=== PATIENT | female | born 1930 | race Caucasian/White ===

== ENCOUNTER 2016-10-29 10:50 | Inpatient (IN) | payer MEDICARE ==
[2016-10-29] MEDS ORDERED: oxyCODONE/Acetamin 5/325 MG* TAB PO ONE (11:18)
--- NOTE | 2016-10-29 11:27 | ED ---
Lower Extremity - HPI Summary HPI Summary: Patient arrives to ED with CC of right ankle pain and inability to bear weight s /p fall last night. Patient tripped over the coffee table and thinks she may have everted the ankle. denies hitting head, denies LOC. Immediate 10/10onset of pain. Nothing makes pain better or worse. Has been taking 400mg Ibuprofen since last night. PMHx includes RA with previous pain and complications of the R ankle. ROM limited in R ankle d/t pain. Ecchymosis surrounding medial ankle with deformity noted over medial ankle. Foot is in pronation during examination d/t visual deformity. Denies pain in knee or proximal lower leg. - History of Current Complaint Chief Complaint: EDExtremityLower Stated Complaint: RT LEG INJURY Time Seen by Provider: 10/29/16 11:04 Hx Obtained From: Patient Mechanism Of Injury: Fall From A Standing Position - tripping over object Onset of Pain: Hours Onset/Duration: Minutes Severity Initially: Moderate Severity Currently: Severe Pain Intensity: 5 Pain Scale Used: 0-10 Numeric Timing: Constant Location: Is Discrete @ - Right ankle Character Of Pain: Dull, Aching Associated Signs And Symptoms: Positive: Bruising Aggravating Factor(s): Standing, Ambulation Alleviating Factor(s): Rest Able to Bear Weight: No - Risk Factors Gout Risk Factors: Age Over 40 DVT Risk Factors: Negative Septic Arthritis Risk Factor: Prosthesis - bilateral knee replacements - Allergies/Home Medications Allergies/Adverse Reactions: Allergies Allergy/AdvReac Type Severity Reaction Status Date / Time Penicillins Allergy Unknown Unknown Verified 05/28/16 14:11 Reaction Details Home Medications: Home Medications Atenolol TAB* [Tenormin TAB* 25 MG] 25 mg PO DAILY 10/29/16 [History Confirmed 10/29/16] Calcium Carbonate-Cholecalcife [Calcium 600 + D 600-200 mg-Unit] 1 tab PO DAILY 10/29/16 [History Confirmed 10/29/16] Folic Acid TAB* [Folvite TAB*] 1 mg PO DAILY 10/29/16 [History Confirmed ] Methotrexate TAB* 10 mg PO MO 10/29/16 [History Confirmed 10/29/16] Olopatadine 0.2% (NF) [Pataday 0.2% (NF)] 1 drop BOTH EYES DAILY 10/29/16 [ History Confirmed 10/29/16] Simvastatin TAB(NF) [Zocor(NF)] 20 mg PO DAILY 10/29/16 [History Confirmed 10/29] PMH/Surg Hx/FS Hx/Imm Hx Previously Healthy: Yes Endocrine/Hematology History: Reports: Hx Thyroid Disease Denies: Hx Diabetes Cardiovascular History: Reports: Hx Hypertension, Hx Syncope Denies: Hx Congestive Heart Failure, Hx Pacemaker/ICD Respiratory History: Reports: Hx Pneumonia - 16 yrs ago., Hx Seasonal Allergies Denies: Hx Asthma, Hx Chronic Obstructive Pulmonary Disease (COPD) GI History: Reports: Other GI Disorders - DIVERTICULOSIS Denies: Hx Ulcer History: Denies: Hx Renal Disease Musculoskeletal History: Reports: Other Musculoskeletal History - RA Denies: Hx Osteoporosis Sensory History: Reports: Hx Cataracts, Hx Contacts or Glasses, Hx Hearing Aid - bilaterally Opthamlomology History: Reports: Hx Cataracts, Hx Contacts or Glasses Psychiatric History: Denies: Hx Panic Disorder - Cancer History Cancer Type, Location and Year: lung cancer two years ago, small, removed, no chemo - Surgical History Surgery Procedure, Year, and Place: BILATERAL KNEES, CHOLECYSTECTOMY, APPENDECTOMY, RIGHT PARTIAL PNEUMONECTOMY Infectious Disease History: No Infectious Disease History: Denies: Hx Hepatitis, Hx Human Immunodeficiency Virus (HIV), Traveled Outside the [place] in Last 30 Days - Family History Known Family History: Positive: None - Social History Occupation: Retired Lives: With Family Alcohol Use: Daily Alcohol Amount: glass of wine every night Hx Substance Use: No Substance Use Type: Reports: None Smoking Status (MU): Former Smoker Amount Used/How Often: quit smoking over 25 yrs ago. Have You Smoked in the Last Year: No Review of Systems Constitutional: Negative Eyes: Negative Cardiovascular: Negative Respiratory: Negative Positive: Arthralgia - right ankle pain, Decreased ROM - over right ankle Skin: Negative Neurological: Negative Psychological: Normal All Other Systems Reviewed And Are Negative: Yes Physical Exam Triage Information Reviewed: Yes Vital Signs On Initial Exam: Initial Vitals Temp Pulse Resp BP Pulse Ox 97.8 F 72 18 158/56 99 10/29/16 10:53 10/29/16 10:53 10/29/16 10:53 10/29/16 10:53 10/29/16 10:53 Vital Signs Reviewed: Yes Appearance: Positive: Well-Appearing, No Pain Distress Skin: Positive: Warm, Tender - with ecchymosis over medial R ankle with deformity Head/Face: Positive: Normal Head/Face Inspection Eyes: Positive: Normal, EOMI, MARIA E ENT: Positive: Normal ENT inspection Neck: Positive: Supple, Nontender, No Lymphadenopathy Respiratory/Lung Sounds: Positive: Clear to Auscultation, Breath Sounds Present Cardiovascular: Positive: Normal Musculoskeletal: Positive: Abnormal @ - deformity at r ankle, Pain @ - medial and lateral R ankle, no pain over knee or proximal lower extremity, Other - anterior drawer not performed d/t deformity and pain. no pain over palpation of calcaneus. Pain expressed at 10/10 over medial and lateral talus. ROM limited d/ t pain. Neurological: Positive: Sensory/Motor Intact, Other - pulses intact bilaterally of lower extremity Psychiatric: Positive: Normal AVPU Assessment: Alert Diagnostics - Vital Signs Vital Signs Temp Pulse Resp BP Pulse Ox 10/29/16 10:53 97.8 F 72 18 158/56 99 - Laboratory Result Diagrams: 10/29/16 13:15 10/29/16 13:15 Lab Statement: Any lab studies that have been ordered have been reviewed, and results considered in the medical decision making process. Lower Extremity Course/Dx - Course Course Of Treatment: Patient sent to xray. given oxycodone based on previous experience with medication and beers criteria recommendation for pain management in elderly. Patient experienced soft pressures 90/47 - and upper abdominal pain 1 hour after administration. Xray showed Trimalleolar fracture subluxed. Dr. Shrestha consulted with BIANCA, then . D/t reaction with pain management, we were unable to administer pain medication prior to reduction attempt. Post manipulation xray showed subluxation without reduction. Sugar tong splint applied. to consult with Fady. Will place sugar tong splint with adequate padding per Dr. Shrestha's orders. Admit to floor. Assessment/Plan: Dr Delacruz or Fady to see as inpatient tomorrow. - admit to hospitalist - Diagnoses Differential Diagnosis/HQI/PQRI: Positive: Dislocation, Fracture (Closed), Fracture (Open) Provider Diagnoses: Trimalleolar fracture of right ankle Discharge - Discharge Plan Condition: Stable Disposition: ADMITTED TO [facility]
--- NOTE | 2016-10-29 12:02 | RAD ---
INDICATION: Right ankle injury. TECHNIQUE: 3 views of the right ankle were obtained. FINDINGS: There is diffuse soft tissue swelling. The bones appear osteoporotic. The tibia is subluxed medial relative to the talus. There is a transverse fracture of the medial malleolus which is displaced lateral relative to the proximal tibia. There is a transverse fracture of the metaphysis of the distal fibula which extends to the ankle mortise. The distal lateral fragment is displaced lateral proximal and one shaft diameter and demonstrates mild lateral angulation. There also appears to be a nondisplaced fracture of the posterior malleolus. IMPRESSION: TRIMALLEOLAR FRACTURE SUBLUXATION.
[2016-10-29] MEDS ORDERED: Aspirin Low Dose CHEW TAB* 81 MG PO ONE (13:18)
[2016-10-29] MEDS ORDERED: NS 0.9% 1000 ML* 1,000 ML IV ONE (13:20)
[2016-10-29 13:33] LABS: Hematocrit 34 % (35-47); Hemoglobin 11.6 g/dl (12.0-16.0); Mean Corpuscular HGB Conc 34 g/dl (31-36); Mean Corpuscular Hemoglobin 32 pg (27-31); Mean Corpuscular Volume 96 fL (80-97); Mean Platelet Volume 8 um3 (7.4-10.4); Red Blood Count 3.58 10^6/ul (4.0-5.4); Red Cell Distribution Width 15 % (10.5-15); White Blood Count 12.9 10^3/ul (3.5-10.8)
[2016-10-29 13:45] LABS: Albumin 3.5 g/dL (3.2-5.2); BUN/Creatinine Ratio 31.6 (8-20); Calcium 9.5 mg/dL (8.6-10.3); EGFR African American 72.1 (>60); Globulin 2.3 g/dL (2-4); Potassium 4.1 mmol/L (3.5-5.0); Total Bilirubin 0.6 mg/dL (0.2-1.0); Total Protein 5.8 g/dL (6.4-8.9)
--- NOTE | 2016-10-29 14:10 | RAD ---
INDICATION: Chest pain and pressure. COMPARISON: There are no prior studies available for comparison. TECHNIQUE: A portable view of the chest was obtained. FINDINGS: Cardiac and mediastinal contours appear to be within normal limits. The lungs are hyperinflated and clear. No pleural effusion is seen. IMPRESSION: FINDINGS SUGGESTIVE OF COPD, NO EVIDENCE FOR ACUTE FINDING.
--- NOTE | 2016-10-29 14:13 | RAD ---
INDICATION: Trimalleolar fracture subluxation status post external reduction. COMPARISON: Comparison is made with a prior x-ray study of the same date from approximately 2 hours earlier. TECHNIQUE: 3 views of the right ankle were obtained. FINDINGS: The bones are visualized through a plaster cast. The tibia is subluxed medial relative to the talus which appears unchanged. Again note is made of a transverse displaced fractures of the medial and lateral malleoli. There is also a nondisplaced fracture of the posterior malleolus. There is no significant change from the prior study. IMPRESSION: TRIMALLEOLAR FRACTURE SUBLUXATION, UNCHANGED.
[2016-10-29 14:15] LABS: TSH (Thyroid Stimulating Horm) 3.71 mcIU/mL (0.34-5.60)
[2016-10-29] MEDS ORDERED: oxyCODONE/Acetamin 5/325 MG* TAB PO PRN (16:18)
[2016-10-29] MEDS ORDERED: Acetaminophen TAB* 325 MG PO PRN (16:18)
[2016-10-29] MEDS ORDERED: Ondansetron INJ* 2 MG/ML VIAL IV PRN (16:18)
[2016-10-29] MEDS ORDERED: fentaNYL* 50 MCG/ML 2 ML VIAL (100 MCG VIAL) IV SLOW PU ONE (16:23)
[2016-10-29] MEDS ORDERED: HYDROmorphone INJ* 1 MG/ML CARPUJECT SYRINGE IV SLOW PU PRN ×2 (16:30→19:40)
[2016-10-29] MEDS ORDERED: Enoxaparin(*) 40 MG/0.4 ML SYR SUBCUT SCH (17:00)
--- NOTE | 2016-10-29 20:02 | HP ---
ADMISSION HISTORY AND PHYSICAL: DATE OF ADMISSION/DICTATION: 10/29/16 PRIMARY CARE PROVIDER: Jaqui Nayak NP ADMITTING PROVIDER: BIANCA Berkowitz SUPERVISING PHYSICIAN: Dr. Jim Anderson.* (DICTATED BY BIANCA BERKOWITZ) CHIEF COMPLAINT: Ankle pain and deformity. HISTORY OF PRESENT ILLNESS: This is a very pleasant 85-year-old female with history of hypertension, rheumatoid arthritis, hyperlipidemia, and hypothyroidism, who presented after tripping over the leg of one of her tables resulting in significant swelling, ecchymosis, and deformity of her right ankle. This was done yesterday and the patient has been unable to walk on it since that time. X-rays in the emergency department demonstrate a trimalleolar fracture. The patient received oxycodone for pain relief, after which she became severely nauseated with chest pain and hypotensive with systolic pressures dropping into the 70s. These symptoms resolved spontaneously after several minutes. The patient does not have any experience with other narcotic medications and states that she has not had any similar symptoms in the past. The patient denies any cardiac history for her. Again, denies any history of similar symptoms and she was not experiencing any chest pain or other systemic symptoms prior to receiving the oxycodone. PAST MEDICAL HISTORY: 1. Hypertension. 2. Rheumatoid arthritis. 3. Hyperlipidemia. 4. Hypothyroidism. PAST SURGICAL HISTORY: 1. Cholecystectomy. 2. Total hysterectomy and bilateral salpingectomy. 3. Bilateral total knee replacements. HOME MEDICATIONS: 1. Atenolol 25 mg p.o. daily. 2. Calcium carbonate and vitamin D supplementation 600/200 one tablet p.o. daily. 3. Folic acid 1 mg p.o. daily. 4. Levothyroxine 25 mcg p.o. daily. 5. Methotrexate 10 mg p.o. weekly on Mondays. 6. Pataday eye drops 0.2% one drop in both eyes daily. 7. Simvastatin 20 mg p.o. daily. SOCIAL HISTORY: The patient lives at home with her . She drinks one glass of wine daily. She quit smoking about 30 years ago and has less than a 10 -pack- year smoking history. REVIEW OF SYSTEMS: As noted above in HPI and is otherwise negative. PHYSICAL EXAMINATION GENERAL: This is a very pleasant 85-year-old female, who appears to be in obvious pain from her ankle, but is otherwise incredibly pleasant in conversation. VITAL SIGNS: Initial vitals, temperature 97.8 degrees Fahrenheit, pulse 72 beats per minute, respiratory rate 18 per minute, oxygen saturation 99% on room air, and blood pressure mmHg. HEENT: Head is normocephalic, atraumatic. Mucous membranes are pink and moist. RESPIRATORY: Lungs are clear to auscultation without wheezes, crackles, or rhonchi. CARDIOVASCULAR: Heart has a regular rate and rhythm without murmurs, rubs, or gallops. ABDOMEN: Abdomen is soft and nontender to palpation. EXTREMITIES: Right ankle is splinted and wrapped in an Juan José bandage. Exam was not completed. Left lower extremity is free of edema and deformity. PSYCH: The patient is alert and appropriately oriented. SKIN: Limited exam shows no concerning rashes or lesions. DIAGNOSTIC STUDIES/LAB DATA: CBC shows white blood cell count of 12,900, hemoglobin 11.6 g/dL, and platelet count of 280,000. INR 0.91, PTT of 23.6 Comprehensive metabolic panel essentially unremarkable with a sodium of 134 mmol /L, potassium 4.1 mmol/L, BUN of 30, and creatinine of 0.95. Random glucose of 132 mg/dL. Lactic acid 1.2. Magnesium 2.0. Transaminases and total bilirubin within normal limits. TSH 3.71. Imaging: Chest x-ray shows no acute process. EKG shows a normal sinus rhythm with one PVC. Ankle x-ray shows a trimalleolar fracture - attempted reduction is unsuccessful. ASSESSMENT AND PLAN: This is a pleasant 85-year-old female with a history of hypertension, hyperlipidemia, rheumatoid arthritis, and hypothyroidism, who had a mechanical injury at home resulting in trimalleolar fracture, who had an episode of hypotension and chest pain after receiving oxycodone in the emergency department. 1. Ankle fracture - Dr. Shrestha has been asked to please see this patient. Surgical management per Orthopedic Surgery. 2. Hypotension and chest pain - this seems to be iatrogenic as it corresponds directly after receiving oxycodone. We will hold off on giving any additional oxycodone. We will plan on obtaining serial troponin levels. If negative and her EKG is also within normal limits, no need to pursue echocardiogram at this time. She has no cardiac history or other cardiac symptoms prior to receiving the oxycodone. 3. Rheumatoid arthritis - the patient can likely continue on her typical schedule of methotrexate, but this will be determined depending on timing of surgery and extent as such. 4. Hypothyroidism - continue current dose of levothyroxine. 5. Hyperlipidemia - continue simvastatin. 6. Hypertension - continue atenolol. 7. Code status: The patient is full code. 8. DVT prophylaxis - the patient will be started on 40 mg of Lovenox subcu daily. 9. Healthcare proxy is listed as her . DISPOSITION: The patient will be admitted to the hospital for trimalleolar ankle fracture pending surgical evaluation and an episode of hypotension and chest pain that is likely iatrogenic in origin. BIANCA BERKOWITZ CC: Jaqui Nayak NP* [id number]/[facility] #: [id number] MTDRebeca
[2016-10-29] MEDS: HYDROmorphone INJ* 1 MG/ML CARPUJECT SYRINGE IV PRN (22:15)
[2016-10-30] MEDS: HYDROmorphone INJ* 1 MG/ML CARPUJECT SYRINGE IV PRN ×3 (04:34→15:00)
[2016-10-30] MEDS: Levothyroxine TAB* 25 MCG TAB PO SCH (05:11)
[2016-10-30 05:16] LABS: Hematocrit 32 % (35-47); Hemoglobin 10.9 g/dl (12.0-16.0); Mean Corpuscular HGB Conc 34 g/dl (31-36); Mean Corpuscular Hemoglobin 33 pg (27-31); Mean Corpuscular Volume 97 fL (80-97); Mean Platelet Volume 8 um3 (7.4-10.4); Red Blood Count 3.33 10^6/ul (4.0-5.4); Red Cell Distribution Width 15 % (10.5-15)
[2016-10-30 05:33] LABS: BUN/Creatinine Ratio 32.8 (8-20); Calcium 8.9 mg/dL (8.6-10.3); EGFR African American 120.2 (>60); EGFR Non-African American 93.4 (>60); Potassium 4.2 mmol/L (3.5-5.0)
[2016-10-30] MEDS: Olopatadine 0.2% (NF) 1 DROP BTL BOTH EYES SCH (08:52)
[2016-10-30] MEDS: Atorvastatin* 10 MG TAB PO SCH (08:53)
[2016-10-30] MEDS: Folic Acid TAB* 1 MG PO SCH (08:53)
[2016-10-30] MEDS: Atenolol TAB* 25 MG PO SCH (08:53)
[2016-10-30] MEDS ORDERED: HYDROmorphone INJ* 1 MG/ML CARPUJECT SYRINGE IV SLOW PU PRN (15:31)
--- NOTE | 2016-10-30 16:37 | PN ---
Subjective Date of Service: 10/30/16 Interval History: no more CP, hypotension resolved. suspect a reaction to oxycodone. Pt feels well. Pain in R ankle still present, planned for OT tonight Objective Active Medications: Acetaminophen (Tylenol Tab*) 650 mg PO Q4H PRN PRN Reason: FEVER/PAIN Atenolol (Tenormin Tab*) 25 mg PO DAILY [facility] Last Admin: 10/30/16 08:53 Dose: 25 mg Atorvastatin Calcium (Lipitor*) 10 mg PO DAILY [facility] Last Admin: 10/30/16 08:53 Dose: 10 mg Folic Acid (Folvite Tab*) 1 mg PO DAILY [facility] Last Admin: 10/30/16 08:53 Dose: 1 mg Hydromorphone HCl (Dilaudid Iv*) 0.5 mg IV Q2H PRN PRN Reason: PAIN Last Admin: 10/30/16 15:00 Dose: 0.5 mg Hydromorphone HCl (Dilaudid Iv*) 0.5 mg IV SLOW PU ONCE PRN PRN Reason: PAIN - SEVERE Cefazolin Sodium/Dextrose (Kefzol Premix(*)) 2 gm in 50 mls @ 100 mls/hr IVPB ONCE ONE Stop: 10/30/16 18:29 Lactated Ringer's (Lactated Ringers 1000 Ml Bag*) 1,000 mls @ 75 mls/hr IV PER RATE [facility] Last Admin: 10/30/16 09:44 Dose: 75 mls/hr Levothyroxine Sodium (Synthroid Tab*) 25 mcg PO 0600 [facility] Last Admin: 10/30/16 05:11 Dose: 25 mcg Olopatadine HCl (Pataday 0.2% (Nf)) 1 drop BOTH EYES DAILY [facility] Last Admin: 10/30/16 08:52 Dose: Not Given Ondansetron HCl (Zofran Inj*) 4 mg IV Q4H PRN PRN Reason: NAUSEA/VOMITING Vital Signs 10/29/16 10/29/16 10/29/16 16:54 16:57 17:00 Temperature Pulse Rate 79 81 Respiratory 16 18 17 Rate Blood Pressure 134/57 (mmHg) O2 Sat by Pulse 100 100 Oximetry 10/29/16 10/29/16 10/29/16 17:30 17:57 18:34 Temperature 97.6 F Pulse Rate 76 88 Respiratory 13 20 20 Rate Blood Pressure 123/50 152/55 (mmHg) O2 Sat by Pulse 99 100 Oximetry 10/29/16 10/29/16 10/29/16 19:50 20:00 20:50 Temperature Pulse Rate Respiratory 20 20 20 Rate Blood Pressure (mmHg) O2 Sat by Pulse Oximetry 10/29/16 10/29/16 10/29/16 22:15 23:15 23:51 Temperature 97.9 F Pulse Rate 85 Respiratory 20 16 16 Rate Blood Pressure 127/62 (mmHg) O2 Sat by Pulse 93 Oximetry 10/30/16 10/30/16 10/30/16 03:10 04:34 05:34 Temperature 98.3 F Pulse Rate 83 Respiratory 20 20 20 Rate Blood Pressure 142/53 (mmHg) O2 Sat by Pulse 97 Oximetry 10/30/16 10/30/16 10/30/16 07:36 08:00 10:02 Temperature 98.0 F Pulse Rate 78 Respiratory 16 16 16 Rate Blood Pressure 151/50 (mmHg) O2 Sat by Pulse 96 Oximetry 10/30/16 10/30/16 10/30/16 11:02 11:25 15:00 Temperature 97.4 F Pulse Rate 58 Respiratory 15 16 18 Rate Blood Pressure 107/47 (mmHg) O2 Sat by Pulse 97 Oximetry 10/30/16 15:16 Temperature 97.7 F Pulse Rate 71 Respiratory 18 Rate Blood Pressure 150/58 (mmHg) O2 Sat by Pulse 95 Oximetry Oxygen Devices in Use Now: None Appearance: 85 yo F in NAD, AAOx3 Eyes: No Scleral Icterus, PERRLA Ears/Nose/Mouth/Throat: NL Teeth, Lips, Gums, Mucous Membranes Moist Neck: NL Appearance and Movements; NL JVP, Trachea Midline Respiratory: Symmetrical Chest Expansion and Respiratory Effort, Clear to Auscultation Cardiovascular: NL Sounds; No Murmurs; No JVD, RRR Abdominal: NL Sounds; No Tenderness; No Distention, No Hepatosplenomegaly Lymphatic: No Cervical Adenopathy Extremities: No Edema, No Clubbing, Cyanosis, - - R ankle in cast Skin: No Rash or Ulcers, No Nodules or Sclerosis Neurological: Alert and Oriented x 3, NL Muscle Strength and Tone Result Diagrams: 10/30/16 04:49 10/30/16 04:49 Assess/Plan/Problems-Billing Assessment: 85 yo F with h/o HTN, RA, lung cancer/nodule(s/p resection) presents s/p mechanical fall with trimalleolar R ankle fx. Developed CP and hypotension after oxycodone - Patient Problems (1) Trimalleolar fracture of ankle, closed Comment: R ankle, s/p mechanical fall. Pt is optimised for surgery and planned to go to OR with Dr. Fady hodge (2) Chest pain Comment: due to adverse reaction to oxycodone. troponin unremarkable, no EKG changes. (3) Hypothyroidism Comment: cont synthroid TSH 3.7 on 10/29/16 (4) HTN (hypertension) Comment: controlled, cont Atenolol (5) Arthritis, rheumatoid Comment: methotrexate held periop (6) DVT prophylaxis Comment: to be started post op as per ortho
[2016-10-30] MEDS ORDERED: ceFAZolin 2 GM PREMIX (*) 2 GM/50 ML BAG IVPB ONE (18:00)
[2016-10-30] MEDS ORDERED: Propofol* 10 MG/ML 20 ML BTL IV PUSH ONE (18:56)
[2016-10-30] MEDS ORDERED: Lidocaine 2% MPF* 2 ML VIAL ONE (18:56)
[2016-10-30] MEDS ORDERED: Bupivacaine 0.25% EPI 200,000* 30 ML SDV ONE (19:04)
[2016-10-30] MEDS ORDERED: Phenylephrine IV* 40 MCG/ML 10 ML SYRINGE ONE (19:22)
[2016-10-30] MEDS ORDERED: DiMENhydriNATE IV* 50 MG/ML VIAL IV PUSH PRN (19:45)
[2016-10-30] MEDS ORDERED: Ondansetron INJ* 2 MG/ML VIAL ONE (19:50)
[2016-10-30] MEDS ORDERED: fentaNYL* 50 MCG/ML 2 ML VIAL (100 MCG VIAL) ONE (19:50)
[2016-10-30] MEDS ORDERED: Ketorolac INJ* 30 MG/ML 1 ML VIAL ONE (19:50)
[2016-10-30] MEDS: fentaNYL* 50 MCG/ML 2 ML VIAL (100 MCG VIAL) IV PRN ×3 (21:00→21:33)
--- NOTE | 2016-10-30 22:44 | RAD ---
INDICATION: Ankle fracture ORIF COMPARISON: October 29, 2016 FINDINGS: 28.2 seconds of fluoroscopy were provided for the with. 6 department. Fluoroscopic spot imaging of the ankle were obtained for operative control and show open reduction and internal fixation of the bimalleolar fracture with jain of the ankle mortise . CPT II Codes: 6045F (fluoro time doc)
--- NOTE | 2016-10-31 02:04 | OP ---
DATE OF OPERATION: 10/30/16 - ROOM #343 DATE OF : 31 SURGEON: Ayaz Shrestha MD ANESTHESIOLOGIST: James Frazier MD ANESTHESIA: General. PRE-OP DIAGNOSIS: Displaced trimalleolar right ankle fracture. POST-OP DIAGNOSIS: Displaced trimalleolar right ankle fracture. OPERATIVE PROCEDURE: ORIF, right ankle fracture. ESTIMATED BLOOD LOSS: Less than 10 cc. COMPLICATIONS: None. SUMMARY: Ms. Paniagua is an 85-year-old female who had fallen at home on Friday evening, sustaining a right ankle injury. Her has helped her get to bed and the next morning she was unable to get up and walk, so was brought to the emergency room here at [facility]. X-rays found a significantly displaced trimalleolar fracture and they had given her some pain medicines to attempt a closed reduction. Unfortunately, with the pain medicine, she describes an epigastric pain and there was concerned for cardiac involvement. Therefore, no other significant medications were given and they were unsuccessful with trying to perform a closed reduction. She had serial troponins taken, which were being normal as well as being monitored on the telemetry floor. This morning the hospitalist service felt that she was optimized for surgery. I discussed with them that an ORIF of the fracture should work well to realign the bones in place. We talked very specifically and how the hardware is relatively small and thin and is good to hold the bone in place, but is not sufficient for her to actually walk. I discussed with her how she would need to be toe-touch weightbearing at most and that would be for approximately four weeks, after that we would progress her. Risks of surgery such as infection, scar formation , stiffness, trouble wound healing as well as bone healing because of her rheumatoid arthritis and methotrexate as well as DVT and PE were discussed. We also discussed that we would probably need to hold her methotrexate for at least the next two weeks. She had wished to proceed. DESCRIPTION OF PROCEDURE: The patient was brought to the OR and an LMA was placed. Right foot and ankle was prepped and then draped. With taking the splint down, she had 2 small blisters well above the medial fracture and these had broken when the Webril padding was taken off. Skin was a bit purplish directly over where she was mildly tented over the medial malleolus, but later on when the area was injected, none of the local would leak out from that area. Right ankle had been close reduced and was then prepped and then draped. The skin over the incision laterally was infiltrated using 0.25% Marcaine with epinephrine and a lateral incision was made centered directly over the fracture. She was quite lean and with just incising the skin, I was right on top of periosteum. Periosteum was sharply incised and periosteal elevator was used to elevate the periosteum both above and below the level of the fracture. Fracture was clearly evident and periosteal elevator was placed into the fracture and levered, so that the hematoma could be washed out. Closed reduction was again performed with my thumb pushing more on the fracture and her alignment was now perfect. Lion-jaw was placed and C-arm was brought in and her mortise was perfectly restored and posteriorly, she was in excellent positioning as well. Six-hole plate was placed and in standard AO fashion, holes were drilled, measured, and screws were placed. C-arm guidance was used through this to make sure the screws were not too long and once the plate was fully placed, the subcutaneous sutures were approximating 2-0 Vicryl as able and a few spots to get more soft tissue coverage over the plate, but there were a few spots mainly in the center, where I was unable to do so. Vertical mattress sutures were then used to bring the skin together and I was able to obtain a nice closure there. Attention was turned to the medial side. With palpation, I could feel where her fracture was and C-arm was used to confirm that positioning. Incision was made over the medial malleolus and carried down again just through her skin and once again, I was right on top of periosteum. Saphenous vein and nerve were not seen. Using the periosteal elevator, I was able to pick out the periosteum from in between the layers of the fracture and with pushing on the medial malleolus, nice alignment was obtained. A 2.0 K- wire was then used to fixate the medial mal piece to the tibia and drill was then run. Both pieces were allowed to remain in the tibia for a C-arm picture to make sure I did not cut the corner of the medial aspect of the mortise. I did not and a screw with a washer was placed into the first hole and then the 2.0 K-wire was pulled and the 2.5 drill was run over that and a second partially -threaded 3.5 cortical screw was placed. Final C-arm pictures were taken including AP, lateral, and a mortise view. Her alignment appeared good. Medial wound was then irrigated and closed using 2-0 Vicryl. Running 3-0 nylon was used to close the medial site. Another 10 cc was injected into the ankle joint later for pain relief. Xeroform was placed over the wounds as well as over where the blister was and sterile 4x4's were placed. Sterile Webril was used to hold this in place. Drapes were taken down and second Webril was then used for some padding and a 4-inch Ortho-Glass was then placed and allowed to harden. She was then awoken in the OR and then had the LMA removed. She was then stable on transfer to the recovery room. [id number]/[facility] #: [id number] RAUL
[2016-10-31] MEDS ORDERED: ceFAZolin 1 GM in Dextrose (*) 1 GM/50 ML BAG IVPB SCH (03:00)
[2016-10-31] MEDS: ceFAZolin 1 GM in Dextrose (*) 1 GM/50 ML BAG IVPB SCH ×3 (05:25→21:22)
[2016-10-31] MEDS: Levothyroxine TAB* 25 MCG TAB PO SCH (05:27)
[2016-10-31 07:04] LABS: Hematocrit 33 % (35-47); Mean Corpuscular HGB Conc 34 g/dl (31-36); Mean Corpuscular Hemoglobin 32 pg (27-31); Mean Corpuscular Volume 95 fL (80-97); Mean Platelet Volume 9 um3 (7.4-10.4); Red Cell Distribution Width 15 % (10.5-15); White Blood Count 9.5 10^3/ul (3.5-10.8)
[2016-10-31 07:16] LABS: Calcium 8.7 mg/dL (8.6-10.3); EGFR African American 124.9 (>60); EGFR Non-African American 97.1 (>60)
[2016-10-31] MEDS: Folic Acid TAB* 1 MG PO SCH (09:00)
[2016-10-31] MEDS: Aspirin TAB* 325 MG PO SCH (09:00)
[2016-10-31] MEDS: Atenolol TAB* 25 MG PO SCH (09:00)
[2016-10-31] MEDS: Atorvastatin* 10 MG TAB PO SCH (09:00)
[2016-10-31] MEDS: Docusate CAP* 100 MG PO SCH ×2 (09:00→21:22)
[2016-10-31] MEDS: Heparin VIAL(*) 5000 UNITS/ML VIAL (FIVE THOUSAND) SUBCUT SCH ×2 (09:00→21:22)
[2016-10-31] MEDS: HYDROcodone/ACETAMIN 5-325 MG* 1 TAB PO PRN ×2 (09:05→16:50)
--- NOTE | 2016-10-31 10:05 | PN ---
Progress Note - Progress Note SOAP: Subjective: [] Objective: [] Assessment: [] Plan: []
[2016-10-31] MEDS: Olopatadine 0.2% (NF) 1 DROP BTL BOTH EYES SCH (11:05)
[2016-10-31] MEDS ORDERED: Magnesium Hydroxide LIQ* 30 ML UDC PO ONE (12:50)
--- NOTE | 2016-10-31 16:45 | PN ---
Subjective Date of Service: 10/31/16 Interval History: Pt feels well post op. Pain in R ankle is "minimal". Objective Active Medications: Acetaminophen (Tylenol Tab*) 650 mg PO Q4H PRN PRN Reason: FEVER/PAIN Acetaminophen/Hydrocodone Bitart (Amoret 5-325 Tab*) 1 tab PO Q3H PRN PRN Reason: PAIN MODERATE Last Admin: 10/31/16 09:05 Dose: 1 tab Aspirin (Aspirin Tab*) 325 mg PO DAILY [facility] Last Admin: 10/31/16 09:00 Dose: 325 mg Atenolol (Tenormin Tab*) 25 mg PO DAILY [facility] Last Admin: 10/31/16 09:00 Dose: 25 mg Atorvastatin Calcium (Lipitor*) 10 mg PO DAILY [facility] Last Admin: 10/31/16 09:00 Dose: 10 mg Docusate Sodium (Colace Cap*) 100 mg PO BID [facility] Last Admin: 10/31/16 09:00 Dose: 100 mg Folic Acid (Folvite Tab*) 1 mg PO DAILY [facility] Last Admin: 10/31/16 09:00 Dose: 1 mg Heparin Sodium (Porcine) (Heparin Vial(*)) 5,000 units SUBCUT BID [facility] Last Admin: 10/31/16 09:00 Dose: 5,000 units Hydromorphone HCl (Dilaudid Iv*) 0.5 mg IV Q2H PRN PRN Reason: PAIN Last Admin: 10/30/16 15:00 Dose: 0.5 mg Lactated Ringer's (Lactated Ringers 1000 Ml Bag*) 1,000 mls @ 75 mls/hr IV PER RATE [facility] Last Admin: 10/30/16 22:21 Dose: 75 mls/hr Cefazolin Sodium/Dextrose (Kefzol 1 Gm In Dextrose Duplex (*)) 1 gm in 50 mls @ 200 mls/hr IVPB 0500,1300,2100 [facility] Stop: 10/31/16 21:14 Last Admin: 10/31/16 13:09 Dose: 200 mls/hr Levothyroxine Sodium (Synthroid Tab*) 25 mcg PO 0600 [facility] Last Admin: 10/31/16 05:27 Dose: 25 mcg Magnesium Hydroxide (Milk Of Magnesia Liq*) 30 ml PO BEDTIME [facility] Olopatadine HCl (Pataday 0.2% (Nf)) 1 drop BOTH EYES DAILY [facility] Last Admin: 10/31/16 11:05 Dose: Not Given Ondansetron HCl (Zofran Inj*) 4 mg IV Q4H PRN PRN Reason: NAUSEA/VOMITING Vital Signs 10/30/16 10/30/16 10/30/16 20:00 20:40 20:45 Temperature 97.0 F Pulse Rate 72 71 Respiratory 22 12 16 Rate Blood Pressure 103/88 154/60 (mmHg) O2 Sat by Pulse 100 95 Oximetry 10/30/16 10/30/16 10/30/16 20:50 20:58 21:00 Temperature Pulse Rate 71 71 Respiratory 14 14 15 Rate Blood Pressure 146/55 160/68 (mmHg) O2 Sat by Pulse 94 100 Oximetry 10/30/16 10/30/16 10/30/16 21:13 21:17 21:30 Temperature 96.8 F Pulse Rate 68 67 Respiratory 14 16 14 Rate Blood Pressure 159/65 169/73 (mmHg) O2 Sat by Pulse 100 95 Oximetry 10/30/16 10/30/16 10/30/16 21:33 21:44 21:55 Temperature 97.5 F Pulse Rate 68 72 Respiratory 12 12 18 Rate Blood Pressure 148/46 144/56 (mmHg) O2 Sat by Pulse 95 100 Oximetry 10/30/16 10/30/16 10/31/16 22:01 23:51 00:19 Temperature 97.5 F 98.0 F 97.8 F Pulse Rate 72 77 77 Respiratory 18 16 16 Rate Blood Pressure 144/56 146/55 102/77 (mmHg) O2 Sat by Pulse 100 100 100 Oximetry 10/31/16 10/31/16 10/31/16 00:48 02:20 04:15 Temperature 98.2 F 97.9 F Pulse Rate 87 86 Respiratory 16 18 16 Rate Blood Pressure 159/72 (mmHg) O2 Sat by Pulse 93 97 Oximetry 10/31/16 10/31/16 10/31/16 07:21 08:00 09:05 Temperature 98.2 F Pulse Rate 75 Respiratory 16 18 18 Rate Blood Pressure 136/62 (mmHg) O2 Sat by Pulse 94 Oximetry 10/31/16 10/31/16 10/31/16 11:05 11:28 15:09 Temperature 98.0 F 98.4 F Pulse Rate 64 75 Respiratory 18 16 16 Rate Blood Pressure 102/38 121/47 (mmHg) O2 Sat by Pulse 93 94 Oximetry Oxygen Devices in Use Now: None Appearance: 85 yo F in nAD, aAOx3 Eyes: No Scleral Icterus, PERRLA Ears/Nose/Mouth/Throat: NL Teeth, Lips, Gums, Mucous Membranes Moist Neck: NL Appearance and Movements; NL JVP, Trachea Midline Respiratory: Symmetrical Chest Expansion and Respiratory Effort, Clear to Auscultation Cardiovascular: NL Sounds; No Murmurs; No JVD, RRR Abdominal: NL Sounds; No Tenderness; No Distention Lymphatic: No Cervical Adenopathy Extremities: No Clubbing, Cyanosis, - - R ankle in post op splint, not unwrapped Skin: No Rash or Ulcers, No Nodules or Sclerosis Neurological: Alert and Oriented x 3, NL Muscle Strength and Tone Result Diagrams: 10/31/16 06:35 10/31/16 06:35 Assess/Plan/Problems-Billing Assessment: 85 yo F with h/o HTN, RA, lung cancer/nodule(s/p resection) presents s/p mechanical fall with trimalleolar R ankle fx. Developed CP and hypotension after oxycodone - Patient Problems (1) Trimalleolar fracture of ankle, closed Comment: R ankle, s/p mechanical fall. s/p ORIF on 10/30/16 (2) Chest pain Comment: due to adverse reaction to oxycodone. troponin unremarkable, no EKG changes. (3) Hypothyroidism Comment: cont synthroid TSH 3.7 on 10/29/16 (4) HTN (hypertension) Comment: controlled, cont Atenolol (5) Arthritis, rheumatoid Comment: methotrexate held periop (6) DVT prophylaxis Comment: heparin sc
[2016-10-31] MEDS ORDERED: Ibuprofen TAB* 600 MG PO PRN (17:41)
[2016-10-31] MEDS ORDERED: Magnesium Hydroxide LIQ* 30 ML UDC PO SCH (21:00)
[2016-11-01] MEDS: Levothyroxine TAB* 25 MCG TAB PO SCH (05:28)
--- NOTE | 2016-11-01 05:53 | DS ---
DISCHARGE SUMMARY: DATE OF ADMISSION: 10/29/16 DATE OF ANTICIPATED DISCHARGE: 11/01/16 DATE OF CURRENT DICTATION: 10/31/16 PRIMARY CARE PHYSICIAN: Tacho Horton MD DISCHARGE DIAGNOSES: 1. Status post fall with subsequent right trimalleolar ankle fracture. Status post ORIF by Dr. Shrestha on 10/30/16. 2. Chest pain and hypotension related to treatment with oxycodone in the emergency department that was most likely related to pain and narcotic medications and resolved. MEDICATIONS AT DISCHARGE: Include: 1. Acetaminophen 650 mg every 4 hours p.r.n. 2. Aspirin 325 mg daily. 3. Atenolol 25 mg a day. 4. Calcium carbonate 1 tablet daily. 5. Colace 100 mg b.i.d. 6. Folic acid 1 mg daily. 7. Hydrocodone/acetaminophen 5/325 mg 1 tablet every 4 hours p.r.n. 8. Synthroid 25 mcg daily. 9. Methotrexate 10 mg p.o. every Friday. 10. Pataday 0.2% one drop both eyes daily. 11. Simvastatin 20 mg daily. LABORATORY DATA DURING THE HOSPITAL STAY: Included: On 10/31/16: White blood cell count 9.5, hemoglobin 11.0, hematocrit 33, and platelets of 238. Sodium 136, potassium 4.0, chloride 102, carbon dioxide 28, BUN 13, and creatinine 0.59. CONSULTATIONS DURING THE HOSPITAL STAY: Included Dr. Shrestha from orthopedic surgery. HOSPITALIZATION COURSE: Yessi Paniagua is an 85-year-old female with a history of rheumatoid arthritis, hypertension, hyperlipidemia, and hypothyroidism who presented to the hospital on 10/29/16 complaining of right ankle pain after a mechanical fall. The patient was evaluated by Dr. Shrestha and was deemed to be a good candidate for ORIF of the right ankle that was performed on 10/30/15. Postoperatively, the patient did very well. Please also note that at admission, the patient was given oxycodone due to pain as well as narcotic medication, she developed chest pain and hypotension. That resolved after further treatment of her pain with Dilaudid and IV fluids resuscitation. Subsequent evaluation on telemetry monitored bed failed to demonstrate any arrhythmias. The patient also had negative troponins throughout her hospital stay and the pain did not recur. The patient is planned for [place] [facility] [place]. As per Dr. Shrestha, the ambulation was recommended as 10% toe-touch on the right only. The patient is recommended to follow up with Dr. Shrestha in approximately 4 to 7 days. Please note that this is a short summary of the patient's hospital stay, please refer to further medical records for details. TIME SPENT: Approximately 35 minutes was spent on the patient's discharge. CC: Dr. Horton; Dr. Shrestha; DOMENIC Kohli* [id number]/[facility] #: [id number] [facility]
[2016-11-01 07:41] VITALS: BP 151/51
[2016-11-01] MEDS: Heparin VIAL(*) 5000 UNITS/ML VIAL (FIVE THOUSAND) SUBCUT SCH (08:24)
[2016-11-01] MEDS: Aspirin TAB* 325 MG PO SCH (08:25)
[2016-11-01] MEDS: Atorvastatin* 10 MG TAB PO SCH (08:25)
[2016-11-01] MEDS: Atenolol TAB* 25 MG PO SCH (08:25)
[2016-11-01] MEDS: Folic Acid TAB* 1 MG PO SCH (08:25)
[2016-11-01] MEDS: Docusate CAP* 100 MG PO SCH (08:25)
[2016-11-01] MEDS: HYDROcodone/ACETAMIN 5-325 MG* 1 TAB PO PRN (08:25)
--- NOTE | 2016-11-01 08:36 | PN ---
Progress Note - Progress Note SOAP: Subjective: POD #2 right ankle ORIF. States that it has been very painful, but medication helping. Denies CP/SOB. Objective: Vital Signs: Temp Pulse Resp BP Pulse Ox 97.7 F 68 14 151/51 96 / 07:29 / 07:29 11/01/16 08:25 11/01/16 07:29 11/01/16 07:29 Gen: A & Ox3, NAD at rest RLE: Splint C/D/I, +f/e at MTPs, N/V intact Assessment: POD #2 right ankle ORIF Plan: Cont. NWB RLE with walker and assist Pt to be d/c'd to SNF today. F/u with orthopedics 10-14 days
[2016-11-01] MEDS: Olopatadine 0.2% (NF) 1 DROP BTL BOTH EYES SCH (11:02)
== END 2016-11-01 11:25 | DRG 494 ==
LOC: ED 10:50 → MEDTELE 16:18 → SSU 10-30 21:55
PROVIDERS: ADMIT Internal Medicine; ATTEND Internal Medicine
PROC: 0QSJ04Z Reposition Right Fibula with Internal Fixation Device, Open Approach (ICD-10-PCS; 2016-10-30)
PROC: 0QSG04Z Reposition Right Tibia with Internal Fixation Device, Open Approach (ICD-10-PCS; principal; 2016-10-30 17:15)
DX: S82.851A Displaced trimalleolar fracture of right lower leg, initial encounter for closed fracture (principal); M06.9 Rheumatoid arthritis, unspecified; I10 Essential (primary) hypertension; I95.2 Hypotension due to drugs; H26.9 Unspecified cataract; E78.5 Hyperlipidemia, unspecified; E03.9 Hypothyroidism, unspecified; Z96.653 Presence of artificial knee joint, bilateral; T40.2X5A Adverse effect of other opioids, initial encounter; W18.09XA Striking against other object with subsequent fall, initial encounter; R07.89 Other chest pain; Z88.0 Allergy status to penicillin; Z87.01 Personal history of pneumonia (recurrent); Z97.4 Presence of external hearing-aid; Z85.118 Personal history of other malignant neoplasm of bronchus and lung; Z87.891 Personal history of nicotine dependence; Y92.009 Unspecified place in unspecified non-institutional (private) residence as the place of occurrence of the external cause; Z79.82 Long term (current) use of aspirin
CPT/HCPCS: 36415; 71010; 76000; 80048; 80053; 82550; 82553; 83605; 83735; 83874; 83880; 84443; 84484; 85025; 85027; 85610; 85730; 93005; 96360; 99284; A9270-GY; C1713; C1776; J0690; J1170; J1644; J1650; J1885; J2405; J2704; J3010

== ENCOUNTER 2016-11-04 20:06 | Inpatient (IN) | payer MEDICARE ==
[2016-11-04] MEDS ORDERED: Ondansetron INJ* 2 MG/ML VIAL IV ONE (20:21)
[2016-11-04] MEDS ORDERED: NS 0.9% 1000 ML* 1,000 ML IV ONE (20:21)
[2016-11-04 21:13] LABS: Albumin 3.4 g/dL (3.2-5.2); BUN/Creatinine Ratio 32.3 (8-20); C Reactive Protein 91.54 mg/L (< 5.00); Calcium 9.5 mg/dL (8.6-10.3); EGFR African American 117.7 (>60); EGFR Non-African American 91.5 (>60); Globulin 2.9 g/dL (2-4); Magnesium 1.5 mg/dL (1.9-2.7); Total Bilirubin 0.5 mg/dL (0.2-1.0); Total Protein 6.3 g/dL (6.4-8.9)
[2016-11-04] MEDS ORDERED: Acetaminophen TAB* 325 MG PO ONE (21:16)
[2016-11-04 21:19] LABS: Hematocrit 34 % (35-47); Hemoglobin 11.3 g/dl (12.0-16.0); Mean Corpuscular HGB Conc 33 g/dl (31-36); Mean Corpuscular Hemoglobin 32 pg (27-31); Mean Corpuscular Volume 95 fL (80-97); Mean Platelet Volume 8 um3 (7.4-10.4); Red Blood Count 3.56 10^6/ul (4.0-5.4); Red Cell Distribution Width 15 % (10.5-15); White Blood Count 15.4 10^3/ul (3.5-10.8)
--- NOTE | 2016-11-04 21:45 | ED ---
Luz Clemons Rebecca, scribed for Juancho Bourgeois MD on 11/04/16 at 2025 . Complex/Multi-Sys Presentation - HPI Summary HPI Summary: Pt is an 86 y/o F BIBA who presents to ED c/o N/V/D. Did not feel well upon waking up this morning at 0800 and last ate last night [facility] facility. Pt reports that she has vomited 6x and had 4 bouts of diarrhea today. Sx aggravated and alleviated by nothing. Additionally c/o dizziness and abd pain. Pain is located diffusely without radiation. Sx characterized as dull and mild, ranked 2/10, and have been constant since onset. Denies fever. Allergy to Penicillins. - History Of Current Complaint Time Seen by Provider: 11/04/16 20:14 Hx Obtained From: Patient Onset/Duration: Sudden Onset Severity Currently: Mild Severity Initially: Mild Location: Pain At: - diffuse abd pain Character: Dull Aggravating Factor(s): Nothing Alleviating Factor(s): Nothing Associated Signs And Symptoms: Positive: Dizziness, Nausea, Vomiting, Diarrhea. Negative: Fever - Allergies/Home Medications Allergies/Adverse Reactions: Allergies Allergy/AdvReac Type Severity Reaction Status Date / Time Penicillins Allergy Unknown Unknown Verified 11/04/16 21:14 Reaction Details PMH/Surg Hx/FS Hx/Imm Hx Endocrine/Hematology History: Reports: Hx Thyroid Disease - hypothyroidism Denies: Hx Diabetes Cardiovascular History: Reports: Hx Hypertension, Hx Syncope, Other Cardiovascular Problems/Disorders - hyperlipidemia Denies: Hx Congestive Heart Failure, Hx Pacemaker/ICD Respiratory History: Reports: Hx Lung Cancer, Hx Pneumonia - 16 yrs ago., Hx Seasonal Allergies Denies: Hx Asthma, Hx Chronic Obstructive Pulmonary Disease (COPD) GI History: Reports: Hx Diverticulosis, Other GI Disorders - DIVERTICULOSIS Denies: Hx Ulcer History: Denies: Hx Dialysis, Hx Renal Disease Musculoskeletal History: Reports: Other Musculoskeletal History - RA Denies: Hx Back Problems, Hx Osteoporosis Sensory History: Reports: Hx Cataracts - removed, Hx Contacts or Glasses, Hx Hearing Aid Opthamlomology History: Reports: Hx Cataracts - removed, Hx Contacts or Glasses Neurological History: Denies: Hx Dementia, Hx Seizures Psychiatric History: Denies: Hx Panic Disorder - Cancer History Cancer Type, Location and Year: lung cancer two years ago, small, removed, no chemo - Surgical History Surgery Procedure, Year, and Place: BILATERAL KNEE REPLACEMENT, CHOLECYSTECTOMY , APPENDECTOMY, RIGHT PARTIAL PNEUMONECTOMY Infectious Disease History: No Infectious Disease History: Denies: Hx Hepatitis, Hx Human Immunodeficiency Virus (HIV), Traveled Outside the [place] in Last 30 Days - Family History Known Family History: Positive: Hypertension - Social History Lives: Assisted Living Alcohol Use: Daily Alcohol Amount: 1 glass of wine per day Hx Substance Use: No Substance Use Type: Reports: None Smoking Status (MU): Former Smoker Amount Used/How Often: quit smoking over 25 yrs ago. Have You Smoked in the Last Year: No Review of Systems Negative: Fever Positive: Vomiting, Diarrhea, Nausea Neurological: Other - Dizziness All Other Systems Reviewed And Are Negative: Yes Physical Exam Triage Information Reviewed: Yes Vital Signs On Initial Exam: Initial Vitals Temp Pulse Resp BP Pulse Ox 100.6 F 93 14 147/52 95 11/04/16 21:00 11/04/16 21:00 11/04/16 21:00 11/04/16 21:00 11/04/16 21:00 Vital Signs Reviewed: Yes Appearance: Positive: No Pain Distress, Thin Skin: Positive: Warm Eyes: Positive: MARIA E ENT: Positive: Hearing grossly normal Neck: Positive: Supple Respiratory/Lung Sounds: Positive: Clear to Auscultation, Breath Sounds Present Cardiovascular: Positive: Normal Abdomen Description: Positive: Nontender, No Organomegaly, Soft Bowel Sounds: Positive: Present Musculoskeletal: Positive: Strength/ROM Intact Neurological: Positive: Sensory/Motor Intact, Alert, Oriented to Person Place, Time Psychiatric: Positive: Affect/Mood Appropriate Diagnostics - Vital Signs Vital Signs Temp Pulse Resp BP Pulse Ox 11/04/16 21:00 100.6 F 93 14 147/52 95 - Laboratory Lab Results: Lab Results 11/04/16 11/04/16 11/04/16 Range/Units 20:50 20:50 20:50 WBC 15.4 H (3.5-10.8) 10^3/ul RBC 3.56 L (4.0-5.4) 10^6/ul Hgb 11.3 L (12.0-16.0) g/dl Hct 34 L (35-47) % MCV 95 (80-97) fL MCH 32 H (27-31) pg MCHC 33 (31-36) g/dl RDW 15 (10.5-15) % Plt Count 379 (150-450) 10^3/ul MPV 8 (7.4-10.4) um3 Neut % (Auto) 90.5 H (38-83) % Lymph % (Auto) 4.0 L (25-47) % [place] % (Auto) 5.1 (1-9) % Eos % (Auto) 0 (0-6) % Baso % (Auto) 0.4 (0-2) % Absolute Neuts (auto) 13.9 H (1.5-7.7) 10^3/ul Absolute Lymphs (auto) 0.6 L (1.0-4.8) 10^3/ul Absolute Monos (auto) 0.8 (0-0.8) 10^3/ul Absolute Eos (auto) 0 (0-0.6) 10^3/ul Absolute Basos (auto) 0.1 (0-0.2) 10^3/ul Absolute Nucleated RBC 0 10^3/ul Nucleated RBC % 0 Sodium 133 (133-145) mmol/L Potassium 4.0 (3.5-5.0) mmol/L Chloride 98 L (101-111) mmol/L Carbon Dioxide 27 (22-32) mmol/L Anion Gap 8 (2-11) mmol/L BUN 20 (6-24) mg/dL Creatinine 0.62 (0.51-0.95) mg/dL Est GFR ( Amer) 117.7 (>60) Est GFR (Non-Af Amer) 91.5 (>60) BUN/Creatinine Ratio 32.3 H (8-20) Glucose 144 H (70-100) mg/dL Lactic Acid 0.7 (0.5-2.0) mmol/L Calcium 9.5 (8.6-10.3) mg/dL Magnesium 1.5 L (1.9-2.7) mg/dL Total Bilirubin 0.50 (0.2-1.0) mg/dL AST 25 (13-39) U/L ALT 16 (7-52) U/L Alkaline Phosphatase 78 (34-104) U/L C-Reactive Protein 91.54 H (< 5.00) mg/L Total Protein 6.3 L (6.4-8.9) g/dL Albumin 3.4 (3.2-5.2) g/dL Globulin 2.9 (2-4) g/dL Albumin/Globulin Ratio 1.2 (1-3) Lipase 10 L (11.0-82.0) U/L Result Diagrams: 11/04/16 20:50 11/04/16 20:50 Lab Statement: Any lab studies that have been ordered have been reviewed, and results considered in the medical decision making process. Re-Evaluation - Re-Evaluation First Eval Re-Evaluation Time: 22:32 Change: Improved Comment: Pt is feeling better, no more nausea or diarrhea. Family wishes to have pt admitted Complex Multi-Symp Course/Dx Assessment/Plan: Pt is an 86 y/o F BIBA who presents to ED c/o N/V/D, dizziness and abd pain for 14 hours. Denies fever. expressed concern and stated that he would like pt to be admitted. Discussed care of pt with Dr. Cohen who agrees to admit pt. Pt will be admitted. - Diagnoses Provider Diagnoses: Gastroenteritis - Physician Notifications Discussed Care Of Patient With: Dr. Cohen, hospitalist, who agrees to admit pt. Time Discussed With Above Provider: 22:37 Instructed by Provider To: Admit As Observation Discharge - Discharge Plan Condition: Good Disposition: ADMITTED TO [facility] The documentation as recorded by the Luz nelson Rebecca accurately reflects the service I personally performed and the decisions made by me, Juancho Bourgeois MD.
--- NOTE | 2016-11-04 22:43 | HP ---
H&P (Free Text) History and Physical: PCP: Florecita Vergara NP Date/Time of Evaluation: 11/04/2016 2240 CC: N/V/D HPI: Mrs Paniagua is an 86YO female admitted to [facility] 10/29 - 11/01/2016 during which she had an ORIF trimaleolar R ankle FX repair via Dr Shrestha. She presents tonight from [facility] inpatient rehab with onset this AM of N/V/D. She also relates BUE pain of uncertain etiology. She denies chest pain, SOB, sweats, subjective F/C, black or bloody emesis or diarrhea, focal W/N/T, change in speech/swallow, or other issues. She was given a single 4mg dose of ondansetron & 1L NS in the ED with resolution of her N/V. She is very pleasant, speaking in whole sentences with no objective pain. Despite this her daughter insists that she is in "horrible pain" and needs "something to help her sleep". PMedHx, PSurgHx, SocHx, & FamHx: reviewed and unchanged compared to 10/29/2016 Allergies Penicillins Allergy (Unknown, Verified 11/04/16 21:14) Unknown Reaction Details Ambulatory Orders Levothyroxine TAB* [Synthroid 25 MCG TAB*] 25 mcg PO DAILY 11/24/15 Atenolol TAB* [Tenormin TAB* 25 MG] 25 mg PO DAILY 10/29/16 Calcium Carbonate-Cholecalcife [Calcium 600 + D 600-200 mg-Unit] 1 tab PO DAILY 10/29/16 Folic Acid TAB* [Folvite TAB*] 1 mg PO DAILY 10/29/16 Methotrexate TAB* 10 mg PO MO 10/29/16 Olopatadine 0.2% (NF) [Pataday 0.2% (NF)] 1 drop BOTH EYES DAILY 10/29/16 Simvastatin TAB(NF) [Zocor 20 MG (NF)] 20 mg PO DAILY 10/29/16 Acetaminophen TAB* [Tylenol TAB*] 650 mg PO Q4H PRN #0 tab 10/31/16 Aspirin TAB* 325 mg PO DAILY tab 10/31/16 Docusate CAP* [Colace Cap*] 100 mg PO BID cap 10/31/16 HYDROcodone/ACETAMIN 5-325 MG* [[place] 5-325 TAB*] 1 tab PO Q4H PRN #0 tab MDD 6 tabs 10/31/16 ROS: as above, otherwise reviewed and all were negative Constitutional: NAD, normally developed, well-nourished elderly white female vitals: Vital Signs Temp 38.1 C 11/04/16 21:00 Pulse 93 11/04/16 21:00 Resp 14 11/04/16 21:00 BP 147/52 11/04/16 21:00 Pulse Ox 95 11/04/16 21:00 Intake & Output 11/03/16 11/04/16 11/04/16 23:59 11:59 23:59 Intake Total 2003 Balance 2003 Weight 122 lb Intake: IV Fluids 1002 IVPB 1002 HEENM: atraumatic; sclera/conjunctiva: non-icteric/clear; blephara: normal; hearing: clinically intact; oropharynx: clear, mucosa moist Neck: soft tissue: non-tender; thyroid: normal Pulmonary: clear to auscultation bilaterally, good aeration, no accessory muscle use CV: RR/RR, normal S1S2, no carotid bruit, no jugular venous distention, 2+ B DP/ PT, no edema Abdominal: soft, non-distended, non-tender, no rebound/guarding/rigidity, normoactive bowel sounds, no hepatosplenomegaly or masses, no costovertebral angle tenderness Musculoskeletal: general: RLE dressing clean and dry Integumental: normal appearance and texture Psychiatric orientation: AA&O to PPS affect: calm mood: cooperative eye contact: good content: reliable responses: timely insight: fair Testing: Lab Results 11/04/16 11/04/16 11/04/16 Range/Units 20:50 20:50 20:50 WBC 15.4 H (3.5-10.8) 10^3/ul RBC 3.56 L (4.0-5.4) 10^6/ul Hgb 11.3 L (12.0-16.0) g/dl Hct 34 L (35-47) % MCV 95 (80-97) fL MCH 32 H (27-31) pg MCHC 33 (31-36) g/dl RDW 15 (10.5-15) % Plt Count 379 (150-450) 10^3/ul MPV 8 (7.4-10.4) um3 Neut % (Auto) 90.5 H (38-83) % Lymph % (Auto) 4.0 L (25-47) % [place] % (Auto) 5.1 (1-9) % Eos % (Auto) 0 (0-6) % Baso % (Auto) 0.4 (0-2) % Absolute Neuts (auto) 13.9 H (1.5-7.7) 10^3/ul Absolute Lymphs (auto) 0.6 L (1.0-4.8) 10^3/ul Absolute Monos (auto) 0.8 (0-0.8) 10^3/ul Absolute Eos (auto) 0 (0-0.6) 10^3/ul Absolute Basos (auto) 0.1 (0-0.2) 10^3/ul Absolute Nucleated RBC 0 10^3/ul Nucleated RBC % 0 Sodium 133 (133-145) mmol/L Potassium 4.0 (3.5-5.0) mmol/L Chloride 98 L (101-111) mmol/L Carbon Dioxide 27 (22-32) mmol/L Anion Gap 8 (2-11) mmol/L BUN 20 (6-24) mg/dL Creatinine 0.62 (0.51-0.95) mg/dL Est GFR ( Amer) 117.7 (>60) Est GFR (Non-Af Amer) 91.5 (>60) BUN/Creatinine Ratio 32.3 H (8-20) Glucose 144 H (70-100) mg/dL Lactic Acid 0.7 (0.5-2.0) mmol/L Calcium 9.5 (8.6-10.3) mg/dL Magnesium 1.5 L (1.9-2.7) mg/dL Total Bilirubin 0.50 (0.2-1.0) mg/dL AST 25 (13-39) U/L ALT 16 (7-52) U/L Alkaline Phosphatase 78 (34-104) U/L C-Reactive Protein 91.54 H (< 5.00) mg/L Total Protein 6.3 L (6.4-8.9) g/dL Albumin 3.4 (3.2-5.2) g/dL Globulin 2.9 (2-4) g/dL Albumin/Globulin Ratio 1.2 (1-3) Lipase 10 L (11.0-82.0) U/L 2vCXR: ordered, pending Impression: 86F presenting with acute N/V/D DIAGNOSIS & PLAN Primary N/V/D, suspect viral acute gastroenteritis : obtain UA & 2vCXR : IVFs : anti-emetics PRN : recheck labs in AM : supplemental care Secondary HTN : continue atenolol HLD : continue simvastatin rheumatoid arthritis : pain control hypothyroidism : continue levothyroxine Admission Rational: observation for acute gastroenteritis DVTp: SCDs & heparin SQ Code Status: full HCP:
[2016-11-04] MEDS ORDERED: Melatonin (NF) 3 MG TAB PO PRN (22:45)
[2016-11-04] MEDS ORDERED: NS 0.9% 1000 ML* 1,000 ML IV SCH (22:45)
[2016-11-04] MEDS ORDERED: Ondansetron INJ* 2 MG/ML VIAL IV PRN (22:45)
[2016-11-04] MEDS: traMADol TAB* 50 MG PO PRN (23:55)
[2016-11-05] MEDS ORDERED: Magnesium Sulfate IV* 3 GM in NS 0.9% 100 ML* 100 ML IVPB ONE (00:05)
[2016-11-05 00:28] LABS: Urine Bacteria Absent (Absent); Urine Bilirubin Negative (Negative); Urine Glucose Negative (Negative); Urine Nitrite Negative (Negative)
[2016-11-05] MEDS: Heparin VIAL(*) 5000 UNITS/ML VIAL (FIVE THOUSAND) SUBCUT SCH ×3 (06:27→20:14)
[2016-11-05] MEDS: Levothyroxine TAB* 25 MCG TAB PO SCH (06:27)
[2016-11-05] MEDS: traMADol TAB* 50 MG PO PRN (06:31)
--- NOTE | 2016-11-05 07:37 | RAD ---
HISTORY: Fever, nausea vomiting, recent hospitalization COMPARISONS: October 29, 2016 VIEWS: 2: Frontal dual-energy and lateral views of the chest. FINDINGS: CARDIOMEDIASTINAL SILHOUETTE: The cardiomediastinal silhouette is normal. EMMANUEL: The emmanuel are normal. PLEURA: The costophrenic angles are sharp. No pleural abnormalities are noted. LUNG PARENCHYMA: There is hyperinflation ABDOMEN: The upper abdomen is clear. There is no subphrenic gas. BONES AND SOFT TISSUES: Degenerative changes are noted OTHER: None. IMPRESSION: HYPERINFLATION. NO ACTIVE CARDIOPULMONARY DISEASE.
[2016-11-05 08:45] LABS: Hematocrit 30 % (35-47); Mean Corpuscular HGB Conc 34 g/dl (31-36); Mean Corpuscular Hemoglobin 32 pg (27-31); Mean Corpuscular Volume 96 fL (80-97); Mean Platelet Volume 8 um3 (7.4-10.4); Red Blood Count 3.13 10^6/ul (4.0-5.4); Red Cell Distribution Width 15 % (10.5-15); White Blood Count 16.6 10^3/ul (3.5-10.8)
[2016-11-05 08:59] LABS: BUN/Creatinine Ratio 29.2 (8-20); Calcium 8.6 mg/dL (8.6-10.3); EGFR African American 111.4 (>60); EGFR Non-African American 86.6 (>60); Magnesium 2.4 mg/dL (1.9-2.7); Potassium 3.9 mmol/L (3.5-5.0)
[2016-11-05] MEDS ORDERED: Docusate CAP* 100 MG PO SCH (09:00)
[2016-11-05] MEDS: Aspirin TAB* 325 MG PO SCH (09:03)
[2016-11-05] MEDS: Atorvastatin* 10 MG TAB PO SCH (09:03)
[2016-11-05] MEDS: Atenolol TAB* 25 MG PO SCH (09:04)
[2016-11-05] MEDS: Pantoprazole IV* 40 MG IV SCH (09:04)
[2016-11-05] MEDS: Acetaminophen TAB* 325 MG PO PRN ×2 (13:39→20:13)
--- NOTE | 2016-11-05 14:09 | PN ---
Subjective Date of Service: 11/05/16 Interval History: HOSPITALIST PROGRESS NOTE Patient seen and examined at bedside. She feels better today. No further episodes of N/V/D, tolerated meals well so far. Major complaint is shoulder pain. Pain started 4 days ago when she started training for wheelchair use and was described as severe yesterday. Today right shoulder feels much improved, but left still has considerable pain. Family History: Unchanged from Admission Social History: Unchanged from Admission Past Medical History: Unchanged from Admission Objective Active Medications: Acetaminophen (Tylenol Tab*) 650 mg PO Q6H PRN PRN Reason: FEVER/PAIN Last Admin: 11/05/16 13:39 Dose: 650 mg Aspirin (Aspirin Tab*) 325 mg PO DAILY [facility] Last Admin: 11/05/16 09:03 Dose: 325 mg Atenolol (Tenormin Tab*) 25 mg PO DAILY [facility] Last Admin: 11/05/16 09:04 Dose: 25 mg Atorvastatin Calcium (Lipitor*) 10 mg PO DAILY [facility] Last Admin: 11/05/16 09:03 Dose: 10 mg Docusate Sodium (Colace Cap*) 200 mg PO BID [facility] Heparin Sodium (Porcine) (Heparin Vial(*)) 5,000 units SUBCUT Q8HR [facility] Last Admin: 11/05/16 13:39 Dose: 5,000 units Levothyroxine Sodium (Synthroid Tab*) 25 mcg PO DAILY@0600 [facility] Last Admin: 11/05/16 06:27 Dose: 25 mcg Melatonin (Melatonin (Nf)) 3 mg PO BEDTIME PRN; Protocol PRN Reason: Sleep Ondansetron HCl (Zofran Inj*) 4 mg IV Q6H PRN PRN Reason: NAUSEA Pantoprazole Sodium (Protonix Iv*) 40 mg IV DAILY [facility] Last Admin: 11/05/16 09:04 Dose: 40 mg Tramadol HCl (Ultram*) 50 mg PO Q6H PRN PRN Reason: PAIN Last Admin: 11/05/16 06:31 Dose: 50 mg Vital Signs 11/05/16 11:20 Temperature 97.8 F Pulse Rate 65 Respiratory 16 Rate Blood Pressure 111/36 (mmHg) O2 Sat by Pulse 97 Oximetry Oxygen Devices in Use Now: None Appearance: Pleasant elderly lady sitting up in bed in NAD. Eyes: No Scleral Icterus Ears/Nose/Mouth/Throat: Mucous Membranes Moist Neck: Trachea Midline Respiratory: Symmetrical Chest Expansion and Respiratory Effort, Clear to Auscultation Cardiovascular: RRR - Normal S1 and S2 Abdominal: NL Sounds; No Tenderness; No Distention Extremities: - - Right foot immobilized. Right shoulder has limited ROM and crepitations, but no significant tenderness. Left shoulder has pain on palpation of biceps tendon and ROM severely limited due to significant pain. Neurological: Alert and Oriented x 3, NL Muscle Strength and Tone Lines/Tubes/Other Access: Clean, Dry and Intact Peripheral IV Nutrition: Taking PO's Result Diagrams: 11/05/16 08:15 11/05/16 08:15 Assess/Plan/Problems-Billing Assessment: Mrs. Paniagua is an 86yo F with PMH of HTN, HLD, hypothyroidism, RA, recent admission for ORIF of right ankle fracture, currently at [facility] for rehab , who presented to ED with c/o N/V/D, likely secondary to viral gastroenteritis. - Patient Problems (1) Sepsis Comment: - Met sepsis criteria on admission with fever and leukocytosis. - Source is viral gastroenteritis. (2) Viral gastroenteritis Comment: - Appears to be resolved. - Tolerating diet well, with no further symptoms. (3) Shoulder pain Comment: - Although physicial examination was limited due to severe pain, suspect left biceps tendonitis in the setting of recent wheelchair exercises. - Will check plain films and request Ortho consult (Dr. Odonnell called). - Continue pain management with Acetaminophen, if need will add Ibuprofen. Patient feels Tramadol doesn't work well and has severe N/V with oxycodone. (4) HTN (hypertension) Comment: - Continue Atenolol. (5) HLD (hyperlipidemia) Comment: - Continue statin. (6) Hypothyroid Comment: - Continue levothyroxine. (7) DVT prophylaxis Comment: - SQ heparin. (8) Full code status Status and Disposition: Inpatient.
[2016-11-05 14:33] LABS: Erythrocyte Sed Rate 85 mm/Hr (0-40)
--- NOTE | 2016-11-05 14:59 | RAD ---
INDICATION: Bilateral shoulder pain. TECHNIQUE: 3 views of both shoulders were obtained. FINDINGS: The bones are osteopenic. No acute fracture is seen. There is a probable old ununited fracture of the distal left clavicle which is not well seen on this study. There is loss of space between the tops of the humeral heads and acromion processes consistent with bilateral rotator cuff tears. There is moderate osteoarthritic change in the right glenohumeral joint space and severe osteoarthritic change in the left glenohumeral joint space. IMPRESSION: 1. MODERATE TO SEVERE BILATERAL OSTEOARTHRITIC CHANGE LEFT GREATER THAN RIGHT. 2. DECREASED SPACE BETWEEN THE TOP OF THE HUMERAL HEADS AND ACROMION PROCESSES CONSISTENT WITH BILATERAL ROTATOR CUFF TEARS. 3. PROBABLE UNUNITED FRACTURE OF THE DISTAL LEFT CLAVICLE WHICH IS NOT WELL DEMONSTRATED ON THIS STUDY.
[2016-11-05] MEDS ORDERED: methylPREDNISolone ACETATE 40* 40 MG/ML 1 ML VIAL INTRAARTIC ONE (17:58)
[2016-11-05] MEDS: Docusate CAP* 100 MG PO SCH (20:16)
[2016-11-05 20:47] LABS: Body Fluid Appearance Cloudy
[2016-11-05 21:05] LABS: Body Fluid WBC 193383 /mcL
[2016-11-05 21:10] LABS: Body Fluid Total Cells Counted 100
--- NOTE | 2016-11-05 22:13 | CONS ---
ORTHOPEDIC CONSULTATION NOTE: DATE OF CONSULT: 11/05/16 CHIEF COMPLAINT: Left shoulder pain. HISTORY OF PRESENT ILLNESS: Ms. Paniagua is an 86-year-old right-hand dominant female with rheumatoid arthritis and multiple medical comorbidities. She recently had right ankle ORIF with Dr. Shrestha on 10/30/16. She was discharged to [facility], but developed nausea, vomiting, and diarrhea on 11/04/16. The patient was brought back to [facility] and noted to meet sepsis criteria with leukocytosis and fever. She was noted to have likely viral gastroenteritis. I am consulted because yesterday the patient began to mobilize with physical therapy. She was using her shoulders and developed intense bilateral shoulder pain. Today, her right shoulder pain is resolved; however, she has swollen pain for left shoulder. The patient denies any recent trauma. She does have rheumatoid arthritis and chronic shoulder pain. She is unable to move the shoulder without extreme pain. PAST MEDICAL HISTORY: 1. Recent right ankle fracture with ORIF with Dr. Shrestha on 10/30/16. 2. Rheumatoid arthritis. 3. Hypertension. 4. Hyperlipidemia. 5. Hypothyroidism. PAST SURGICAL HISTORY: 1. Right ankle ORIF. 2. Cholecystectomy. 3. Total abdominal hysterectomy. 4. Bilateral knee replacements. CURRENT MEDICATIONS: 1. Aspirin. 2. Simvastatin. 3. Folic acid. 4. Methotrexate. 5. Atenolol. 6. Acetaminophen. 7. Hydrocodone. 8. Folic acid. 9. Colace. 10. Calcium carbonate. 11. Synthroid. 12. . ALLERGIES: PENICILLIN. FAMILY HISTORY: Negative and noncontributory. SOCIAL HISTORY: The patient has recently been a resident of [facility] after her ankle fracture. She has been walking with a walker. She has chronic bilateral shoulder pain. REVIEW OF SYSTEMS: Positive for recent nausea, vomiting, diarrhea, fever, recent leukocytosis. Positive for bilateral shoulder pain, left greater than right. Positive for right ankle pain. Negative for chest pain, shortness of breath. Otherwise, review of systems is negative or not relevant. PHYSICAL EXAM: General: The patient is a well-nourished female, in no apparent distress. Alert and oriented x3. Pleasant mood and appropriate affect. She is in bed, having conversation with her daughter, eating dinner. HEENT: Atraumatic, normocephalic. Pupils are equal and reactive to light. Neck: Soft, nontender. No palpable adenopathy. Trachea midline. Heart: S1, S2. Lungs: No labored breathing. Abdomen: Soft, nontender, and nondistended. Left upper extremity: The patient's shoulder has a large effusion. No significant warmth or erythema. She cannot actively forward flex or abduct past 30 degrees. Passively, I cannot move for greater than 80 degrees without severe pain. Distally, 5/5 booking clerk strength. Full sensation to light touch in all nerve distributions and 2+ palpable radial pulse. She demonstrates thumbs up, okay and cross finger sign. She can move her elbow without pain. Vitals: Temperature 97.8, pulse 65, blood pressure 111/36. DIAGNOSTIC STUDIES/LAB DATA: Labs from today show white blood cell 16.6, hematocrit of 30, platelets 327. ESR 85. Sodium 133, potassium 3.9, chloride 100, BUN and creatinine 19 and 0.65. Her urinalysis from yesterday is negative. Radiographs of the patient's bilateral shoulders are reviewed on the PACS system. 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 No acute fractures noted. ASSESSMENT AND PLAN: Ms. Paniagua is an 86-year-old female recently admitted for nausea, vomiting, leukocytosis and fever, felt to be secondary to viral gastroenteritis. The patient has been mobilizing with physical therapy since she is recently recovering from right ankle ORIF with Dr. Shrestha on 10/30/16. I am consulted because the patient has an increase in her left shoulder pain today, which is quite severe associated with a large effusion. She does have radiographic changes consistent with chronic rotator cuff tear and arthritis. Because of her recent leukocytosis and fever, I will aspirate the shoulder and help exclude any infection. Once infection is excluded, I plan to inject the shoulder with 80 mg Depo-Medrol. The patient and her daughter agree with the treatment plan. They understand why the shoulder aspiration is necessary. She will continue weightbearing as tolerated on the left upper extremity. PROCEDURE NOTE: The left shoulder is prepped and draped. A pre-op time-out is performed with the nurse. Consent is signed by the patient. Under sterile conditions, the left shoulder is aspirated. I obtained 30 cc of cloudy yellow joint fluid. Decision is made to not inject any steroid at this time. The patient's shoulder is cleaned and a Band-Aid is placed over the aspiration site. I plan to take this left shoulder joint fluid to the lab immediately for Gram stain, cell count with differential, aerobic, anaerobic, mycobacterial and fungal cultures and sensitivities. I will see the patient tomorrow in followup. [id number]/[facility] #: [id number] [facility] PARTNERSRebeca
[2016-11-06] MEDS: Acetaminophen TAB* 325 MG PO PRN ×2 (01:41→08:00)
[2016-11-06] MEDS: Levothyroxine TAB* 25 MCG TAB PO SCH (05:19)
[2016-11-06] MEDS: Heparin VIAL(*) 5000 UNITS/ML VIAL (FIVE THOUSAND) SUBCUT SCH ×3 (05:20→21:38)
[2016-11-06 05:30] LABS: Hematocrit 29 % (35-47); Hemoglobin 9.8 g/dl (12.0-16.0); Mean Corpuscular HGB Conc 34 g/dl (31-36); Mean Corpuscular Hemoglobin 32 pg (27-31); Mean Corpuscular Volume 95 fL (80-97); Mean Platelet Volume 8 um3 (7.4-10.4); Red Blood Count 3.07 10^6/ul (4.0-5.4); Red Cell Distribution Width 15 % (10.5-15); White Blood Count 11.1 10^3/ul (3.5-10.8)
[2016-11-06 05:45] LABS: BUN/Creatinine Ratio 33.9 (8-20); Calcium 9.4 mg/dL (8.6-10.3); EGFR African American 124.6 (>60); EGFR Non-African American 96.9 (>60); Potassium 4.1 mmol/L (3.5-5.0)
[2016-11-06] MEDS ORDERED: Vancomycin per Pharmacy* NOTE FOLLOW UP PRN (07:23)
[2016-11-06] MEDS ORDERED: Vancomycin(*) 1,000 MG in NS 0.9% 250 ML* 250 ML IVPB ONE (07:30)
[2016-11-06] MEDS: Aspirin TAB* 325 MG PO SCH (07:33)
--- NOTE | 2016-11-06 07:48 | PN ---
Progress Note - Progress Note SOAP: 11/05/16 L shoulder aspiration with >190,000 wbc. gram stain negative, cultures pending. D/w Dr. Johnson. L shoulder probable infection in setting of RA. Plan to make patient NPO. Pt. will be offered I and D of left shoulder. Dr. Enriquez or Dr. Batres, shoulder specialists will see pt today and proceed to OR for washout. []
[2016-11-06] MEDS: Docusate CAP* 100 MG PO SCH ×2 (07:51→22:02)
[2016-11-06] MEDS: cefTRIAXone VIAL(*) 1,000 MG in NS 0.9% 50 ML* 50 ML IVPB SCH (07:56)
[2016-11-06] MEDS: NS 0.9% 1000 ML* 1,000 ML IV SCH (07:56)
[2016-11-06] MEDS: Pantoprazole IV* 40 MG IV SCH (07:57)
[2016-11-06] MEDS: Atenolol TAB* 25 MG PO SCH (08:00)
[2016-11-06] MEDS: Atorvastatin* 10 MG TAB PO SCH (08:00)
--- NOTE | 2016-11-06 08:18 | PN ---
Subjective Date of Service: 11/06/16 Interval History: HOSPITALIST PROGRESS NOTE Patient seen and examined at bedside. N/V/D are resolved. Major complaint at this time is left shoulder pain. Was able to sleep last night, but had to get up multiple times to urinate. Family History: Unchanged from Admission Social History: Unchanged from Admission Past Medical History: Unchanged from Admission Objective Active Medications: Acetaminophen (Tylenol Tab*) 650 mg PO Q6H PRN PRN Reason: FEVER/PAIN Last Admin: 11/06/16 08:00 Dose: 650 mg Aspirin (Aspirin Tab*) 325 mg PO DAILY [facility] Last Admin: 11/06/16 07:33 Dose: Not Given Atenolol (Tenormin Tab*) 25 mg PO DAILY [facility] Last Admin: 11/06/16 08:00 Dose: 25 mg Atorvastatin Calcium (Lipitor*) 10 mg PO DAILY [facility] Last Admin: 11/06/16 08:00 Dose: 10 mg Docusate Sodium (Colace Cap*) 200 mg PO BID [facility] Last Admin: 11/06/16 07:51 Dose: Not Given Heparin Sodium (Porcine) (Heparin Vial(*)) 5,000 units SUBCUT Q8HR [facility] Last Admin: 11/06/16 05:20 Dose: 5,000 units Ceftriaxone Sodium 1,000 mg/ (Sodium Chloride) 50 mls @ 200 mls/hr IVPB Q24H [facility] Last Admin: 11/06/16 07:56 Dose: 200 mls/hr Vancomycin HCl 1,000 mg/ (Sodium Chloride) 250 mls @ 166.667 mls/hr IVPB ONCE ONE PRN Reason: Protocol Stop: 11/06/16 08:59 Sodium Chloride (Ns 0.9% 1000 Ml*) 1,000 mls @ 75 mls/hr IV PER RATE [facility] Last Admin: 11/06/16 07:56 Dose: 75 mls/hr Levothyroxine Sodium (Synthroid Tab*) 25 mcg PO DAILY@0600 [facility] Last Admin: 11/06/16 05:19 Dose: 25 mcg Melatonin (Melatonin (Nf)) 3 mg PO BEDTIME PRN; Protocol PRN Reason: Sleep Ondansetron HCl (Zofran Inj*) 4 mg IV Q6H PRN PRN Reason: NAUSEA Pantoprazole Sodium (Protonix Iv*) 40 mg IV DAILY [facility] Last Admin: 11/06/16 07:57 Dose: 40 mg Pharmacy Consult (Vancomycin Per Pharmacy*) 1 note FOLLOW UP . PRN PRN Reason: PER PROTOCOL Tramadol HCl (Ultram*) 50 mg PO Q6H PRN PRN Reason: PAIN Last Admin: 11/05/16 06:31 Dose: 50 mg Vital Signs 11/05/16 11/05/16 11/06/16 22:06 23:56 01:06 Temperature 97.4 F Pulse Rate 80 81 Respiratory 16 16 18 Rate Blood Pressure 137/81 150/54 (mmHg) O2 Sat by Pulse 95 96 Oximetry Oxygen Devices in Use Now: None Appearance: Elderly lady lying in bed in NAD. Eyes: No Scleral Icterus Ears/Nose/Mouth/Throat: Mucous Membranes Moist Neck: Trachea Midline Respiratory: Symmetrical Chest Expansion and Respiratory Effort, Clear to Auscultation Cardiovascular: RRR - Normal S1 and S2 Abdominal: NL Sounds; No Tenderness; No Distention Extremities: - - Severe left shoulder ROM limitation with pain on minimal movement. Joint effusion, but no warmth or erythema. Multiple RA related deformities, especially on her hands. Neurological: Alert and Oriented x 3, NL Muscle Strength and Tone Lines/Tubes/Other Access: Clean, Dry and Intact Peripheral IV Nutrition: Taking PO's Result Diagrams: 11/06/16 05:07 11/06/16 05:07 Assess/Plan/Problems-Billing Assessment: Mrs. Paniagua is an 86yo F with PMH of HTN, HLD, hypothyroidism, RA, s/p bilateral TKR, recent admission for ORIF of right ankle fracture, currently at [facility] for rehab, who presented to ED with c/o N/V/D, likely secondary to viral gastroenteritis. - Patient Problems (1) Sepsis Comment: - Met sepsis criteria on admission with fever and leukocytosis. - Source is viral gastroenteritis and septic shoulder (although her leukocytosis is already trending down even before antibiotics). (2) Shoulder pain Comment: - Although physicial examination was limited due to severe pain, my initial suspicion was of left biceps tendonitis in the setting of recent wheelchair exercises, but patient has long standing RA on MTX and is at risk for infection. - Ortho consult appreciated - synovial fluid shows >190k cells 90% WBC suggestive of septic joint. - Start Vancomyin and Ceftriaxone empirically. - ID consult requested. - Plan for wash out later today. - Continue pain management with Acetaminophen, if need will add Ibuprofen. Patient feels Tramadol doesn't work well and has severe N/V with oxycodone. - EKG from 10/29 reviewed. RCRI is 0. Patient is optimized for proposed procedure. (3) Viral gastroenteritis Comment: - Appears to be resolved. - Tolerating diet well, with no further symptoms. (4) HTN (hypertension) Comment: - Continue Atenolol. (5) HLD (hyperlipidemia) Comment: - Continue statin. (6) Hypothyroid Comment: - Continue levothyroxine. (7) DVT prophylaxis Comment: - SQ heparin. (8) Full code status Status and Disposition: Inpatient. and daughter called ([phone]).
[2016-11-06 08:49] LABS: Urine Bacteria Absent (Absent); Urine Bilirubin Negative (Negative); Urine Glucose Negative (Negative); Urine Nitrite Negative (Negative)
[2016-11-06] MEDS ORDERED: Bupivacaine 0.25% EPI 200,000* 30 ML SDV ONE (13:06)
[2016-11-06] MEDS ORDERED: Sodium Citrate/Citric Acid* 15 ML UDC ONE (13:27)
--- NOTE | 2016-11-06 13:28 | ECHO ---
Patient: ARETHA WHITTEN [facility] Rec#: [id number] : 1930 Date: 11/06/2016 Age: 86y Height: 160 cm / 63.0 in Weight: 54.4 kg / 119.9 lbs Sex: F BSA: 1.56 Room#: 410 Admit Date#: 11/05/2016 Type: Inpatient Referring: Christin Morales MD Reading: Miriam Marvin MD Floor Covering Printer Assistant: Milla Madrigal Floor Covering Printer Assistant: Asha Patel RN RDCS CC: Jaqui Nayak MAKE UP ARTIST Transthoracic Echocardiogram Indication: Sepsis, Fever BP: 148/54 HR: 62 Rhythm: NSR with PVCs Findings History: HTN, HLD, RA, Hypothyroidism, recent ORIF right ankle fx, currently with possible septic left shoulder. Technical Comments: The study is technically limited due to poor acoustic windows. The study is technically limited due to poor parasternal windows. The study was technically limited due to the patient's inability to lay in the left lateral decubitus position. Completed at 1200. Left Ventricle: The left ventricular chamber size is normal. Mild concentric left ventricular hypertrophy is observed. Global left ventricular wall motion and contractility are within normal limits. There is normal left ventricular systolic function. The estimated ejection fraction is 60-65%. There is no consistent Doppler evidence of clinically significant diastolic dysfunction. Left Atrium: The left atrium is moderately dilated. Right Ventricle: The right ventricular cavity size is normal. The right ventricular global systolic function is mildly reduced. Right Atrium: The right atrium is mildly dilated. Aortic Valve: The aortic valve is trileaflet. The aortic valve leaflets are mildly thickened. There is no evidence of aortic regurgitation. There is no evidence of aortic stenosis. Mitral Valve: The mitral valve leaflets are mildly thickened. There is moderate mitral regurgitation. There is no evidence of mitral stenosis. Tricuspid Valve: The tricuspid valve leaflets are mildly thickened.mild buckling of the leaflets, mobile strand noted. There is mild to moderate tricuspid regurgitation. There is evidence of mild pulmonary hypertension. There is no tricuspid stenosis. Pulmonic Valve: The pulmonic valve appears normal. There is mild pulmonic regurgitation. There is no pulmonic stenosis. Pericardium: There is no significant pericardial effusion. Aorta: The ascending aorta is not well visualized. The aortic arch is not well visualized. There is no dilation of the aortic root. Pulmonary Artery: The main pulmonary artery appears normal. Venous: The inferior vena cava appears normal in size. There is a greater than 50% respiratory change in the inferior vena cava dimension. Conclusions The study was technically limited due to the patient's inability to lay in the left lateral decubitus position. Mild concentric left ventricular hypertrophy is observed. Global left ventricular wall motion and contractility are within normal limits. The estimated ejection fraction is 60-65%. There is no consistent Doppler evidence of clinically significant diastolic dysfunction. The right ventricular global systolic function is mildly reduced. The aortic valve leaflets are mildly thickened with good function. There is moderate mitral regurgitation. There is mild to moderate tricuspid regurgitation. The tricuspid valve leaflets are mildly thickened.mild buckling of the leaflets, mobile strand noted. No clear cut vegetations noted. Compared with prior echo of 12/19/13, LVEF is normal, RV hypokinesis is new, the degree of MR has increased from mild, TV strand seen previously, TR is stable. Measurements Name Value Normal Range RVDdMajor (2D) 3.2 cm (2.2 - 4.4) RAd ISD 4CH 5.4 cm (3.4 - 4.9) RA (A4C)W 3.7 cm (2.9 - 4.6) IVSd (2D) 1.2 cm (0.6 - 1) LVPWd (2D) 1.1 cm (0.6 - 1) LVIDd (2D) 5 cm (3.6 - 5.4) LVIDs (2D) 3.4 cm - LV FS (2D) 32 % (25 - 45) Aortic Annulus 2 cm (1.4 - 2.6) Ao root diameter (2D) 3.2 cm (2.1 - 3.5) Aortic arch 2.1 cm (1.8 - 3.4) LA dimension (AP) 2D 3.2 cm (2.3 - 3.8) LAd ISD 4CH 6.2 cm (2.9 - 5.3) LA ISD 4CH W 4.7 cm (2.5 - 4.5) Name Value Normal Range LA ESV SP 4CH (A/L) 79 ml - LA ESV SP 2CH (A/L) 63 ml - LA ESV BP (A/L) 74 ml - LA ESV BP (A/L) index 48 ml/m2 - LA ESV SP 4CH (MOD) 74 ml - LA ESV SP 2CH (MOD) 59 ml - Name Value Normal Range MV E-wave Vmax 0.74 m/sec - MV deceleration time 237 msec - MV A-wave Vmax 0.84 m/sec - MV E:A ratio 0.88 ratio - LV septal e' Vmax 0.07 m/sec - LV lateral e' Vmax 0.07 m/sec - LV E:e' septal ratio 10.6 ratio - LV E:e' lateral ratio 10.6 ratio - Name Value Normal Range AV Vmax 1.2 m/sec - AV VTI 28.6 cm - LVOT Vmax 0.7 m/sec - LVOT VTI 17.8 cm - Name Value Normal Range TR Vmax 3.1 m/sec - TR peak gradient 38 mmHg - RAP 3 mmHg - RVSP 41 mmHg - IVC diameter 1.7 cm - Name Value Normal Range PV Vmax 0.7 m/sec -
[2016-11-06] MEDS ORDERED: Ketorolac INJ* 30 MG/ML 1 ML VIAL IV PRN (13:43)
[2016-11-06] MEDS ORDERED: fentaNYL* 50 MCG/ML 2 ML VIAL (100 MCG VIAL) IV PRN (13:43)
[2016-11-06] MEDS ORDERED: Lidocaine 2% PF * 5 ML VIAL ONE (14:16)
[2016-11-06] MEDS ORDERED: fentaNYL* 50 MCG/ML 2 ML VIAL (100 MCG VIAL) ONE (14:16)
[2016-11-06] MEDS ORDERED: Succinylcholine* 20 MG/ML 10 ML VIAL ONE (14:16)
[2016-11-06] MEDS ORDERED: Propofol* 10 MG/ML 20 ML BTL IV PUSH ONE (14:16)
[2016-11-06] MEDS ORDERED: Bupivacaine 0.25% SDV* 30 ML ONE (15:14)
[2016-11-06 16:06] LABS: Hematocrit 29 % (35-47); Hemoglobin 9.8 g/dl (12.0-16.0)
[2016-11-06] MEDS: fentaNYL* 50 MCG/ML 2 ML VIAL (100 MCG VIAL) IV SLOW PU PRN ×2 (16:53→21:39)
--- NOTE | 2016-11-06 16:59 | CONS ---
CONSULTATION REPORT: DATE OF CONSULT: 11/06/16 REQUESTING PHYSICIAN: Dr. Webber. CONSULTING SERVICE: Infectious Disease. REASON FOR CONSULT: Left shoulder infection. IMPRESSION: 1. Left shoulder severe pain, cnqdeqvy-uw-ekkmc effusion, CRP of 90, aspiration of the joint showed 193,000 white cells, 90% polys, no crystals. Gram stain showed no organisms, the culture is pending. Overall, it is a septic left shoulder with possible underlying synovitis or rheumatoid arthritis as well. Usual organisms are staph and strep. Cultures are pending. Antibiotics were given before cultures were taken, so evaluation for endocarditis may be limited. She does have no peripheral stigmata of infective endocarditis and no murmur. 2. Rheumatoid arthritis, on methotrexate. 3. Recent right ankle open reduction internal fixation about 2 weeks ago. 4. PENICILLIN allergy caused rash. RECOMMENDATION: 1. Agree with vancomycin goal trough 15 to 20 and ceftriaxone. We will add blood cultures and check a transthoracic echocardiogram. Assuming that the echocardiogram does not show new or severe regurgitant valve lesion, she will have a long course of IV antibiotics to recover the septic joint so we do not need to pursue a transesophageal echocardiogram. 2. She will have a wash out of the left shoulder and more culture material at that point. HISTORY OF PRESENT ILLNESS: This is an 86-year-old woman with rheumatoid arthritis and recent right ankle fixation surgery, who was at [facility], doing rehab, when she was developed fever, bilateral shoulder pain that progressed, left shoulder got worse, the right shoulder has slowly gotten better while the left has continued to worsen. She was brought to the ER by her family. She was febrile. She was found to have shoulder pain, aspiration was obtained, fluid results as above. White blood cell count was 50 on arrival , is down to 11; CRP was 90. She denies pain anywhere else her including the right ankle is not bothering her. PAST MEDICAL HISTORY: 1. Hypertension. 2. Rheumatoid arthritis. 3. Hyperlipidemia. 4. Hypothyroidism. 5. Status post bilateral knee arthroplasties. 6. Status post cholecystectomy. 7. Status post total abdominal hysterectomy and bilateral salpingo- oophorectomy. MEDICATIONS: 1. Tylenol. 2. Aspirin. 3. Atenolol. 4. Lipitor. 5. Heparin subcutaneous injection. 6. Levothyroxine. 7. Melatonin. 8. Pantoprazole. 9. Ceftriaxone 1 g a day. 10. Vancomycin 1 g. 11. Methylprednisolone. 12. Tramadol. ALLERGIES: PENICILLIN caused rash. FAMILY HISTORY: No recurrent infections. SOCIAL HISTORY: She lives in [place], recently had been at [facility]. No sick contacts. REVIEW OF SYSTEMS: All negative except as noted above. PHYSICAL EXAM: Vital Signs: Temperature 36.3, heart rate 60, respiratory rate 16, blood pressure 148/54, and O2 sat 96% on room air. In general, she is awake and in no distress. Neurologically, she is oriented x3, follows all commands. HEENT: There is no conjunctival hemorrhage. Oropharynx without lesions. Neck is supple without nuchal rigidity. Lymph Nodes: There is no cervical, supraclavicular, inguinal, axillary, or epitrochlear lymphadenopathy. Heart: Regular rate and rhythm without murmurs, rubs, or gallops. Lungs: Clear to auscultation bilaterally. Abdomen: Soft, nontender, nondistended without hepatosplenomegaly. Skin: There is no rash or splinter hemorrhages. Musculoskeletal: The right shoulder is with small effusion, it is not warm, there is no tenderness. Left shoulder has aagteutd-eo-kyuoi effusion with warmth and some tenderness and decreased range of motion, flexion, and extension. Bilateral knees have no effusions. The right ankle still has the postoperative wrap on it. LABORATORY DATA: White blood cell count 11, hemoglobin 9, platelets 330. Creatinine is 0.6. CRP 91. CK 40. Please see impressions and recommendations outlined above, which I have discussed with Dr. Webber. Thanks for asking me to see Zulema Siva in consultation. [id number]/[facility] #: [id number] [facility] HOSPITALRebeca
[2016-11-06] MEDS: Vancomycin(*) 1,000 MG in NS 0.9% 250 ML* 250 ML IVPB SCH (20:21)
[2016-11-07] MEDS: fentaNYL* 50 MCG/ML 2 ML VIAL (100 MCG VIAL) IV SLOW PU PRN (01:30)
--- NOTE | 2016-11-07 05:44 | OP ---
DATE OF OPERATION: 11/06/16 - ROOM #410 DATE OF : 32 SURGEON: Jose Enriquez MD AREA FIELD WORKER: BIANCA Pollock. An web press operator assistant was needed for the entirety of the case to help with positioning, retraction, and closure. ANESTHESIOLOGIST: Dr. Bauer. ANESTHESIA: General. PRE-OP DIAGNOSIS: Left septic shoulder. POST-OP DIAGNOSIS: Left septic shoulder. OPERATIVE PROCEDURE: Left shoulder arthroscopic I and D with culture. COMPLICATIONS: None. ESTIMATED BLOOD LOSS: Minimal. INDICATIONS: Yessi is a very pleasant 86-year-old female who has a history of rheumatoid arthritis who had an open reduction internal fixation of her ankle approximately 1 week ago. She did well, but she started noticing progressive shoulder pain when she was at the rehab facility. Initially, it was thought that it was due to the wheelchair, but it got worse. She has a lot of pain with range of motion. She has severe arthritis of both shoulders. It has not responded to lot of effusion. It was aspirated and was found to have 190,000 white counts. Therefore, the decision was made to wash out her shoulder. Risks and benefits were discussed at length and included but are not limited to bleeding, infection, damage to nerves, vessels, and surrounding structures, wound not healing, need for further surgery, persisted pain, stiffness, worsening arthritis, and risks of anesthesia. She has elected to proceed. Prior to surgery, she had bloody bowel movement, but her vitals were stable. The medicine team was notified and the plan was to have this addressed after surgical treatment as this was an emergent type of surgery. DESCRIPTION OF PROCEDURE: The patient was greeted in the preoperative area by the attending surgeon. The correct extremity was marked and consent was confirmed. The patient was then brought back to the operating suite where she was placed in supine position on the operating table. She then underwent general anesthesia and endo-tracheal intubation, which she tolerated well after which she was placed in the right lateral decubitus position. The left shoulder was draped unsterilely with 10 pounds of traction. An axillary roll was placed as well as all bony prominences were padded. She was supported with a pegboard. The shoulder was prepped and draped in the usual standard fashion beginning with chlorhexidine soap and alcohol scrub and a final prep of ChloraPrep. After appropriate surgical pause indicating side, site, procedure, and administration of antibiotics, a standard postero-lateral portal was made sharply with a 11 blade. The scope was then introduced to the joint. There was abundant erythema. The rotator cuff was absent. Immediately after placing the scope in, there was a blush of cloudy sanguineous fluid. This was collected for Gram stain and culture after which, the shoulder joint was examined. There was a bit of glenohumeral changes to the joint and again the rotator cuff was absent. The anterior portal was then made in an outside-in fashion. Once it was established, cannula was placed and the shaver was placed. Then 10 L of sterile saline were then run through the joint with gentle turbulent flow to thoroughly irrigate the joint. No further areas of pus were identified. Once 10 L were lavaged through the joint, the scope was removed. All loose debris and fluid were removed from the joint. The portals were closed with 3-0 nylon. Sterile dressings were applied, Cryo/Cuff as well as a regular sling. She was awoken from anesthesia and transferred to the PACU in stable condition. POSTOPERATIVE PLAN: She will be weightbearing and range of motion as tolerated. We will monitor her closely to find out what organisms were growing and place her on the appropriate IV antibiotics. ID was consulted and medicine will follow up. Once she is admitted to the medicine team, they will continue to manage her care. DVT prophylaxis will be as per the medical recommendations while she is in-house. I will see the patient back in 10 to 14 days. We will monitor her closely. If she needs a second washout, reaccumulation of fluid, and increased pain; we will do so in 48 hours. [id number]/[facility] #: [id number] [facility]
[2016-11-07 06:26] LABS: Hematocrit 30 % (35-47); Hemoglobin 9.7 g/dl (12.0-16.0); Mean Corpuscular HGB Conc 33 g/dl (31-36); Mean Corpuscular Hemoglobin 32 pg (27-31); Mean Corpuscular Volume 97 fL (80-97); Mean Platelet Volume 8 um3 (7.4-10.4); Red Blood Count 3.08 10^6/ul (4.0-5.4); Red Cell Distribution Width 15 % (10.5-15); White Blood Count 9.2 10^3/ul (3.5-10.8)
[2016-11-07 06:36] LABS: BUN/Creatinine Ratio 28.3 (8-20); Calcium 8.7 mg/dL (8.6-10.3); EGFR Non-African American 129.1 (>60); Potassium 4.1 mmol/L (3.5-5.0)
[2016-11-07] MEDS: Levothyroxine TAB* 25 MCG TAB PO SCH (07:01)
[2016-11-07] MEDS: Heparin VIAL(*) 5000 UNITS/ML VIAL (FIVE THOUSAND) SUBCUT SCH ×3 (07:01→22:21)
[2016-11-07] MEDS: cefTRIAXone VIAL(*) 1,000 MG in NS 0.9% 50 ML* 50 ML IVPB SCH (07:39)
[2016-11-07] MEDS: traMADol TAB* 50 MG PO PRN ×3 (07:39→22:20)
[2016-11-07] MEDS: NS 0.9% 1000 ML* 1,000 ML IV SCH (07:41)
[2016-11-07] MEDS: Vancomycin(*) 1,000 MG in NS 0.9% 250 ML* 250 ML IVPB SCH ×2 (08:18→19:49)
[2016-11-07] MEDS: Atenolol TAB* 25 MG PO SCH (08:19)
[2016-11-07] MEDS: Aspirin TAB* 325 MG PO SCH (08:19)
[2016-11-07] MEDS: Atorvastatin* 10 MG TAB PO SCH (08:19)
[2016-11-07] MEDS: Docusate CAP* 100 MG PO SCH ×2 (08:19→20:33)
--- NOTE | 2016-11-07 10:30 | PN ---
Progress Note - Progress Note SOAP: Subjective: DOS: 11/07/15 CC: shoulder pain HPI: 86 yo woman with recent tib.fib ORIF admitted with L>R shoulder pain, fever , vomiting. Right shoulder pain resolved. LEft shoulder pain and swelling persisted, had aspiration >180K WBC. Had I&D 11/06, tolerated it well. No fever , rash, or diarrhea. Objective: [] Vital Signs Temp 36.4 C 11/07/16 07:27 Pulse 72 11/07/16 07:27 Resp 16 11/07/16 07:39 BP 172/65 11/07/16 07:27 Pulse Ox 97 11/07/16 07:27 Intake & Output 11/06/16 11/07/16 11/07/16 18:59 06:59 18:59 Intake Total 850 314 240 Output Total 200 1125 Balance 650 -811 240 Intake: IV Fluids 650 LR 650 IVPB 264 vancomycin 264 Oral 200 50 240 Output: Urine 200 1125 Other: Estimated Void Medium # Bowel Movements 0 Estimated Stool Amount Small Estimated Blood Loss <10 Comment # Voids 3 Gen:NAD NEuro:AAOx3, answers all questions HEENT:PERRL, MMM Neck:supple Heart:RRR no murmur Lungs:CTA BL Abd:+BS NTND soft Skin: No rash MSK: L shoulder wrapped, Right ankle post op bandage intact no blood or fluid in the dressing Laboratory Results - last 24 hr 11/05/16 11/06/16 11/07/16 18:00 15:45 06:00 WBC 9.2 RBC 3.08 L Hgb 9.8 L 9.7 L Hct 29 L 30 L MCV 97 MCH 32 H MCHC 33 RDW 15 Plt Count 373 MPV 8 Neut % (Auto) 69.8 Lymph % (Auto) 18.9 L [place] % (Auto) 9.4 H Eos % (Auto) 1.3 Baso % (Auto) 0.6 Absolute Neuts (auto) 6.4 Absolute Lymphs (auto) 1.7 Absolute Monos (auto) 0.9 H Absolute Eos (auto) 0.1 Absolute Basos (auto) 0.1 Absolute Nucleated RBC 0 Nucleated RBC % 0 Sodium Potassium Chloride Carbon Dioxide Anion Gap BUN Creatinine Est GFR ( Amer) Est GFR (Non-Af Amer) BUN/Creatinine Ratio Glucose Calcium Fluid Cell Count Rvw By 11/07/16 06:00 WBC RBC Hgb Hct MCV MCH MCHC RDW Plt Count MPV Neut % (Auto) Lymph % (Auto) [place] % (Auto) Eos % (Auto) Baso % (Auto) Absolute Neuts (auto) Absolute Lymphs (auto) Absolute Monos (auto) Absolute Eos (auto) Absolute Basos (auto) Absolute Nucleated RBC Nucleated RBC % Sodium 134 Potassium 4.1 Chloride 103 Carbon Dioxide 22 Anion Gap 9 BUN 13 Creatinine 0.46 L Est GFR ( Amer) 166.0 Est GFR (Non-Af Amer) 129.1 BUN/Creatinine Ratio 28.3 H Glucose 84 Calcium 8.7 Fluid Cell Count Rvw By Microbiology 11/06/16 14:51 Gram Stain - Final Wound - Shoulder Left 11/05/16 18:00 Gram Stain - Final Joint Fluid(Synovial) - Shoulder Left Body Fluid Culture - Preliminary No Growth Day 1 Skin and Soft Tissue MRSA/MSSA (PCR - Final Mrsa Negative S.aureus Negative 11/05/16 18:00 Anaerobic Culture - Preliminary Body Fluid - Shoulder Left No Growth Day 1 Acid Fast Bacilli Smear - Final Assessment: 1. Septic left shoulder, culture NGTD, usually GP skin jose luis including COag negative Staph 2. RA on prednisone 3. PCN allergy 4. recent R ankle ORIF Plan: 1. continue vancomycin, can stop ceftriaxone while awaiting cultures. 2. TTE I spent 25 minutes >50% face to face time spent couseling regarding diagnosis and treatment of culture negative joint infection including fpc plans for abx.
--- NOTE | 2016-11-07 11:52 | PN ---
Progress Note - Progress Note SOAP: Subjective: []Patient seen at bedside, daughter present. Denies right ankle pain, minimal left shoulder pain. Overall feeling much better. Objective: [] Vital Signs Temp 97.5 F 11/07/16 07:27 Pulse 72 11/07/16 07:27 Resp 16 11/07/16 07:39 BP 172/65 11/07/16 07:27 Pulse Ox 97 11/07/16 07:27 Intake & Output 11/06/16 11/07/16 11/07/16 18:59 06:59 18:59 Intake Total 850 314 240 Output Total 200 1125 Balance 650 -811 240 Intake: IV Fluids 650 LR 650 IVPB 264 vancomycin 264 Oral 200 50 240 Output: Urine 200 1125 Other: Estimated Void Medium # Bowel Movements 0 Estimated Stool Amount Small Estimated Blood Loss <10 Comment # Voids 3 Laboratory Results - last 24 hr 11/06/16 11/07/16 11/07/16 15:45 06:00 06:00 WBC 9.2 RBC 3.08 L Hgb 9.8 L 9.7 L Hct 29 L 30 L MCV 97 MCH 32 H MCHC 33 RDW 15 Plt Count 373 MPV 8 Neut % (Auto) 69.8 Lymph % (Auto) 18.9 L [place] % (Auto) 9.4 H Eos % (Auto) 1.3 Baso % (Auto) 0.6 Absolute Neuts (auto) 6.4 Absolute Lymphs (auto) 1.7 Absolute Monos (auto) 0.9 H Absolute Eos (auto) 0.1 Absolute Basos (auto) 0.1 Absolute Nucleated RBC 0 Nucleated RBC % 0 Sodium 134 Potassium 4.1 Chloride 103 Carbon Dioxide 22 Anion Gap 9 BUN 13 Creatinine 0.46 L Est GFR ( Amer) 166.0 Est GFR (Non-Af Amer) 129.1 BUN/Creatinine Ratio 28.3 H Glucose 84 Calcium 8.7 Microbiology 11/06/16 14:51 Anaerobic Culture - Preliminary Wound - Shoulder Left No Growth Day 1 Gram Stain - Final Wound Culture - Preliminary No Growth Day 1 11/05/16 18:00 Gram Stain - Final Joint Fluid(Synovial) - Shoulder Left Body Fluid Culture - Preliminary No Growth Day 2 Skin and Soft Tissue MRSA/MSSA (PCR - Final Mrsa Negative S.aureus Negative 11/05/16 18:00 Anaerobic Culture - Preliminary Body Fluid - Shoulder Left No Growth Day 2 Acid Fast Bacilli Smear - Final 11/06/16 10:58 Aerobic Blood Culture - Preliminary Blood Venous No Growth Day 1 Anaerobic Blood Culture - Preliminary No Growth Day 1 11/06/16 10:51 Aerobic Blood Culture - Preliminary Blood Venous No Growth Day 1 Anaerobic Blood Culture - Preliminary No Growth Day 1 right ankle splint was removed, no active drainage minimal swelling medial and lateral incisions are intact without evidence of infection Nylon sutures intact calf is soft and non tender moves toes well, full sensation NVI Left shoulder dressing is CDI Left UE NVI moving elbow and hand well Assessment: []S/P I and D left shoulder infection, no growth 1 day S/P ORIF right ankle fracture 1 week post op, wounds healing well Plan: Xeroform guaze, telfa applied to incisions. multiple layers of webroll applied under fiberglass short leg cast. Remain NWB right lower extremity Continue IV Vanco per Dr. Aguilar, ceftriaxone discontinued Picc line to be placed []
--- NOTE | 2016-11-07 17:46 | PN ---
Subjective Date of Service: 11/07/16 Interval History: Pt feels well. shoulder pain is "gone" Family History: Unchanged from Admission Social History: Unchanged from Admission Past Medical History: Unchanged from Admission Objective Active Medications: Acetaminophen (Tylenol Tab*) 650 mg PO Q6H PRN PRN Reason: FEVER/PAIN Last Admin: 11/06/16 08:00 Dose: 650 mg Aspirin (Aspirin Tab*) 325 mg PO DAILY [facility] Last Admin: 11/07/16 08:19 Dose: 325 mg Atenolol (Tenormin Tab*) 25 mg PO DAILY [facility] Last Admin: 11/07/16 08:19 Dose: 25 mg Atorvastatin Calcium (Lipitor*) 10 mg PO DAILY [facility] Last Admin: 11/07/16 08:19 Dose: 10 mg Docusate Sodium (Colace Cap*) 200 mg PO BID [facility] Last Admin: 11/07/16 08:19 Dose: Not Given Fentanyl Citrate (Fentanyl*) 25 mcg IV SLOW PU Q2H PRN PRN Reason: SEVERE PAIN Last Admin: 11/07/16 01:30 Dose: 25 mcg Heparin Sodium (Porcine) (Heparin Vial(*)) 5,000 units SUBCUT Q8HR [facility] Last Admin: 11/07/16 16:32 Dose: 5,000 units Ceftriaxone Sodium 1,000 mg/ (Sodium Chloride) 50 mls @ 200 mls/hr IVPB Q24H [facility] Last Admin: 11/07/16 07:39 Dose: 200 mls/hr Sodium Chloride (Ns 0.9% 1000 Ml*) 1,000 mls @ 75 mls/hr IV PER RATE [facility] Last Admin: 11/07/16 07:41 Dose: 75 mls/hr Vancomycin HCl 1,000 mg/ (Sodium Chloride) 250 mls @ 166.667 mls/hr IVPB Q12H [facility] Last Admin: 11/07/16 08:18 Dose: 166.667 mls/hr Levothyroxine Sodium (Synthroid Tab*) 25 mcg PO DAILY@0600 [facility] Last Admin: 11/07/16 07:01 Dose: 25 mcg Melatonin (Melatonin (Nf)) 3 mg PO BEDTIME PRN; Protocol PRN Reason: Sleep Ondansetron HCl (Zofran Inj*) 4 mg IV Q6H PRN PRN Reason: NAUSEA Pharmacy Consult (Vancomycin Per Pharmacy*) 1 note FOLLOW UP . PRN PRN Reason: PER PROTOCOL Pharmacy Profile Note (Vancomycin Trough Check) 1 note FOLLOW UP ONCE ONE Stop: 11/08/16 08:01 Tramadol HCl (Ultram*) 50 mg PO Q6H PRN PRN Reason: PAIN Last Admin: 11/07/16 16:35 Dose: 50 mg Vital Signs 11/06/16 11/06/16 11/06/16 17:58 18:46 20:29 Temperature 97.5 F Pulse Rate 73 72 Respiratory 16 19 18 Rate Blood Pressure 152/58 171/54 (mmHg) O2 Sat by Pulse 98 100 Oximetry 11/06/16 11/06/16 11/06/16 21:39 22:39 23:48 Temperature 98.0 F Pulse Rate 73 Respiratory 16 16 20 Rate Blood Pressure 158/55 (mmHg) O2 Sat by Pulse 96 Oximetry 11/07/16 11/07/16 11/07/16 01:30 02:30 02:41 Temperature Pulse Rate Respiratory 18 16 Rate Blood Pressure (mmHg) O2 Sat by Pulse 98 Oximetry 11/07/16 11/07/16 11/07/16 04:21 07:27 07:39 Temperature 97.4 F 97.5 F Pulse Rate 72 72 Respiratory 16 16 16 Rate Blood Pressure 158/61 172/65 (mmHg) O2 Sat by Pulse 97 97 Oximetry 11/07/16 11/07/16 11/07/16 09:39 15:46 16:35 Temperature 97.6 F Pulse Rate 70 Respiratory 18 17 18 Rate Blood Pressure 131/51 (mmHg) O2 Sat by Pulse 98 Oximetry Oxygen Devices in Use Now: None Appearance: 86 yo F in nAd, aAOx3 Eyes: No Scleral Icterus, PERRLA Ears/Nose/Mouth/Throat: NL Teeth, Lips, Gums, Mucous Membranes Moist Neck: NL Appearance and Movements; NL JVP Respiratory: Symmetrical Chest Expansion and Respiratory Effort, Clear to Auscultation Cardiovascular: NL Sounds; No Murmurs; No JVD, RRR Abdominal: NL Sounds; No Tenderness; No Distention, No Hepatosplenomegaly Lymphatic: No Cervical Adenopathy Extremities: No Clubbing, Cyanosis, - - left soulder in surgical dressings-not removed. R distal LE in post op splint-not removed Skin: No Nodules or Sclerosis Neurological: Alert and Oriented x 3, NL Muscle Strength and Tone Result Diagrams: 11/07/16 06:00 11/07/16 06:00 Additional Lab and Data: Lab Results 11/04/16 11/04/16 11/04/16 Range/Units 20:50 20:50 20:50 WBC 15.4 H (3.5-10.8) 10^3/ul RBC 3.56 L (4.0-5.4) 10^6/ul Hgb 11.3 L (12.0-16.0) g/dl Hct 34 L (35-47) % MCV 95 (80-97) fL MCH 32 H (27-31) pg MCHC 33 (31-36) g/dl RDW 15 (10.5-15) % Plt Count 379 (150-450) 10^3/ul MPV 8 (7.4-10.4) um3 Neut % (Auto) 90.5 H (38-83) % Lymph % (Auto) 4.0 L (25-47) % [place] % (Auto) 5.1 (1-9) % Eos % (Auto) 0 (0-6) % Baso % (Auto) 0.4 (0-2) % Absolute Neuts (auto) 13.9 H (1.5-7.7) 10^3/ul Absolute Lymphs (auto) 0.6 L (1.0-4.8) 10^3/ul Absolute Monos (auto) 0.8 (0-0.8) 10^3/ul Absolute Eos (auto) 0 (0-0.6) 10^3/ul Absolute Basos (auto) 0.1 (0-0.2) 10^3/ul Absolute Nucleated RBC 0 10^3/ul Nucleated RBC % 0 Sodium 133 (133-145) mmol/L Potassium 4.0 (3.5-5.0) mmol/L Chloride 98 L (101-111) mmol/L Carbon Dioxide 27 (22-32) mmol/L Anion Gap 8 (2-11) mmol/L BUN 20 (6-24) mg/dL Creatinine 0.62 (0.51-0.95) mg/dL Est GFR ( Amer) 117.7 (>60) Est GFR (Non-Af Amer) 91.5 (>60) BUN/Creatinine Ratio 32.3 H (8-20) Glucose 144 H (70-100) mg/dL Lactic Acid 0.7 (0.5-2.0) mmol/L Calcium 9.5 (8.6-10.3) mg/dL Magnesium 1.5 L (1.9-2.7) mg/dL Total Bilirubin 0.50 (0.2-1.0) mg/dL AST 25 (13-39) U/L ALT 16 (7-52) U/L Alkaline Phosphatase 78 (34-104) U/L C-Reactive Protein 91.54 H (< 5.00) mg/L Total Protein 6.3 L (6.4-8.9) g/dL Albumin 3.4 (3.2-5.2) g/dL Globulin 2.9 (2-4) g/dL Albumin/Globulin Ratio 1.2 (1-3) Lipase 10 L (11.0-82.0) U/L Microbiology and Other Data: Microbiology 11/05/16 18:00 Acid Fast Bacilli Smear - Final Body Fluid - Shoulder Left 11/05/16 18:00 Gram Stain - Final Joint Fluid(Synovial) - Shoulder Left Skin and Soft Tissue MRSA/MSSA (PCR - Final Mrsa Negative S.aureus Negative Assess/Plan/Problems-Billing Assessment: Mrs. Paniagua is an 86yo F with PMH of HTN, HLD, hypothyroidism, RA, s/p bilateral TKR, recent admission for ORIF of right ankle fracture, currently at [facility] for rehab, who presented to ED with c/o N/V/D, likely secondary to viral gastroenteritis. - Patient Problems (1) Sepsis Comment: Met sepsis criteria on admission with fever and leukocytosis. Source is viral gastroenteritis and septic shoulder (although her leukocytosis is already trending down even before antibiotics). (2) Shoulder pain Comment: Ortho consult appreciated - synovial fluid shows >190k cells 90% WBC suggestive of septic joint. S/p left shoulder washout on 11/06/16, now dramatically improved. cont Vancomycin. cont Ceftriaxone empirically. ID consult requested appreciated, most likley PICC tomorrow. (3) Viral gastroenteritis Comment: resolved. (4) HTN (hypertension) Comment: - Continue Atenolol. (5) Hypothyroid Comment: Continue levothyroxine. (6) HLD (hyperlipidemia) Comment: Continue statin. (7) DVT prophylaxis Comment: - SQ heparin. Status and Disposition: Inpatient. and daughter are persons to contact ([phone]/).
--- NOTE | 2016-11-07 20:01 | PN ---
Progress Note - Progress Note Note: POD#1 from I and D of left shoulder. feeling well. No complaints. leg splint changed today Temp Pulse Resp BP Pulse Ox 97.6 F 70 18 131/51 98 11/07/16 15:46 11/07/16 15:46 11/07/16 18:35 11/07/16 15:46 11/07/16 16:00 NAD. left shoulder examined. dressing in place. able to comfortable move shoulder. flex/ext elbow, wrist, and hand. SILT. brisk cap refill Laboratory Results - last 24 hr 11/07/16 11/07/16 06:00 06:00 WBC 9.2 RBC 3.08 L Hgb 9.7 L Hct 30 L MCV 97 MCH 32 H MCHC 33 RDW 15 Plt Count 373 MPV 8 Neut % (Auto) 69.8 Lymph % (Auto) 18.9 L [place] % (Auto) 9.4 H Eos % (Auto) 1.3 Baso % (Auto) 0.6 Absolute Neuts (auto) 6.4 Absolute Lymphs (auto) 1.7 Absolute Monos (auto) 0.9 H Absolute Eos (auto) 0.1 Absolute Basos (auto) 0.1 Absolute Nucleated RBC 0 Nucleated RBC % 0 Sodium 134 Potassium 4.1 Chloride 103 Carbon Dioxide 22 Anion Gap 9 BUN 13 Creatinine 0.46 L Est GFR ( Amer) 166.0 Est GFR (Non-Af Amer) 129.1 BUN/Creatinine Ratio 28.3 H Glucose 84 Calcium 8.7 Microbiology 11/06/16 14:51 Anaerobic Culture - Preliminary Wound - Shoulder Left No Growth Day 1 Gram Stain - Final Wound Culture - Preliminary No Growth Day 1 11/05/16 18:00 Gram Stain - Final Joint Fluid(Synovial) - Shoulder Left Body Fluid Culture - Preliminary No Growth Day 2 Skin and Soft Tissue MRSA/MSSA (PCR - Final Mrsa Negative S.aureus Negative 11/05/16 18:00 Anaerobic Culture - Preliminary Body Fluid - Shoulder Left No Growth Day 2 Acid Fast Bacilli Smear - Final 11/06/16 10:58 Aerobic Blood Culture - Preliminary Blood Venous No Growth Day 1 Anaerobic Blood Culture - Preliminary No Growth Day 1 11/06/16 10:51 Aerobic Blood Culture - Preliminary Blood Venous No Growth Day 1 Anaerobic Blood Culture - Preliminary No Growth Day 1 A/P s/p L shoulder I and D cultures pending dressing change tomorrow or friday activity as tolerated for shoulder. NWB for right leg. will need follow up with me for both ankle and shoulder in 10-14 days
[2016-11-08] MEDS: Heparin VIAL(*) 5000 UNITS/ML VIAL (FIVE THOUSAND) SUBCUT SCH ×3 (05:27→21:37)
[2016-11-08] MEDS: Levothyroxine TAB* 25 MCG TAB PO SCH (05:27)
[2016-11-08] MEDS: cefTRIAXone VIAL(*) 1,000 MG in NS 0.9% 50 ML* 50 ML IVPB SCH (07:37)
[2016-11-08] MEDS ORDERED: Vancomycin Trough Check NOTE FOLLOW UP ONE (08:00)
[2016-11-08] MEDS: Atenolol TAB* 25 MG PO SCH (08:58)
[2016-11-08] MEDS: Atorvastatin* 10 MG TAB PO SCH (08:58)
[2016-11-08] MEDS: Vancomycin(*) 1,000 MG in NS 0.9% 250 ML* 250 ML IVPB SCH ×2 (08:58→19:38)
[2016-11-08] MEDS: Aspirin TAB* 325 MG PO SCH (08:58)
[2016-11-08] MEDS: Docusate CAP* 100 MG PO SCH ×2 (08:58→19:42)
--- NOTE | 2016-11-08 09:47 | PN ---
Progress Note - Progress Note SOAP: Subjective: DOS: 11/08/15 CC: shoulder pain HPI: 86 yo woman with recent tib.fib ORIF admitted with L>R shoulder pain, fever , vomiting. Right shoulder pain resolved. Left shoulder pain and swelling persisted, had aspiration >180K WBC. Had I&D 11/06, tolerated it well. No fever , rash, or diarrhea. No shoulder pain. Objective: [] Vital Signs Temp 36.8 C 11/08/16 07:39 Pulse 78 11/08/16 07:39 Resp 18 11/08/16 07:39 BP 188/80 11/08/16 07:48 Pulse Ox 96 11/08/16 07:39 Intake & Output 11/07/16 11/08/16 11/08/16 18:59 06:59 18:59 Intake Total 920 600 Output Total 250 1500 Balance 670 -900 Intake: Oral 920 600 Output: Urine 250 1500 Other: Estimated Void Medium Medium # Bowel Movements 0 # Voids 1 1 Gen:NAD NEuro:AAOx3, answers all questions HEENT:PERRL, MMM Neck:supple Heart:RRR no murmur Lungs:CTA BL Abd:+BS NTND soft Skin: No rash MSK: L shoulder wrapped, Right ankle post op bandage intact no blood or fluid in the dressing Microbiology 11/05/16 18:00 Joint Fluid(Synovial) - Shoulder Left Gram Stain - Final 11/05/16 18:00 Joint Fluid(Synovial) - Shoulder Left Body Fluid Culture - Preliminary No Growth Day 3 11/05/16 18:00 Joint Fluid(Synovial) - Shoulder Left Skin and Soft Tissue MRSA/MSSA (PCR - Final Mrsa Negative S.aureus Negative 11/05/16 18:00 Body Fluid - Shoulder Left Anaerobic Culture - Preliminary No Growth Day 3 11/05/16 18:00 Body Fluid - Shoulder Left Acid Fast Bacilli Smear - Final 11/06/16 14:51 Wound - Shoulder Left Anaerobic Culture - Preliminary No Growth Day 1 11/06/16 14:51 Wound - Shoulder Left Gram Stain - Final 11/06/16 14:51 Wound - Shoulder Left Wound Culture - Preliminary No Growth Day 1 11/06/16 10:58 Blood Venous Aerobic Blood Culture - Preliminary No Growth Day 1 11/06/16 10:58 Blood Venous Anaerobic Blood Culture - Preliminary No Growth Day 1 11/06/16 10:51 Blood Venous Aerobic Blood Culture - Preliminary No Growth Day 1 11/06/16 10:51 Blood Venous Anaerobic Blood Culture - Preliminary No Growth Day 1 Assessment: 1. Septic left shoulder, culture NGTD, usually GP skin jose luis including COag negative Staph 2. RA on prednisone 3. PCN allergy 4. recent R ankle ORIF Plan: 1. continue vancomycin, goal trough 15-20, DC ceftriaxone, place PICC
--- NOTE | 2016-11-08 09:52 | PN ---
Progress Note - Progress Note SOAP: Subjective: POD #2 Left shoulder arthroscopic I&D. Doing very well. States that pain is significantly improved. Denies f/c, n/v. Objective: Vitals: Temp Pulse Resp BP Pulse Ox 98.2 F 78 18 188/80 96 02/03/17 07:39 02// 07:39 02/12/20 07:39 /12/20 07:48 /12/20 07:39 Gen: A&O x3, NAD at rest Left shoulder: Dressing C/D/I, abduction to 50 deg, ER to 30 deg and IR to ASIS without significant pain. N/V intact distally RLE: cast C/D/I, +f/e at MTPs, N/V intact Labs: Laboratory Results - last 24 hr 02// 07:40 Vancomycin Trough 15.2 Assessment: POD #2 Left shoulder I&D, doing well Plan: Continue abx per ID Continue NWB RLE, WBAT LUE Dispo per medicine
[2016-11-08] MEDS: traMADol TAB* 50 MG PO PRN ×2 (12:11→23:15)
--- NOTE | 2016-11-08 14:35 | PN ---
Subjective Date of Service: 11/08/16 Interval History: Pt feels "much better". Family History: Unchanged from Admission Social History: Unchanged from Admission Past Medical History: Unchanged from Admission Objective Active Medications: Acetaminophen (Tylenol Tab*) 650 mg PO Q6H PRN PRN Reason: FEVER/PAIN Last Admin: 11/06/16 08:00 Dose: 650 mg Aspirin (Aspirin Tab*) 325 mg PO DAILY [facility] Last Admin: 11/08/16 08:58 Dose: 325 mg Atenolol (Tenormin Tab*) 25 mg PO DAILY [facility] Last Admin: 11/08/16 08:58 Dose: 25 mg Atorvastatin Calcium (Lipitor*) 10 mg PO DAILY [facility] Last Admin: 11/08/16 08:58 Dose: 10 mg Docusate Sodium (Colace Cap*) 200 mg PO BID [facility] Last Admin: 11/08/16 08:58 Dose: Not Given Fentanyl Citrate (Fentanyl*) 25 mcg IV SLOW PU Q2H PRN PRN Reason: SEVERE PAIN Last Admin: 11/07/16 01:30 Dose: 25 mcg Heparin Sodium (Porcine) (Heparin Vial(*)) 5,000 units SUBCUT Q8HR [facility] Last Admin: 11/08/16 14:02 Dose: 5,000 units Vancomycin HCl 1,000 mg/ (Sodium Chloride) 250 mls @ 166.667 mls/hr IVPB Q12H [facility] Last Admin: 11/08/16 08:58 Dose: 166.667 mls/hr Levothyroxine Sodium (Synthroid Tab*) 25 mcg PO DAILY@0600 [facility] Last Admin: 11/08/16 05:27 Dose: 25 mcg Melatonin (Melatonin (Nf)) 3 mg PO BEDTIME PRN; Protocol PRN Reason: Sleep Ondansetron HCl (Zofran Inj*) 4 mg IV Q6H PRN PRN Reason: NAUSEA Pharmacy Consult (Vancomycin Per Pharmacy*) 1 note FOLLOW UP . PRN PRN Reason: PER PROTOCOL Pharmacy Profile Note (Vancomycin Trough Check) 1 note FOLLOW UP 0800 ONE Stop: 11/11/16 08:01 Tramadol HCl (Ultram*) 50 mg PO Q6H PRN PRN Reason: PAIN Last Admin: 11/08/16 12:11 Dose: 50 mg Vital Signs 11/07/16 11/07/16 11/07/16 15:46 16:00 16:35 Temperature 97.6 F Pulse Rate 70 Respiratory 17 18 Rate Blood Pressure 131/51 (mmHg) O2 Sat by Pulse 98 98 Oximetry 11/07/16 11/07/16 11/07/16 18:35 20:00 22:20 Temperature Pulse Rate Respiratory 18 16 16 Rate Blood Pressure (mmHg) O2 Sat by Pulse Oximetry 11/08/16 11/08/16 11/08/16 00:17 00:20 00:32 Temperature 97.7 F Pulse Rate 79 Respiratory 16 15 Rate Blood Pressure 181/61 172/68 (mmHg) O2 Sat by Pulse 97 Oximetry 11/08/16 11/08/16 11/08/16 07:39 07:48 08:00 Temperature 98.2 F Pulse Rate 78 Respiratory 18 18 Rate Blood Pressure 192/62 188/80 (mmHg) O2 Sat by Pulse 96 96 Oximetry 11/08/16 11/08/16 10:24 12:11 Temperature Pulse Rate Respiratory 16 Rate Blood Pressure (mmHg) O2 Sat by Pulse 96 Oximetry Oxygen Devices in Use Now: None Appearance: 86 yo F in NAD, AAOx3 Eyes: No Scleral Icterus, PERRLA Ears/Nose/Mouth/Throat: NL Teeth, Lips, Gums, Mucous Membranes Moist Neck: NL Appearance and Movements; NL JVP, Trachea Midline Respiratory: Symmetrical Chest Expansion and Respiratory Effort, Clear to Auscultation Cardiovascular: NL Sounds; No Murmurs; No JVD, RRR Abdominal: NL Sounds; No Tenderness; No Distention, No Hepatosplenomegaly Lymphatic: No Cervical Adenopathy Extremities: No Clubbing, Cyanosis, - - left shoulder with good ROM, minmal tenderness on palpation. B/l knees and R shoulder-no effusion , no tenderness noted. Distal R LE in a cast Skin: No Nodules or Sclerosis, - - left shoulder post op incision covered with Tegaderm, not uncovered Neurological: Alert and Oriented x 3, NL Muscle Strength and Tone Result Diagrams: 11/07/16 06:00 11/07/16 06:00 Additional Lab and Data: Lab Results 11/04/16 11/04/16 11/04/16 Range/Units 20:50 20:50 20:50 WBC 15.4 H (3.5-10.8) 10^3/ul RBC 3.56 L (4.0-5.4) 10^6/ul Hgb 11.3 L (12.0-16.0) g/dl Hct 34 L (35-47) % MCV 95 (80-97) fL MCH 32 H (27-31) pg MCHC 33 (31-36) g/dl RDW 15 (10.5-15) % Plt Count 379 (150-450) 10^3/ul MPV 8 (7.4-10.4) um3 Neut % (Auto) 90.5 H (38-83) % Lymph % (Auto) 4.0 L (25-47) % Bulloch % (Auto) 5.1 (1-9) % Eos % (Auto) 0 (0-6) % Baso % (Auto) 0.4 (0-2) % Absolute Neuts (auto) 13.9 H (1.5-7.7) 10^3/ul Absolute Lymphs (auto) 0.6 L (1.0-4.8) 10^3/ul Absolute Monos (auto) 0.8 (0-0.8) 10^3/ul Absolute Eos (auto) 0 (0-0.6) 10^3/ul Absolute Basos (auto) 0.1 (0-0.2) 10^3/ul Absolute Nucleated RBC 0 10^3/ul Nucleated RBC % 0 Sodium 133 (133-145) mmol/L Potassium 4.0 (3.5-5.0) mmol/L Chloride 98 L (101-111) mmol/L Carbon Dioxide 27 (22-32) mmol/L Anion Gap 8 (2-11) mmol/L BUN 20 (6-24) mg/dL Creatinine 0.62 (0.51-0.95) mg/dL Est GFR ( Amer) 117.7 (>60) Est GFR (Non-Af Amer) 91.5 (>60) BUN/Creatinine Ratio 32.3 H (8-20) Glucose 144 H (70-100) mg/dL Lactic Acid 0.7 (0.5-2.0) mmol/L Calcium 9.5 (8.6-10.3) mg/dL Magnesium 1.5 L (1.9-2.7) mg/dL Total Bilirubin 0.50 (0.2-1.0) mg/dL AST 25 (13-39) U/L ALT 16 (7-52) U/L Alkaline Phosphatase 78 (34-104) U/L C-Reactive Protein 91.54 H (< 5.00) mg/L Total Protein 6.3 L (6.4-8.9) g/dL Albumin 3.4 (3.2-5.2) g/dL Globulin 2.9 (2-4) g/dL Albumin/Globulin Ratio 1.2 (1-3) Lipase 10 L (11.0-82.0) U/L Microbiology and Other Data: Microbiology 11/05/16 18:00 Acid Fast Bacilli Smear - Final Body Fluid - Shoulder Left 11/05/16 18:00 Gram Stain - Final Joint Fluid(Synovial) - Shoulder Left Skin and Soft Tissue MRSA/MSSA (PCR - Final Mrsa Negative S.aureus Negative Assess/Plan/Problems-Billing Assessment: Mrs. Paniagua is an 86yo F with PMH of HTN, HLD, hypothyroidism, RA, s/p bilateral TKR, recent admission for ORIF of right ankle fracture, currently at [facility] for rehab, who presented to ED with c/o N/V/D, likely secondary to viral gastroenteritis. - Patient Problems (1) Sepsis Comment: Met sepsis criteria on admission with fever and leukocytosis. Source is viral gastroenteritis and septic shoulder (although her leukocytosis was already trending down even before antibiotics). (2) Shoulder pain Comment: Ortho consult appreciated - synovial fluid shows >190k cells 90% WBC suggestive of septic joint. S/p left shoulder washout on 11/06/16, now dramatically improved. cont Vancomycin. ID consult requested appreciated. S/p PICC today and most likely 6 weeks of IV antibiotics Cx neg so far. (3) Viral gastroenteritis Comment: resolved. (4) HTN (hypertension) Comment: - Continue Atenolol. Hypertensive this AM prior to meds, now normalized (5) Hypothyroid Comment: Continue levothyroxine. (6) HLD (hyperlipidemia) Comment: Continue statin. (7) DVT prophylaxis Comment: - SQ heparin. Status and Disposition: Inpatient. and daughter are persons to contact ([phone]). plan for STR on Friday.
[2016-11-09] MEDS: Levothyroxine TAB* 25 MCG TAB PO SCH (05:30)
[2016-11-09] MEDS: Heparin VIAL(*) 5000 UNITS/ML VIAL (FIVE THOUSAND) SUBCUT SCH ×3 (05:35→21:37)
[2016-11-09] MEDS: Docusate CAP* 100 MG PO SCH ×2 (07:16→19:59)
[2016-11-09] MEDS ORDERED: amLODIPine TAB* 5 MG ONE (07:55)
[2016-11-09] MEDS: Vancomycin(*) 1,000 MG in NS 0.9% 250 ML* 250 ML IVPB SCH ×2 (08:03→19:56)
[2016-11-09] MEDS: Atenolol TAB* 25 MG PO SCH (08:03)
[2016-11-09] MEDS: Aspirin TAB* 325 MG PO SCH (08:03)
[2016-11-09] MEDS: Atorvastatin* 10 MG TAB PO SCH (08:03)
[2016-11-09] MEDS: amLODIPine TAB* 5 MG PO SCH (09:32)
--- NOTE | 2016-11-09 09:41 | PN ---
Progress Note - Progress Note SOAP: Subjective: [Pt was seen sitting up in bed today. She states that she is having no pain in her shoulder or foot. She states that she did have a bit of diarrhea yesterday but nothing as of today. She states that she has no complaints today. Denies any fevers, chills, night sweats. ] Objective: Gen: Pt is alert and oriented and in no acute distress Left shoulder: Dressing was changed today. Xeroform, guaze and tegaderm was applied. Incisions looked clean and dry. Minimal blood was seen on the previous dressing. abduction to 50 deg, ER to 30 deg without significant pain. N/V intact distally RLE: cast C/D/I, N/V intact Vital Signs Temp 98.1 F 11/09/16 07:44 Pulse 72 11/09/16 07:44 Resp 18 11/09/16 08:00 BP 181/58 11/09/16 07:44 Pulse Ox 97 11/09/16 08:22 Intake & Output 11/08/16 11/09/16 11/09/16 18:59 06:59 18:59 Intake Total 1040 1040 Output Total 1120 Balance 1040 -80 Intake: Oral 1040 1040 Output: Urine 1120 Other: Estimated Void Medium Small # Bowel Movements 1 3 Estimated Stool Amount Medium Small # Voids 4 4 Assessment: POD #3 Left shoulder I&D, doing well Plan: Continue current pain management Continue abx per ID Continue NWB RLE, WBAT LUE Dispo per medicine
--- NOTE | 2016-11-09 13:16 | PN ---
Subjective Date of Service: 11/09/16 Interval History: Pt feels well. Had 2x loose stool last night, denies abd pain Family History: Unchanged from Admission Social History: Unchanged from Admission Past Medical History: Unchanged from Admission Objective Active Medications: Acetaminophen (Tylenol Tab*) 650 mg PO Q6H PRN PRN Reason: FEVER/PAIN Last Admin: 11/06/16 08:00 Dose: 650 mg Amlodipine Besylate (Norvasc Tab*) 5 mg PO DAILY [facility] Last Admin: 11/09/16 09:32 Dose: 5 mg Aspirin (Aspirin Tab*) 325 mg PO DAILY [facility] Last Admin: 11/09/16 08:03 Dose: 325 mg Atenolol (Tenormin Tab*) 25 mg PO DAILY [facility] Last Admin: 11/09/16 08:03 Dose: 25 mg Atorvastatin Calcium (Lipitor*) 10 mg PO DAILY [facility] Last Admin: 11/09/16 08:03 Dose: 10 mg Docusate Sodium (Colace Cap*) 200 mg PO BID [facility] Last Admin: 11/09/16 07:16 Dose: Not Given Fentanyl Citrate (Fentanyl*) 25 mcg IV SLOW PU Q2H PRN PRN Reason: SEVERE PAIN Last Admin: 11/07/16 01:30 Dose: 25 mcg Heparin Sodium (Porcine) (Heparin Vial(*)) 5,000 units SUBCUT Q8HR [facility] Last Admin: 11/09/16 05:35 Dose: 5,000 units Heparin Sodium (Porcine) (Heparin Flush Picc/Ml/Cvc(*)) 1 - 3 ml FLUSH 0600, 1800 [facility] PRN Reason: Protocol Last Admin: 11/09/16 10:17 Dose: 1 ml Vancomycin HCl 1,000 mg/ (Sodium Chloride) 250 mls @ 166.667 mls/hr IVPB Q12H [facility] Last Admin: 11/09/16 08:03 Dose: 166.667 mls/hr Levothyroxine Sodium (Synthroid Tab*) 25 mcg PO DAILY@0600 [facility] Last Admin: 11/09/16 05:30 Dose: 25 mcg Melatonin (Melatonin (Nf)) 3 mg PO BEDTIME PRN; Protocol PRN Reason: Sleep Ondansetron HCl (Zofran Inj*) 4 mg IV Q6H PRN PRN Reason: NAUSEA Pharmacy Consult (Vancomycin Per Pharmacy*) 1 note FOLLOW UP . PRN PRN Reason: PER PROTOCOL Pharmacy Profile Note (Vancomycin Trough Check) 1 note FOLLOW UP 0800 ONE Stop: 11/11/16 08:01 Tramadol HCl (Ultram*) 50 mg PO Q6H PRN PRN Reason: PAIN Last Admin: 11/08/16 23:15 Dose: 50 mg Vital Signs 11/08/16 11/08/16 11/08/16 14:11 14:32 20:00 Temperature Pulse Rate Respiratory 16 16 Rate Blood Pressure 175/70 (mmHg) O2 Sat by Pulse Oximetry 11/08/16 11/09/16 11/09/16 23:15 01:15 06:13 Temperature 98.5 F Pulse Rate 70 Respiratory 16 15 15 Rate Blood Pressure 173/59 (mmHg) O2 Sat by Pulse 96 Oximetry 11/09/16 11/09/16 11/09/16 07:44 08:00 08:22 Temperature 98.1 F Pulse Rate 72 Respiratory 18 18 Rate Blood Pressure 181/58 (mmHg) O2 Sat by Pulse 97 97 97 Oximetry Oxygen Devices in Use Now: None Appearance: 86 yo F in nAd, AAOx3 Eyes: No Scleral Icterus, PERRLA Ears/Nose/Mouth/Throat: NL Teeth, Lips, Gums, Mucous Membranes Moist Neck: NL Appearance and Movements; NL JVP, Trachea Midline Respiratory: Symmetrical Chest Expansion and Respiratory Effort, Clear to Auscultation Cardiovascular: NL Sounds; No Murmurs; No JVD, RRR Abdominal: NL Sounds; No Tenderness; No Distention Lymphatic: No Cervical Adenopathy Extremities: No Clubbing, Cyanosis, - - left ankle in a cast. R shoulder covered with Tegaderm Skin: No Nodules or Sclerosis Neurological: Alert and Oriented x 3, NL Muscle Strength and Tone Result Diagrams: 11/07/16 06:00 11/07/16 06:00 Additional Lab and Data: Lab Results 11/04/16 11/04/16 11/04/16 Range/Units 20:50 20:50 20:50 WBC 15.4 H (3.5-10.8) 10^3/ul RBC 3.56 L (4.0-5.4) 10^6/ul Hgb 11.3 L (12.0-16.0) g/dl Hct 34 L (35-47) % MCV 95 (80-97) fL MCH 32 H (27-31) pg MCHC 33 (31-36) g/dl RDW 15 (10.5-15) % Plt Count 379 (150-450) 10^3/ul MPV 8 (7.4-10.4) um3 Neut % (Auto) 90.5 H (38-83) % Lymph % (Auto) 4.0 L (25-47) % [place] % (Auto) 5.1 (1-9) % Eos % (Auto) 0 (0-6) % Baso % (Auto) 0.4 (0-2) % Absolute Neuts (auto) 13.9 H (1.5-7.7) 10^3/ul Absolute Lymphs (auto) 0.6 L (1.0-4.8) 10^3/ul Absolute Monos (auto) 0.8 (0-0.8) 10^3/ul Absolute Eos (auto) 0 (0-0.6) 10^3/ul Absolute Basos (auto) 0.1 (0-0.2) 10^3/ul Absolute Nucleated RBC 0 10^3/ul Nucleated RBC % 0 Sodium 133 (133-145) mmol/L Potassium 4.0 (3.5-5.0) mmol/L Chloride 98 L (101-111) mmol/L Carbon Dioxide 27 (22-32) mmol/L Anion Gap 8 (2-11) mmol/L BUN 20 (6-24) mg/dL Creatinine 0.62 (0.51-0.95) mg/dL Est GFR ( Amer) 117.7 (>60) Est GFR (Non-Af Amer) 91.5 (>60) BUN/Creatinine Ratio 32.3 H (8-20) Glucose 144 H (70-100) mg/dL Lactic Acid 0.7 (0.5-2.0) mmol/L Calcium 9.5 (8.6-10.3) mg/dL Magnesium 1.5 L (1.9-2.7) mg/dL Total Bilirubin 0.50 (0.2-1.0) mg/dL AST 25 (13-39) U/L ALT 16 (7-52) U/L Alkaline Phosphatase 78 (34-104) U/L C-Reactive Protein 91.54 H (< 5.00) mg/L Total Protein 6.3 L (6.4-8.9) g/dL Albumin 3.4 (3.2-5.2) g/dL Globulin 2.9 (2-4) g/dL Albumin/Globulin Ratio 1.2 (1-3) Lipase 10 L (11.0-82.0) U/L Microbiology and Other Data: Microbiology 11/05/16 18:00 Acid Fast Bacilli Smear - Final Body Fluid - Shoulder Left 11/05/16 18:00 Gram Stain - Final Joint Fluid(Synovial) - Shoulder Left Skin and Soft Tissue MRSA/MSSA (PCR - Final Mrsa Negative S.aureus Negative Assess/Plan/Problems-Billing Assessment: Mrs. Paniagua is an 86yo F with PMH of HTN, HLD, hypothyroidism, RA, s/p bilateral TKR, recent admission for ORIF of right ankle fracture, currently at [facility] for rehab, who presented to ED with c/o N/V/D, likely secondary to viral gastroenteritis. - Patient Problems (1) Sepsis Comment: Met sepsis criteria on admission with fever and leukocytosis. Source is viral gastroenteritis and septic shoulder (although her leukocytosis was already trending down even before antibiotics). (2) Shoulder pain Comment: Ortho consult appreciated - synovial fluid shows >190k cells 90% WBC suggestive of septic joint. S/p left shoulder washout on 11/06/16, now dramatically improved. cont Vancomycin. ID consult requested appreciated. Most likely 6 weeks of IV antibiotics Cx neg so far. (3) Viral gastroenteritis Comment: resolved. (4) HTN (hypertension) Comment: - Continue Atenolol. Hypertensive this AM , Norvasc added (5) Hypothyroid Comment: Continue levothyroxine. (6) HLD (hyperlipidemia) Comment: Continue statin. (7) DVT prophylaxis Comment: - SQ heparin. Status and Disposition: Inpatient. and daughter are persons to contact ([phone]). plan for STR on Friday.
[2016-11-09] MEDS ORDERED: Lactobacillus Acidophilu (GG)* 1 CAP CAP PO ONE (13:37)
[2016-11-09] MEDS: Lactobacillus Acidophilu (GG)* 1 CAP CAP PO SCH (20:01)
[2016-11-09] MEDS: traMADol TAB* 50 MG PO PRN (21:37)
[2016-11-10 05:24] LABS: Hematocrit 29 % (35-47); Hemoglobin 9.7 g/dl (12.0-16.0); Mean Corpuscular HGB Conc 34 g/dl (31-36); Mean Corpuscular Hemoglobin 32 pg (27-31); Mean Corpuscular Volume 94 fL (80-97); Mean Platelet Volume 8 um3 (7.4-10.4); Red Blood Count 3.05 10^6/ul (4.0-5.4); Red Cell Distribution Width 15 % (10.5-15); White Blood Count 12.1 10^3/ul (3.5-10.8)
[2016-11-10 05:26] LABS: Add Diff/Slide Review? Slide Review Added; Comments Flag Yes
[2016-11-10] MEDS: Levothyroxine TAB* 25 MCG TAB PO SCH (05:32)
[2016-11-10] MEDS: Heparin VIAL(*) 5000 UNITS/ML VIAL (FIVE THOUSAND) SUBCUT SCH ×3 (05:33→21:29)
[2016-11-10 05:35] LABS: EGFR African American 122.2 (>60)
[2016-11-10] MEDS: Docusate CAP* 100 MG PO SCH ×2 (09:53→23:23)
[2016-11-10] MEDS: Lactobacillus Acidophilu (GG)* 1 CAP CAP PO SCH ×2 (09:54→21:27)
[2016-11-10] MEDS: Aspirin TAB* 325 MG PO SCH (09:54)
[2016-11-10] MEDS: traMADol TAB* 50 MG PO PRN ×2 (09:54→21:28)
[2016-11-10] MEDS: Atorvastatin* 10 MG TAB PO SCH (09:55)
[2016-11-10] MEDS: amLODIPine TAB* 5 MG PO SCH (09:55)
[2016-11-10] MEDS: Vancomycin(*) 1,000 MG in NS 0.9% 250 ML* 250 ML IVPB SCH ×2 (09:55→21:32)
[2016-11-10] MEDS: Atenolol TAB* 25 MG PO SCH (09:55)
--- NOTE | 2016-11-10 11:10 | PN ---
Progress Note - Progress Note SOAP: Subjective: [Pt was seen while sitting up in bed today. Pt states that she feels good, her pain is under control and she is feeling much improved. She complains that she is having issues going to the bathroom. She states that she is going almost right after eating.] Objective: Gen: Pt is alert and oriented and in no acute distress Left shoulder: Dressing clean and dry. N/V intact distally. RLE: cast C/D/I, N/V intact. Able to wiggle toes. Vital Signs Temp 98.1 F 11/09/16 23:16 Pulse 74 11/09/16 23:16 Resp 18 11/10/16 09:54 BP 155/63 11/09/16 23:18 Pulse Ox 97 11/10/16 08:00 Intake & Output 11/09/16 11/10/16 11/10/16 18:59 06:59 18:59 Intake Total 1200 400 236 Output Total 400 500 Balance 800 -100 236 Intake: IV Fluids 20 NS (0.9%) 20 vancomycin 0 IVPB 260 vancomycin 260 Oral 920 400 236 Output: Urine 400 500 Other: Estimated Void Medium Medium # Bowel Movements 1 0 Estimated Stool Amount Small Small # Voids 1 1 Assessment: POD #4 Left shoulder I&D, doing well Plan: Continue current pain management Continue abx per ID Continue NWB RLE, WBAT LUE Dispo per medicine
--- NOTE | 2016-11-10 11:42 | PN ---
Subjective Date of Service: 11/10/16 Interval History: P{t c/o diarrhea yesterday. This AM had one "more solid " BM. Family History: Unchanged from Admission Social History: Unchanged from Admission Past Medical History: Unchanged from Admission Objective Active Medications: Acetaminophen (Tylenol Tab*) 650 mg PO Q6H PRN PRN Reason: FEVER/PAIN Last Admin: 11/06/16 08:00 Dose: 650 mg Amlodipine Besylate (Norvasc Tab*) 5 mg PO DAILY [facility] Last Admin: 11/10/16 09:55 Dose: 5 mg Aspirin (Aspirin Tab*) 325 mg PO DAILY [facility] Last Admin: 11/10/16 09:54 Dose: 325 mg Atenolol (Tenormin Tab*) 25 mg PO DAILY [facility] Last Admin: 11/10/16 09:55 Dose: 25 mg Atorvastatin Calcium (Lipitor*) 10 mg PO DAILY [facility] Last Admin: 11/10/16 09:55 Dose: 10 mg Docusate Sodium (Colace Cap*) 200 mg PO BID [facility] Last Admin: 11/10/16 09:53 Dose: Not Given Fentanyl Citrate (Fentanyl*) 25 mcg IV SLOW PU Q2H PRN PRN Reason: SEVERE PAIN Last Admin: 11/07/16 01:30 Dose: 25 mcg Heparin Sodium (Porcine) (Heparin Vial(*)) 5,000 units SUBCUT Q8HR [facility] Last Admin: 11/10/16 05:33 Dose: 5,000 units Heparin Sodium (Porcine) (Heparin Flush Picc/Ml/Cvc(*)) 1 - 3 ml FLUSH 0600, 1800 [facility] PRN Reason: Protocol Last Admin: 11/10/16 05:30 Dose: 1 ml Vancomycin HCl 1,000 mg/ (Sodium Chloride) 250 mls @ 166.667 mls/hr IVPB Q12H [facility] Last Admin: 11/10/16 09:55 Dose: 166.667 mls/hr Lactobacillus Rhamnosus (Culturelle*) 1 cap PO BID [facility] Last Admin: 11/10/16 09:54 Dose: 1 cap Levothyroxine Sodium (Synthroid Tab*) 25 mcg PO DAILY@0600 [facility] Last Admin: 11/10/16 05:32 Dose: 25 mcg Melatonin (Melatonin (Nf)) 3 mg PO BEDTIME PRN; Protocol PRN Reason: Sleep Ondansetron HCl (Zofran Inj*) 4 mg IV Q6H PRN PRN Reason: NAUSEA Pharmacy Consult (Vancomycin Per Pharmacy*) 1 note FOLLOW UP . PRN PRN Reason: PER PROTOCOL Pharmacy Profile Note (Vancomycin Trough Check) 1 note FOLLOW UP 0800 ONE Stop: 11/11/16 08:01 Tramadol HCl (Ultram*) 50 mg PO Q6H PRN PRN Reason: PAIN Last Admin: 11/10/16 09:54 Dose: 50 mg Vital Signs 11/09/16 11/09/16 11/09/16 15:02 20:00 21:37 Temperature 97.6 F Pulse Rate 65 Respiratory 16 15 15 Rate Blood Pressure 158/52 (mmHg) O2 Sat by Pulse 97 Oximetry 11/09/16 11/09/16 11/09/16 23:16 23:18 23:37 Temperature 98.1 F Pulse Rate 74 Respiratory 19 18 Rate Blood Pressure 177/59 155/63 (mmHg) O2 Sat by Pulse 97 Oximetry 11/10/16 11/10/16 08:00 09:54 Temperature Pulse Rate Respiratory 18 18 Rate Blood Pressure (mmHg) O2 Sat by Pulse 97 Oximetry Oxygen Devices in Use Now: None Appearance: 86 yo F in nAD, aAOx3 Eyes: No Scleral Icterus, PERRLA Ears/Nose/Mouth/Throat: NL Teeth, Lips, Gums, Mucous Membranes Moist Neck: NL Appearance and Movements; NL JVP, Trachea Midline Respiratory: Symmetrical Chest Expansion and Respiratory Effort, Clear to Auscultation Cardiovascular: NL Sounds; No Murmurs; No JVD, RRR Abdominal: NL Sounds; No Tenderness; No Distention, No Hepatosplenomegaly Lymphatic: No Cervical Adenopathy Extremities: No Edema, No Clubbing, Cyanosis Skin: No Nodules or Sclerosis, - - left shoulder wound covered with Tegaderm. R distal leg in cast Neurological: Alert and Oriented x 3, NL Muscle Strength and Tone Result Diagrams: 11/10/16 05:12 11/10/16 05:12 Additional Lab and Data: Lab Results 11/04/16 11/04/16 11/04/16 Range/Units 20:50 20:50 20:50 WBC 15.4 H (3.5-10.8) 10^3/ul RBC 3.56 L (4.0-5.4) 10^6/ul Hgb 11.3 L (12.0-16.0) g/dl Hct 34 L (35-47) % MCV 95 (80-97) fL MCH 32 H (27-31) pg MCHC 33 (31-36) g/dl RDW 15 (10.5-15) % Plt Count 379 (150-450) 10^3/ul MPV 8 (7.4-10.4) um3 Neut % (Auto) 90.5 H (38-83) % Lymph % (Auto) 4.0 L (25-47) % [place] % (Auto) 5.1 (1-9) % Eos % (Auto) 0 (0-6) % Baso % (Auto) 0.4 (0-2) % Absolute Neuts (auto) 13.9 H (1.5-7.7) 10^3/ul Absolute Lymphs (auto) 0.6 L (1.0-4.8) 10^3/ul Absolute Monos (auto) 0.8 (0-0.8) 10^3/ul Absolute Eos (auto) 0 (0-0.6) 10^3/ul Absolute Basos (auto) 0.1 (0-0.2) 10^3/ul Absolute Nucleated RBC 0 10^3/ul Nucleated RBC % 0 Sodium 133 (133-145) mmol/L Potassium 4.0 (3.5-5.0) mmol/L Chloride 98 L (101-111) mmol/L Carbon Dioxide 27 (22-32) mmol/L Anion Gap 8 (2-11) mmol/L BUN 20 (6-24) mg/dL Creatinine 0.62 (0.51-0.95) mg/dL Est GFR ( Amer) 117.7 (>60) Est GFR (Non-Af Amer) 91.5 (>60) BUN/Creatinine Ratio 32.3 H (8-20) Glucose 144 H (70-100) mg/dL Lactic Acid 0.7 (0.5-2.0) mmol/L Calcium 9.5 (8.6-10.3) mg/dL Magnesium 1.5 L (1.9-2.7) mg/dL Total Bilirubin 0.50 (0.2-1.0) mg/dL AST 25 (13-39) U/L ALT 16 (7-52) U/L Alkaline Phosphatase 78 (34-104) U/L C-Reactive Protein 91.54 H (< 5.00) mg/L Total Protein 6.3 L (6.4-8.9) g/dL Albumin 3.4 (3.2-5.2) g/dL Globulin 2.9 (2-4) g/dL Albumin/Globulin Ratio 1.2 (1-3) Lipase 10 L (11.0-82.0) U/L Microbiology and Other Data: Microbiology 11/05/16 18:00 Acid Fast Bacilli Smear - Final Body Fluid - Shoulder Left 11/05/16 18:00 Gram Stain - Final Joint Fluid(Synovial) - Shoulder Left Skin and Soft Tissue MRSA/MSSA (PCR - Final Mrsa Negative S.aureus Negative Assess/Plan/Problems-Billing Assessment: Mrs. Paniagua is an 86yo F with PMH of HTN, HLD, hypothyroidism, RA, s/p bilateral TKR, recent admission for ORIF of right ankle fracture, currently at [facility] for rehab, who presented to ED with c/o N/V/D, likely secondary to viral gastroenteritis. - Patient Problems (1) Sepsis Comment: Met sepsis criteria on admission with fever and leukocytosis. Source is viral gastroenteritis and septic shoulder (although her leukocytosis was already trending down even before antibiotics). (2) Shoulder pain Comment: Ortho consult appreciated - synovial fluid showed >190k cells 90% WBC suggestive of septic joint. S/p left shoulder washout on 11/06/16, now dramatically improved. cont Vancomycin. ID consult requested appreciated. Most likely 6 weeks of IV antibiotics Cx neg so far. (3) Viral gastroenteritis Comment: resolved. (4) HTN (hypertension) Comment: - Continue Atenolol. uncontrolled, added Norvasc 11/09/16, cont to monitor (5) Hypothyroid Comment: Continue levothyroxine. (6) HLD (hyperlipidemia) Comment: Continue statin. (7) Diarrhea Comment: ? antibiotic associated? Improving. culturelle started. (8) DVT prophylaxis Comment: - SQ heparin. Status and Disposition: Inpatient. and daughter are persons to contact ([phone]/). plan for STR ([facility]) on Friday.
[2016-11-10] MEDS ORDERED: NS 0.9% 250 ML* 250 ML ONE (21:16)
[2016-11-11] MEDS: Heparin VIAL(*) 5000 UNITS/ML VIAL (FIVE THOUSAND) SUBCUT SCH (06:13)
[2016-11-11] MEDS: Levothyroxine TAB* 25 MCG TAB PO SCH (06:13)
[2016-11-11 07:39] LABS: Hematocrit 29 % (35-47); Hemoglobin 9.7 g/dl (12.0-16.0); Mean Corpuscular HGB Conc 33 g/dl (31-36); Mean Corpuscular Hemoglobin 32 pg (27-31); Mean Corpuscular Volume 95 fL (80-97); Mean Platelet Volume 8 um3 (7.4-10.4); Red Blood Count 3.07 10^6/ul (4.0-5.4); Red Cell Distribution Width 15 % (10.5-15); White Blood Count 12.4 10^3/ul (3.5-10.8)
[2016-11-11 07:49] LABS: BUN/Creatinine Ratio 23.2 (8-20); Calcium 9.5 mg/dL (8.6-10.3); EGFR Non-African American 80.9 (>60); Potassium 4.1 mmol/L (3.5-5.0)
[2016-11-11] MEDS ORDERED: Vancomycin Trough Check NOTE FOLLOW UP ONE (08:00)
[2016-11-11] MEDS: Docusate CAP* 100 MG PO SCH (08:01)
[2016-11-11] MEDS: Lactobacillus Acidophilu (GG)* 1 CAP CAP PO SCH (08:18)
[2016-11-11] MEDS: Atenolol TAB* 25 MG PO SCH (08:18)
[2016-11-11] MEDS: traMADol TAB* 50 MG PO PRN (08:19)
[2016-11-11] MEDS: Atorvastatin* 10 MG TAB PO SCH (08:19)
[2016-11-11] MEDS: Aspirin TAB* 325 MG PO SCH (08:19)
[2016-11-11 08:22] VITALS: BP 131/45
[2016-11-11] MEDS: Vancomycin(*) 1,000 MG in NS 0.9% 250 ML* 250 ML IVPB SCH (08:44)
[2016-11-11] MEDS ORDERED: amLODIPine TAB* 5 MG PO SCH (09:00)
--- NOTE | 2016-11-11 10:14 | PN ---
Progress Note - Progress Note SOAP: Subjective: DOS: 11/11/16 CC: shoulder pain HPI: 86 yo woman with recent tib.fib ORIF admitted with L>R shoulder pain, fever , vomiting. Right shoulder pain resolved. Left shoulder pain and swelling persisted, had aspiration >180K WBC. Had I&D 11/06, tolerated it well. No fever , rash, or diarrhea. No shoulder pain, ROM improving. Tolerating abx and PICC well. Objective: [] Vital Signs Temp 36.7 C 11/11/16 08:14 Pulse 69 11/11/16 08:14 Resp 16 11/11/16 08:19 BP 131/45 11/11/16 08:14 Pulse Ox 95 11/11/16 08:14 Intake & Output 11/10/16 11/11/16 11/11/16 18:59 06:59 18:59 Intake Total 996 880 240 Output Total 200 600 Balance 796 280 240 Intake: Oral 996 880 240 Output: Urine 200 600 Other: Estimated Void Medium # Bowel Movements 1 1 Estimated Stool Amount Medium Medium Large # Voids 1 Gen:NAD NEuro:AAOx3, answers all questions HEENT:PERRL, MMM Neck:supple Heart:RRR no murmur Lungs:CTA BL Abd:+BS NTND soft Skin: No rash MSK: L shoulder wrapped, Right ankle post op bandage intact no blood or fluid in the dressing Laboratory Results - last 24 hr 11/11/16 11/11/16 11/11/16 07:35 07:35 07:58 WBC 12.4 H RBC 3.07 L Hgb 9.7 L Hct 29 L MCV 95 MCH 32 H MCHC 33 RDW 15 Plt Count 529 H D MPV 8 Sodium 133 Potassium 4.1 Chloride 99 L Carbon Dioxide 31 Anion Gap 3 BUN 16 Creatinine 0.69 Est GFR ( Amer) 104.0 Est GFR (Non-Af Amer) 80.9 BUN/Creatinine Ratio 23.2 H Glucose 94 Calcium 9.5 Vancomycin Trough 23.5 Assessment: 1. Septic left shoulder, culture No growth, usually GP skin jose luis including Coag negative Staph or P acnes 2. RA on prednisone 3. PCN allergy 4. recent R ankle ORIF Plan: 1. continue vancomycin 1250 gm IV Q24hrs day , weekly cbc, cmp, crp; follow up 1-[address] José and Dr Jean
[2016-11-11] MEDS ORDERED: Vancomycin(*) 750 MG in NS 0.9% 250 ML* 250 ML IVPB SCH (12:00)
--- NOTE | 2016-11-11 13:01 | DS ---
DISCHARGE SUMMARY: DATE OF ADMISSION: 11/04/16 DATE OF ANTICIPATED DISCHARGE: 11/11/16 PRIMARY CARE PROVIDER: Jaqui Nayak NP DISCHARGE DIAGNOSES: 1. Sepsis due to left septic shoulder. 2. Viral gastroenteritis. 3. Hypertension. SECONDARY DIAGNOSES: 1. History of hypertension. 2. Status post fall and subsequent right trimalleolar ankle fracture, status post ORIF by Dr. Shrestha on 10/30/16. MEDICATIONS AT DISCHARGE: Include: 1. Acetaminophen on a p.r.n. basis. 2. Aspirin 325 mg daily. 3. Atenolol 25 mg daily. 4. Calcium carbonate 1 tablet daily. 5. Folvite 1 mg daily. 6. Hydrocodone/acetaminophen 1 tablet every 4 hours p.r.n. 7. Lactobacillus capsules 1 capsule b.i.d. 8. Levothyroxine 25 mcg daily. 9. Pataday 0.2% 1 drop both eyes daily. 10. Zocor 20 mg daily. 11. Vancomycin injections 1250 mg IV daily for another 37 days. 12. Amlodipine 5 mg daily. 13. Ultram 50 mg every 6 hours p.r.n. The patient is being discharged with remaining 37 days to complete total of 6 weeks of vancomycin treatment for septic left shoulder. During that time, the patient is recommended to have weekly CMPs, CRPs, CBCs and vancomycin troughs with report to be sent to Dr. Leal. Ambulation, patient is nonweightbearing on the right leg, and left postoperative shoulder is to weightbearing as tolerated. At discharge, the patient is recommended to follow up with Dr. Leal in approximately 2 weeks. The patient is also going to follow up with the primary care provider at [facility], Dr. Simpson, in approximately 4 to 7 days. The patient is also recommended to follow up with orthopedic surgeon, Dr. Enriquez , in approximately 1 to 2 weeks. Wound care, the patient does not need to dress the left shoulder at all. She can shower, but no bath. The stitches will be removed by Dr. Enriquez with the next appointment. The leg splint on the right lower extremity should not be taken off. LABORATORY DATA AND STUDIES PERFORMED DURING THE HOSPITAL STAY: Included on 03/22, white blood cell count 12.4, hemoglobin 9.7, hematocrit 29, and platelets 129. Sodium 133, potassium 4.1, chloride 99, carbon dioxide 31, BUN 16, creatinine 0.69. Fluid aspirated from the left shoulder showed over 190,000 white blood cells with 90% neutrophils. There were no crystals seen. Cultures of the blood as well as the fluid were negative to the date of discharge. Transthoracic echocardiogram obtained on 11/06/16, impression showed mild concentric LVH with EF of 60% to 65%. There was moderate tricuspid regurgitation and moderate mitral regurgitation. The tricuspid valve leaflets are mildly thickening with mild buckling of the leaflets, mobile strands noted. No clear-cut vegetations were noted. Compared with prior echo from 2013, the tricuspid valve strands were seen previously, the RV hypokinesis was new, the degree of mitral regurgitation has increased from mild. DIET AT DISCHARGE: Regular. CONSULTATIONS DURING THE HOSPITAL STAY: Included Dr. Enriquez from Orthopedic Surgery and Dr. Leal from Infectious Diseases. PROCEDURES DURING THE HOSPITAL STAY: Included left shoulder washout performed by Dr. Enriquez on 11/06/16. HOSPITALIZATION COURSE: Ms. Yessi Paniagua is a very nice 86-year-old female who was just discharged from our facility on 10/31/16 following right ankle ORIF performed by Dr. Shrestha for a fracture that she sustained after a fall. She went to [facility]. On 11/04/16, she developed fever, nausea , vomiting, and diarrhea, and she came into the ED for evaluation. She was also noted to have a hot left shoulder with significant effusion. Dr. Enriquez saw the patient for consultation and subsequent arthrocentesis of the area showed there are over 190,000 white cells on evaluation. Due to that, I suspected septic shoulder. Dr. Enriquez performed a washout of the shoulder on . Unfortunately, the cultures of the shoulder joint washout as well as the fluid and blood cultures were negative for any bacteria. Nevertheless, Dr. Leal saw the patient in consultation, recommended treatment with vancomycin for left septic shoulder and continuation of treatment for a total of 6 weeks. The patient's nausea and vomiting was suspected to be due to viral gastroenteritis. Her symptoms of viral gastroenteritis resolved within approximately 24 hours. The patient was septic on presentation, most likely due to septic shoulder. Gradually, she improved with treatment with antibiotics and the remaining 2 or 3 days of hospital stay where uneventful. She did have problems with hypertension and she was reluctant to take new medications or titration of the old ones. Apparently in the past, she was dizzy when atenolol was attempted to be increased in dose. She was placed on Norvasc at 5 mg daily, but she again was reluctant to increase the dose, when by the time of her discharge, her pressure was still on 170s. It was recommended at discharge that patient most likely will need titration of her Norvasc if she continues to be hypertensive despite the treatment. The patient's was concerned about her poor appetite. We did discuss with the patient and patient's that it is most likely related to patient 's viral gastroenteritis that she had several days ago and problems with low appetite due to that. She is increasing her p.o. intake. At discharge, she is nonweightbearing on the right leg and she is weightbearing as tolerated on the left shoulder. She is to follow up with Dr. Enriquez in approximately [address] Leal will see the patient in approximately 2 weeks. PHYSICAL EXAMINATION AT THE TIME OF DISCHARGE: Blood pressure 131/49, heart rate of 69 and regular, respiratory rate 17, oxygen saturation 91% on room air, temperature 98.0. General: The patient is very pleasant 86-year-old female, who is in no acute distress. Awake, alert and oriented x3. HEENT: Head atraumatic, normocephalic. Eyes: Pupils equal and reactive to light and accommodation. Oropharynx clear. Mucosa moist. Neck: Supple. No JVD. No bruit bilaterally. Cardiovascular: Regular rate and rhythm. No murmur. Respiratory: Clear to auscultation bilaterally. Abdomen: Soft, nontender. Bowel sounds present in all 4 quadrants. Extremities: There is no pedal edema. The right distal lower extremity was in a cast. Pulses +2 bilaterally. No clubbing or cyanosis. On evaluation of the skin, the left shoulder has 2 tiny incision areas that were covered each with 2 stitches. There is no dehiscence or wound infection noted. There is no significant shoulder effusion on evaluation. There is also no impaired range of motion on evaluation of the both shoulders. Neuro evaluation: Speech clear. Cranial nerves II through XII grossly intact. Motor strength is 5/5 bilaterally. Please note that at discharge, the patient's methotrexate was discontinued. In light of patient's ongoing infection, it is reasonable to stop the patient's methotrexate for the time being, most likely to be started after the IV antibiotic treatment is completed. The methotrexate could be restarted at the discretion of the patient's primary care provider later on. Please note that this is a short summary of the patient's hospital stay. Please refer to further medical records for details. TIME SPENT: Approximately 50 minutes was spent on the patient's discharge. CC: Jaqui Nayak NP; Dr. Shrestha; Dr. Erniquez; Dr. Leal; Celinacarolyn Posada; Dr. Simpson * [id number]/[facility] #: [id number] [facility]
[2016-11-13] MEDS ORDERED: Vancomycin Trough Check NOTE FOLLOW UP ONE (11:30)
== END 2016-11-11 14:20 | DRG 872 ==
LOC: ED 20:06 → MED 22:43 → OBSVTOIN 11-05 17:14
PROVIDERS: ADMIT Hospitalist; ATTEND Internal Medicine
PROC: 0R9K3ZX Drainage of Left Shoulder Joint, Percutaneous Approach, Diagnostic (ICD-10-PCS; principal; 2016-11-05)
PROC: 0R9K4ZZ Drainage of Left Shoulder Joint, Percutaneous Endoscopic Approach (ICD-10-PCS; 2016-11-06)
PROC: 02HV33Z Insertion of Infusion Device into Superior Vena Cava, Percutaneous Approach (ICD-10-PCS; 2016-11-08)
DX: A41.9 Sepsis, unspecified organism (principal); M00.812 Arthritis due to other bacteria, left shoulder; M06.9 Rheumatoid arthritis, unspecified; A08.4 Viral intestinal infection, unspecified; I10 Essential (primary) hypertension; E03.9 Hypothyroidism, unspecified; E78.5 Hyperlipidemia, unspecified; K64.4 Residual hemorrhoidal skin tags; Z96.653 Presence of artificial knee joint, bilateral; Z79.82 Long term (current) use of aspirin; Z79.899 Other long term (current) drug therapy; Z88.0 Allergy status to penicillin
CPT/HCPCS: 36415; 71020; 80048; 80053; 80202; 81003; 81015; 82550; 82565; 83605; 83690; 83735; 84520; 85014; 85018; 85025; 85027; 85652; 86140; 87040; 87070; 87073; 87102; 87116; 87205; 87206; 87640; 87641; 89051; 89060; 93306; 99284; A9270-GY; C1751; G8978-GP-CM; G8979-GP-CI; G8987-GO-CL; G8988-GO-CI; J0330; J0696; J1030; J1644; J2405; J2704; J3010; J3370; J3475

== ENCOUNTER 2016-12-19 11:11 | Inpatient (IN) | payer MEDICARE ==
[2016-12-19] MEDS ORDERED: Aspirin Low Dose CHEW TAB* 81 MG PO ONE (11:15)
--- NOTE | 2016-12-19 11:51 | RAD ---
INDICATION: Syncope COMPARISON: November 04, 2016 TECHNIQUE: An AP portable view obtained at 1135 hours is submitted. FINDINGS: Bones/Soft Tissues: There are no acute bony findings. There is a right-sided PICC catheter terminating in the superior vena cava. There are multiple surgical clips projecting over the right paratracheal region Cardiomediastinal: The cardiomediastinal silhouette is normal in size.. Lungs: There are no infiltrates. There is mild hyperinflation Pleura: There are no pleural effusions. Other: None IMPRESSION: POSTSURGICAL CHANGES. HYPERINFLATION. NO ACTIVE DISEASE.
[2016-12-19 12:27] LABS: Hematocrit 28 % (35-47); Hemoglobin 9.3 g/dl (12.0-16.0); Mean Corpuscular HGB Conc 33 g/dl (31-36); Mean Corpuscular Hemoglobin 31 pg (27-31); Mean Corpuscular Volume 93 fL (80-97); Mean Platelet Volume 8 um3 (7.4-10.4); Red Blood Count 3.03 10^6/ul (4.0-5.4); Red Cell Distribution Width 15 % (10.5-15); White Blood Count 11.7 10^3/ul (3.5-10.8)
[2016-12-19 12:38] LABS: Albumin 3.3 g/dL (3.2-5.2); BUN/Creatinine Ratio 26.9 (8-20); C Reactive Protein 23.96 mg/L (< 5.00); Calcium 9.7 mg/dL (8.6-10.3); EGFR African American 64.8 (>60); EGFR Non-African American 50.4 (>60); Globulin 2.7 g/dL (2-4); Potassium 4.1 mmol/L (3.5-5.0); Total Bilirubin 0.3 mg/dL (0.2-1.0)
[2016-12-19 12:39] LABS: Troponin I 0.02 ng/mL (<0.04)
[2016-12-19 13:28] LABS: Erythrocyte Sed Rate 60 mm/Hr (0-40)
[2016-12-19] MEDS ORDERED: NS 0.9% 1000 ML* 2,000 ML IV ONE (13:57)
[2016-12-19] MEDS ORDERED: Vancomycin(*) 1,000 MG in NS 0.9% 250 ML* 250 ML IVPB ONE (14:31)
[2016-12-19] MEDS ORDERED: Cefepime(*) 2 GM in NS 0.9% 50 ML* 50 ML IVPB ONE (14:31)
[2016-12-19] MEDS ORDERED: oxyCODONE/Acetamin 5/325 MG* TAB PO PRN (15:21)
[2016-12-19] MEDS ORDERED: Al Hydrox/Mg Hydrox/Simet LIQ* 30 ML UDC PO PRN (15:23)
[2016-12-19] MEDS ORDERED: Magnesium Hydroxide LIQ* 30 ML UDC PO PRN (15:23)
[2016-12-19] MEDS ORDERED: NS 0.9% 1000 ML* 1,000 ML IV SCH ×2 (15:30→15:35)
--- NOTE | 2016-12-19 16:01 | PN ---
Progress Note - Progress Note Note: Full note dictated. S/p ORIF R ankle. by Dr. Shrestha in 10/22. She is admitted s/ p syncopal fall. Also s/p washout of infected shoulder by Dr. Enriquez last month. No signs of infection in right ankle. Moves ankle form neutral dorsiflexion to 45 plantar flexion without much pain. Will check an xray just to make sure everything is okay but otherwise follow up with Dr. Enriquez at her next scheduled appointment which I believe is next week.
--- NOTE | 2016-12-19 19:33 | HP ---
HISTORY AND PHYSICAL: DATE OF ADMISSION: 12/19/16 PRIMARY CARE PROVIDER: Dr. Conner. CHIEF COMPLAINT: Syncope. HISTORY OF PRESENT ILLNESS: Yessi Paniagua is known to us from prior medical hospitalizations, a very nice lady with a history of rheumatoid arthritis and sepsis due to left septic shoulder diagnosed in November 2016, who just completed 6 weeks of vancomycin intravenously. The patient stated that today she had 6 bowel movements. All of them were formed, but with preceding bout of abdominal cramping. After that, she had an episode of syncope when she was sitting down. She lost consciousness for several seconds. She denies any prodromal symptoms and she denies shortness of breath or chest pain before or after the episode. She was coherent after she regained consciousness. She had a similar episode yesterday after physical therapy and at that point, her systolic pressures were noted to be in the 90s. The patient appears mildly dehydrated. She may have viral gastroenteritis. She is going to be placed on overnight observation on telemetry monitored bed. PAST MEDICAL HISTORY: 1. History of hypertension. 2. History of fall and subsequent right trimalleolar ankle fracture, status post ORIF by Dr. Shrestha on 10/30/16, now under the care of Dr. Enriquez. 3. Sepsis due to left septic shoulder diagnosed in November 2016 after 6 weeks of vancomycin treatment, completed yesterday on 12/18/16 and that was under the care of Dr. Leal. 4. History of rheumatoid arthritis. 5. Hyperlipidemia. 6. Hypothyroidism. 7. History of cholecystectomy. 8. History of total hysterectomy and bilateral salpingo-oophorectomy. 9. Bilateral total knee replacements. MEDICATIONS: Include: 1. Amlodipine 5 mg daily. 2. Simvastatin 20 mg at bedtime. 3. Pataday 0.2% ophthalmic solution 1 drop both eyes q.a.m. 4. Boost nutritional supplement 1 can daily. 5. Methotrexate 10 mg p.o. every Friday. 6. Milk of magnesia on a p.r.n. basis. 7. Levothyroxine 25 mcg daily. 8. Lactobacillus 1 capsule b.i.d. 9. Hydrocodone with acetaminophen every 4 hours p.r.n. 10. Folic acid 1 mg daily. 11. Colace 100 mg b.i.d. 12. Vitamin B12 injections at 1000 mcg monthly. 13. Vitamin D3, 3000 units p.o. monthly. 14. Calcium with vitamin D 1 tablet daily. 15. Dulcolax suppository on a p.r.n. basis. 16. Atenolol 25 mg daily. 17. Aspirin 325 mg daily. 18. Mylanta on a p.r.n. basis. 19. Acetaminophen on a p.r.n. basis. ALLERGIES: PENICILLIN. FAMILY HISTORY: Reviewed and noncontributory. SOCIAL HISTORY: Denies any tobacco, alcohol, or drug use. She currently is in rehabilitation at [facility] and custodial facility. Her healthcare proxy is her who is a local dentist and still currently practising. REVIEW OF SYSTEMS: Please see history of present illness. The patient stated that she had been doing "wonderfully." She currently denies abdominal pain, but she stated that just before she has a bowel movement, has abdominal cramping. She had 6 formed bowel movements today preceded by abdominal cramping. She denies any nausea or vomiting. Her appetite had been good. She stated that she had been drinking "plenty of water." She also had a couple of episodes of abdominal cramping and formed bowel movements yesterday. She had been doing well with physical therapy. All the remaining 14 systems were reviewed with the patient and were otherwise negative. PHYSICAL EXAMINATION GENERAL: The patient is a very pleasant 86-year-old female who is in no acute distress. Alert, awake, and oriented x3. VITAL SIGNS: Blood pressure of 122/41, heart rate of 68 and regular, respiratory rate 18, oxygen saturation 99% on room air, and temperature 97.6. HEENT: Head: Atraumatic, normocephalic. Eyes: Pupils equal, reactive to light and accommodation. Oropharynx clear. Mucosa moist. NECK: Supple. No JVD, no bruit bilaterally. RESPIRATORY: Clear to auscultation bilaterally. CARDIOVASCULAR: Regular rate and rhythm. No murmur. ABDOMEN: Slightly distended. Soft, nontender. Bowel sounds present in all 4 quadrants. EXTREMITIES: There is no pedal edema. Pulses are +2 bilaterally. No clubbing or cyanosis. Specifically on evaluation of the right postoperative ankle, the hardware is palpable through the skin. There is a very slight area of chronic erythema where the wounds had healed. Slightly increased warmth. There is no evidence of cellulitis. There is no evidence of effusion. The ankle was not tender to palpation. On evaluation of the bilateral feet, pulses are +2 bilaterally. There is no clubbing or cyanosis. SKIN: On evaluation of the skin, as above mentioned, scarred tissue on the right ankle that is healing well. No evidence of dehiscence. No evidence of wound infection and no open wounds per se. NEUROLOGIC EVALUATION: Speech clear. Cranial nerves II through XII grossly intact. Motor strength is 5/5 bilaterally. LABORATORY DATA: Showed white blood cell count of 11.7, hemoglobin is 9.3, hematocrit is 28, and platelets 386. ESR of 60. Sodium 134, potassium 4.1, chloride 101, carbon dioxide 28, BUN 28, creatinine 1.04. Liver function tests were unremarkable. C-reactive protein of 23. Troponin of 0.02. The patient's EKG showed normal sinus rhythm with heart rate of 68 beats per minute with right bundle branch block. Comparing with prior EKG from October, it appears unchanged. ASSESSMENT AND PLAN: 1. Recurrent syncopal episode that was preceded by abdominal cramping and multiple bowel movements. I believe the patient may have ongoing gastroenteritis and a vagal syncope. The patient also may be slightly orthostatic, which was documented yesterday right after the patient had syncope at [facility]. At this point, the patient is going to be placed on observation on telemetry monitored bed to evaluate for arrhythmias. She had a transthoracic echocardiogram performed in November 2016, which showed EF of 60% to 65% with moderate tricuspid regurgitation and moderate mitral regurgitation and RV hypokinesis. I do not believe the patient needs another echocardiogram at this point. Troponins had been negative x2 already. I will also obtain the patient' s orthostatic blood pressures and heart rate. 2. In regards to the patient's postsurgical right ankle, it appears that it is healing well. I will ask Dr. Enriquez to see the patient for confirmation of that. I do not believe that there is an acute infection ongoing. 3. In regards to the patient's history of septic left shoulder, the patient has osteoarthritis of bilateral shoulders, but no evidence of new effusion and no evidence of skin infection on bilateral shoulder evaluation. The patient finished vancomycin. Her last dose was 12/18/16. 4. In regards to rheumatoid arthritis, the patient's methotrexate is going to be held while in the hospital. 5. In regards to hypertension, due to the patient's orthostasis yesterday and syncope, I am going to hold her antihypertensive medications and observe. 6. For DVT prophylaxis, the patient is going to be placed on heparin subcutaneously. 7. The patient's surrogate decision maker is the patient's . TIME SPENT: Please note that approximately 65 minutes were spent on admission of this patient, more than half that time was spent [id number] with the patient during the interview and physical exam. CC: Dr. Conner; Dr. Enriquez; Dr. Leal* [id number]/[facility] #: [id number] MTDD
[2016-12-19] MEDS: Lactobacillus Acidophilu (GG)* 1 CAP CAP PO SCH (21:29)
--- NOTE | 2016-12-19 21:29 | RAD ---
INDICATION: Right ankle fractures status post operative reduction. COMPARISON: Comparison is made with prior studies from October 29, 2016, November 19, 2016 and December 13, 2016. TECHNIQUE: 3 views of the right ankle were obtained. FINDINGS: There is mild diffuse soft tissue swelling present. The bones are osteopenic. The patient is status post operative reduction and internal fixation of a bimalleolar fracture. There is a metallic plate present along the lateral aspect of the fibula transversing the fracture fragments transfixed with multiple screws. In addition, there are 2 surgical screws transversing the fracture of the medial malleolus. The bones are in normal alignment. The fibular fracture is only faintly visualized and appears unchanged. The fracture of the medial malleolus is still well-visualized and unchanged from the prior exam. IMPRESSION: STATUS POST OPERATIVE REDUCTION AND INTERNAL FIXATION OF A BIMALLEOLAR FRACTURE. THERE IS NO SIGNIFICANT CHANGE FROM THE PRIOR STUDY.
[2016-12-19] MEDS: Acetaminophen TAB* 325 MG PO PRN (21:30)
[2016-12-19] MEDS: Heparin VIAL(*) 5000 UNITS/ML VIAL (FIVE THOUSAND) SUBCUT SCH (21:30)
[2016-12-20] MEDS: Levothyroxine TAB* 25 MCG TAB PO SCH (05:57)
[2016-12-20] MEDS: Heparin VIAL(*) 5000 UNITS/ML VIAL (FIVE THOUSAND) SUBCUT SCH ×3 (05:57→22:28)
[2016-12-20 06:47] LABS: Hematocrit 27 % (35-47); Mean Corpuscular HGB Conc 34 g/dl (31-36); Mean Corpuscular Hemoglobin 32 pg (27-31); Mean Corpuscular Volume 93 fL (80-97); Mean Platelet Volume 8 um3 (7.4-10.4); Red Blood Count 2.85 10^6/ul (4.0-5.4); Red Cell Distribution Width 15 % (10.5-15); White Blood Count 8.2 10^3/ul (3.5-10.8)
[2016-12-20 07:05] LABS: BUN/Creatinine Ratio 27.7 (8-20); Calcium 9.1 mg/dL (8.6-10.3); EGFR Non-African American 65.3 (>60); Potassium 4.1 mmol/L (3.5-5.0)
[2016-12-20] MEDS: Folic Acid TAB* 1 MG PO SCH (08:27)
[2016-12-20] MEDS: Aspirin TAB* 325 MG PO SCH (08:27)
[2016-12-20] MEDS: Lactobacillus Acidophilu (GG)* 1 CAP CAP PO SCH ×2 (08:27→22:25)
[2016-12-20] MEDS: Olopatadine 0.2% (NF) 1 DROP BTL BOTH EYES SCH (08:29)
--- NOTE | 2016-12-20 10:16 | PN ---
Progress Note - Progress Note Note: No change in alignment on xray. She may follow up with Dr. Enriquez at her scheduled appointment.
--- NOTE | 2016-12-20 20:23 | PN ---
Subjective Date of Service: 12/20/16 Interval History: Patient seen and examined at bedside. Pt states that she has had no further episodes and has been able to walk to the bathroom. Denies fever, chills, dizziness, lightheadedness, shortness of breath, chest discomfort, abdominal pain, N/V/D. Pt states that she has not moved her bowels in 1-2 days, she doesn' t feel bloated or distended. Pt doesn't feel that she is ready to leave today, she has not moved her bowels and is afraid she may have another episode and would like to leave in the morning. Tele: Sinus rhythm, rate 60's Family History: Unchanged from Admission Social History: Unchanged from Admission Past Medical History: Unchanged from Admission Objective Active Medications: Acetaminophen (Tylenol Tab*) 650 mg PO Q4H PRN Reason: FEVER/PAIN Al Hydrox/Mg Hydrox/Simethicone (Maalox Plus*) 15 ml PO Q4HR PRN Reason: DYSPEPSIA Aspirin (Aspirin Tab*) 325 mg PO DAILY TWILA Folic Acid (Folvite Tab*) 1 mg PO DAILY TWILA Heparin Sodium (Porcine) (Heparin Flush Picc/Ml/Cvc(*)) 1 ml FLUSH 0600,1800 TWILA Reason: Protocol Heparin Sodium (Porcine) (Heparin Vial(*)) 5,000 units SUBCUT Q8HR TWILA Sodium Chloride (Ns 0.9% 1000 Ml*) 1,000 mls @ 100 mls/hr IV PER RATE TWILA Lactobacillus Rhamnosus (Culturelle*) 1 cap PO BID TWILA Levothyroxine Sodium (Synthroid Tab*) 25 mcg PO DAILY@0600 TWILA Magnesium Hydroxide (Milk Of Magnesia Liq*) 30 ml PO QAM PRN Reason: CONSTIPATION Olopatadine HCl (Pataday 0.2% (Nf)) 1 drop BOTH EYES QAM TWILA Oxycodone/Acetaminophen (Percocet 5/325 Tab*) 1 tab PO Q4H PRN Reason: Pain Vital Signs 12/19/16 12/19/16 12/19/16 21:26 21:28 21:30 Temperature Pulse Rate 68 76 87 Respiratory Rate Blood Pressure 131/51 143/59 145/51 (mmHg) O2 Sat by Pulse 98 Oximetry 03/16/17 03/17/17 03/17/17 23:10 03:30 04:19 Temperature 99.5 F 97.9 F Pulse Rate 71 66 Respiratory 16 16 Rate Blood Pressure 156/70 163/49 (mmHg) O2 Sat by Pulse 100 83 95 Oximetry 12/20/16 12/20/16 12/20/16 07:31 08:00 11:14 Temperature 98.5 F 97.9 F Pulse Rate 69 76 Respiratory 16 16 16 Rate Blood Pressure 140/41 153/60 (mmHg) O2 Sat by Pulse 98 96 Oximetry 12/20/16 12/20/16 15:36 19:53 Temperature 97.5 F 97.8 F Pulse Rate 71 76 Respiratory 18 17 Rate Blood Pressure 163/51 137/46 (mmHg) O2 Sat by Pulse 97 98 Oximetry Oxygen Devices in Use Now: None Appearance: NAD, laying in bed Eyes: No Scleral Icterus, PERRLA Ears/Nose/Mouth/Throat: NL Teeth, Lips, Gums, Mucous Membranes Moist Neck: NL Appearance and Movements; NL JVP, Trachea Midline Respiratory: Symmetrical Chest Expansion and Respiratory Effort, Clear to Auscultation Cardiovascular: NL Sounds; No Murmurs; No JVD, RRR Abdominal: NL Sounds; No Tenderness; No Distention Extremities: No Edema Skin: No Rash or Ulcers Neurological: Alert and Oriented x 3, NL Muscle Strength and Tone Lines/Tubes/Other Access: Clean, Dry and Intact Peripheral IV - site benign Nutrition: Taking PO's Result Diagrams: 12/20/16 06:00 12/20/16 06:00 Microbiology and Other Data: Microbiology 12/19/16 16:10 Nasal Screen MRSA (PCR)(SLY) - Final Nasal Mrsa Negative Assess/Plan/Problems-Billing Assessment: Ms. Paniagua is a 86 yo female with PMH significant for recent sepsis due to left septic shoulder, who just completed 6 weeks of IV vanco, HTN, and RA who presented to the emergency room for syncope. - Patient Problems (1) Syncope Code(s): R55 - SYNCOPE AND COLLAPSE SNOMED Code(s): 922962876 Comment: - No events noted on tele - Last echo 11/2016 - showed EF 60-65%, moderate TR, moderate MR and RV hypokinesis - Orthostatic VS negative - Suspect this may have been a vagal syncope (2) Septic arthritis of shoulder, left Code(s): M00.9 - PYOGENIC ARTHRITIS, UNSPECIFIED SNOMED Code(s): 60806960 Comment: - No evidence of a new effusion - Completed Vanco 12/18/16 (3) Trimalleolar fracture of ankle, closed Code(s): S82.853A - DISPLACED TRIMALLEOLAR FRACTURE OF UNSP LOWER LEG, INIT SNOMED Code(s): 0317662 Comment: - s/p ORIF on 10/30/16 - Ortho evaluated site and feels that it is healing well (4) HTN (hypertension) Code(s): I10 - ESSENTIAL (PRIMARY) HYPERTENSION SNOMED Code(s): 35089056 Comment: - Pt had orthostasis prior to admission - SBP 130-160's - Will recheck orthostatic VS in AM - Will resume atenolol in the morning - Will resume amlodipine after checking orthostatic VS in AM if indicated (5) Arthritis, rheumatoid Code(s): M06.9 - RHEUMATOID ARTHRITIS, UNSPECIFIED SNOMED Code(s): 45335932 Comment: - Hold methotrexate, resume at discharge (6) HLD (hyperlipidemia) Code(s): E78.5 - HYPERLIPIDEMIA, UNSPECIFIED SNOMED Code(s): 05802168 Comment: - Continue statin. (7) DVT prophylaxis Code(s): HBP0308 - SNOMED Code(s): 506884809 Comment: - SQ heparin. Status and Disposition: Inpatient. Plan for possible discharge back to [facility] in the AM.
[2016-12-21] MEDS: Levothyroxine TAB* 25 MCG TAB PO SCH (05:36)
[2016-12-21] MEDS: Heparin VIAL(*) 5000 UNITS/ML VIAL (FIVE THOUSAND) SUBCUT SCH (05:37)
[2016-12-21 08:21] VITALS: BP 153/51
[2016-12-21] MEDS: Acetaminophen TAB* 325 MG PO PRN (08:39)
[2016-12-21] MEDS: Folic Acid TAB* 1 MG PO SCH (08:39)
[2016-12-21] MEDS: Aspirin TAB* 325 MG PO SCH (08:39)
[2016-12-21] MEDS: Lactobacillus Acidophilu (GG)* 1 CAP CAP PO SCH (08:41)
[2016-12-21] MEDS: Olopatadine 0.2% (NF) 1 DROP BTL BOTH EYES SCH (08:41)
[2016-12-21] MEDS ORDERED: Atenolol TAB* 25 MG PO SCH (09:00)
--- NOTE | 2016-12-21 09:14 | PN ---
Subjective Date of Service: 12/21/16 Interval History: Patient seen and examined at bedside. Ms. Paniagua was able to demonstrate getting out of bed independently and is walking in her room independently with her walker. She denies fever/chills, CP, SOB, abd pain, n/v. She reports having no BM x 2 days but feels as if she could move her bowels this morning. She has no other complaint and is ready for discharge this morning. No nursing concerns. Telemetry: SR 70s Family History: Unchanged from Admission Social History: Unchanged from Admission Past Medical History: Unchanged from Admission Objective Active Medications: Acetaminophen (Tylenol Tab*) 650 mg PO Q4H PRN PRN Reason: FEVER/PAIN Last Admin: 12/21/16 08:39 Dose: 650 mg Al Hydrox/Mg Hydrox/Simethicone (Maalox Plus*) 15 ml PO Q4HR PRN PRN Reason: DYSPEPSIA Aspirin (Aspirin Tab*) 325 mg PO DAILY ON LICENSE OF [facility] Last Admin: 12/21/16 08:39 Dose: 325 mg Atenolol (Tenormin Tab*) 25 mg PO DAILY ON LICENSE OF [facility] Last Admin: 12/21/16 08:39 Dose: 25 mg Folic Acid (Folvite Tab*) 1 mg PO DAILY ON LICENSE OF [facility] Last Admin: 12/21/16 08:39 Dose: 1 mg Heparin Sodium (Porcine) (Heparin Flush Picc/Ml/Cvc(*)) 1 ml FLUSH 0600,1800 ON LICENSE OF [facility] PRN Reason: Protocol Last Admin: 12/21/16 05:39 Dose: 1 ml Heparin Sodium (Porcine) (Heparin Vial(*)) 5,000 units SUBCUT Q8HR ON LICENSE OF [facility] Last Admin: 12/21/16 05:37 Dose: 5,000 units Sodium Chloride (Ns 0.9% 1000 Ml*) 1,000 mls @ 100 mls/hr IV PER RATE ON LICENSE OF [facility] Last Admin: 12/19/16 16:38 Dose: 100 mls/hr Lactobacillus Rhamnosus (Culturelle*) 1 cap PO BID ON LICENSE OF [facility] Last Admin: 12/21/16 08:41 Dose: 1 cap Levothyroxine Sodium (Synthroid Tab*) 25 mcg PO DAILY@0600 ON LICENSE OF [facility] Last Admin: 12/21/16 05:36 Dose: 25 mcg Magnesium Hydroxide (Milk Of Magnesia Liq*) 30 ml PO QAM PRN PRN Reason: CONSTIPATION Olopatadine HCl (Pataday 0.2% (Nf)) 1 drop BOTH EYES QAM TWILA Last Admin: 12/21/16 08:41 Dose: Not Given Oxycodone/Acetaminophen (Percocet 5/325 Tab*) 1 tab PO Q4H PRN PRN Reason: Pain Vital Signs 12/20/16 12/20/16 12/20/16 11:14 15:36 19:53 Temperature 97.9 F 97.5 F 97.8 F Pulse Rate 76 71 76 Respiratory 16 18 17 Rate Blood Pressure 153/60 163/51 137/46 (mmHg) O2 Sat by Pulse 96 97 98 Oximetry 12/20/16 12/21/16 12/21/16 20:00 00:06 03:57 Temperature 97.9 F Pulse Rate 79 77 Respiratory 16 16 16 Rate Blood Pressure 139/38 171/45 (mmHg) O2 Sat by Pulse 98 99 Oximetry 12/21/16 12/21/16 07:44 08:00 Temperature 97.9 F Pulse Rate 73 Respiratory 16 14 Rate Blood Pressure 153/51 (mmHg) O2 Sat by Pulse 98 Oximetry Oxygen Devices in Use Now: None Appearance: Female patient, ambulating in room, in NAD Eyes: PERRLA Ears/Nose/Mouth/Throat: Clear Oropharnyx, Mucous Membranes Moist Neck: NL Appearance and Movements; NL JVP Respiratory: Symmetrical Chest Expansion and Respiratory Effort, Clear to Auscultation Cardiovascular: NL Sounds; No Murmurs; No JVD, RRR Abdominal: NL Sounds; No Tenderness; No Distention Extremities: No Edema Skin: No Rash or Ulcers Neurological: Alert and Oriented x 3, NL Gait, NL Muscle Strength and Tone Lines/Tubes/Other Access: Clean, Dry and Intact Peripheral IV Nutrition: Taking PO's Result Diagrams: 12/20/16 06:00 12/20/16 06:00 Microbiology and Other Data: Microbiology 12/19/16 16:10 Nasal Screen MRSA (PCR)(SLY) - Final Nasal Mrsa Negative Assess/Plan/Problems-Billing Assessment: Ms. Paniagua is a 86 yo female with PMH significant for recent sepsis due to left septic shoulder, who just completed 6 weeks of IV vanco, HTN, and RA who presented to the emergency room for syncope. - Patient Problems (1) Syncope Code(s): R55 - SYNCOPE AND COLLAPSE Comment: No further episodes noted. No events noted on telemetry. Last echo 11/2016 - showed EF 60-65%, moderate TR, moderate MR and RV hypokinesis Orthostatic VS negative, suspect this may have been a vasovagal syncope. (2) Septic arthritis of shoulder, left Code(s): M00.9 - PYOGENIC ARTHRITIS, UNSPECIFIED Comment: No evidence of a new effusion. Completed [facility] 12/18/16 Outpatient f/u with ortho and ID as previously directed. (3) Trimalleolar fracture of ankle, closed Code(s): S82.853A - DISPLACED TRIMALLEOLAR FRACTURE OF UNSP LOWER LEG, INIT Comment: s/p ORIF on 10/30/16 Ortho evaluated site and feels that it is healing well. (4) HTN (hypertension) Code(s): I10 - ESSENTIAL (PRIMARY) HYPERTENSION Comment: Pt had orthostasis prior to admission, SBP 130-160's Orthostatic VS negative this AM following atenolol. Continue home atenolol. Patient is normotensive with atenolol. Hold amlodipine, as this may be contributing to orthostasis. Outpatient f/u with PCP re: furter titration of BP meds. (5) Arthritis, rheumatoid Code(s): M06.9 - RHEUMATOID ARTHRITIS, UNSPECIFIED Comment: Hold methotrexate, resume at discharge. (6) HLD (hyperlipidemia) Code(s): E78.5 - HYPERLIPIDEMIA, UNSPECIFIED Comment: Continue statin. (7) DVT prophylaxis Code(s): VKM3134 - Comment: SQ heparin Status and Disposition: Inpatient. Discharge to [facility].
--- NOTE | 2016-12-21 15:55 | DS ---
DISCHARGE SUMMARY: DATE OF ADMISSION: 12/19/16 DATE OF DISCHARGE: 12/21/16 PROVIDER: Jaison Salazar NP. ATTENDING PHYSICIAN: Dr. Toño Guadarrama *(dictated by Jaison Salazar NP). PRIMARY CARE PHYSICIAN: PCP the patient states is Dr. Tacho Horton, the record also states Dr. Conner. PRIMARY DISCHARGE DIAGNOSIS: Syncope. SECONDARY DISCHARGE DIAGNOSES: 1. Hypertension. 2. History of fall and subsequent right trimalleolar ankle fracture, status post ORIF by Dr. Shrestha on 10/30/16, now under the care of Dr. Enriquez. 3. Sepsis secondary to left septic shoulder diagnosed in November 2016 after 6 weeks of vancomycin treatment, which was completed on 12/18/16 and is under the care of Dr. Leal. 4. History of rheumatoid arthritis. 5. Hyperlipidemia. 6. Hypothyroidism. 7. History of cholecystectomy. 8. History of total hysterectomy and bilateral salpingo-oophorectomy. 9. History of bilateral total knee replacements. MEDICATIONS AT DISCHARGE: 1. [place] 5/325 one tab q.4 hours p.r.n. 2. Mylanta 15 mL q.4 hours p.r.n. 3. Acetaminophen 650 q.6 hours p.r.n. 4. Dulcolax suppository 10 mg per rectum daily p.r.n. 5. Milk of magnesia 30 mL q.a.m. p.r.n. 6. Boost nutritional supplement 1 can daily. 7. Methotrexate 10 mg every Friday. 8. Cholecalciferol 50,000 units p.o. monthly. 9. Calcium carbonate - vitamin D supplement 1 tab daily. 10. Lactobacillus 1 capsule b.i.d. 11. Levothyroxine 25 mcg daily. 12. Docusate 100 mg b.i.d. 13. Pataday 0.2% eyedrops 1 drop to both eyes q.a.m. 14. Simvastatin 20 mg at bedtime. 15. Folic acid 1 mg daily. 16. Vitamin B12 injection 1000 mcg IM monthly. 17. Atenolol 25 mg daily. 18. Aspirin 325 mg daily. The patient was previously on amlodipine 5 mg daily. This has been discontinued. HOSPITAL COURSE OF STAY: For full details, please refer to the H and P provided by Dr. José on 12/19/16. In summary, Ms. Yessi Paniagua is an 86- year-old female who presented to the ED on 12/19/16 with report of having multiple bowel movements. The patient had complaints of abdominal cramping and then had subsequent episode of syncope when she was sitting down, where she lost consciousness for several seconds. She denies any other prodromal symptoms , shortness of breath, or chest pain. The patient had a similar episode the day before admission after physical therapy. Upon admission it was noted that she appeared dehydrated, perhaps secondary to a viral gastroenteritis. She was admitted for observation for these recurrent syncopal episodes. The following day the patient reported improvement, although I did express concern that she had not moved her bowels yesterday. There were no further episodes of syncope. No events were noted on telemetry. Her orthostatic vital signs were negative. Her echocardiogram done in November 2016 showed that she had an EF of 60% to 65% with moderate tricuspid regurgitation and moderate mitral regurgitation as well as right ventricular hypokinesis. She is able to demonstrate safe ambulation with her walker. In regards to her recent fractures, the patient was seen by Dr. Farnsworth here. Per his notes, he felt that the ankle was healing appropriately. I recommended that the patient follow up with Dr. Enriquez at her next scheduled appointment, which is next week. The patient did have a right ankle x-ray done, which showed status post operative reduction and internal fixation of a bimalleolar fracture. There is no significant change from the prior study. The patient has been receiving treatment for her left septic shoulder arthritis and completed her vancomycin treatment on 12/18/16. On the day of discharge, the patient is not complete as ambulatory. Her blood pressure medications were held initially upon admission and were restarted today. She remains normotensive with the atenolol and is not requiring any further medications to keep her blood pressure within the 120 to 130 range. At this point in time, I have discontinued her amlodipine as this may be contributing to her orthostasis as well as the syncopal events. However, it seems most likely the syncopal events are secondary to dehydration from the frequent bowel movements the patient was having. In any case, patient was advised to monitor her blood pressures and follow up with her PCP next week to discuss the continuation of the amlodipine. The patient has no other concerns. Denies any acute complaints and feels ready to go home. CONCERNS AT DISCHARGE: The patient will be discharged to home on 12/21/16 with a plan to follow up with her PCP next week as well as Orthopedics. She will call Dr. Leal's office to determine if she needs to have any further followup with his office. DIET: Heart healthy diet. ACTIVITY: As tolerated. CONDITION: Stable. DISPOSITION: To home at [facility]. TIME SPENT: Time spent on this discharge was approximately 40 minutes. Again, this is only a brief summary of the patient's hospital course of stay. For full details, please refer to the full medical record. If you have any further questions or need further assistance, please feel free to contact me at [phone]. JAISON SALAZRA NP CC: Dr. Tacho Horton; Dr. Conner; Dr. Shrestha; Dr. Enriquez * [id number]/[facility] #: [id number] MTDRebeca
--- NOTE | 2016-12-22 09:37 | ED ---
Te Clemons Matthew, scribed for Jai Bowen MD on 12/19/16 at 1151 . Syncope/Near Syncope - HPI Summary HPI Summary: An 86 y/o female presents to the ED pre-syncopal from [facility] at 10: 40 this morning. She was recently treated for septic left shoulder with IV vancomycin on 12/17. According to Danny, she was found this morning pre- syncopal and hypotensive at 90/58. The patient does not remembering being pre- syncopal this morning. She states that she was feeling perfectly fine this morning, ate breakfast, returned to her room, and began to read a book, when she was found by the retirement pre-syncopal. Associated symptoms include general weakness, diarrhea - which resolved yesterday at 15:00, suprapubic abdominal pain, and increased urination frequency. The patient denies fever, chest pain, chills, SOB, dysuria, vomiting, dizziness, lightheadedness, body aches, and cough. The patient had two normal BM this morning. Also according to Danny, she was found unresponsive two times in the last two days. She has a Hx of fracture ankle on the October 27 and Hx of sceptic shoulder. PMHx includes RA and she takes methotrexate. Per visit with Katalina Stewart on An 86 y/o female seen in her SN room for an unresponsive episode this am. Resident had recently returned from OT where staff states she was likely doing up and down exercises. Resident was sitting in wheelchair and started to star off in space, pupils constricted, arms, flaccid, no drooping. Unresponsive episode lasted for approximately 2-5 minutes. Afterwards resident was able to acknowledge staff but didn't remember the episode. Resident states that she needed to have BM. When she was going to the bathroom via wheelchair to have a BM she again started to get "sleepy", diaphoretic but could squeeze staff hands. BP was 90/41. She was put into bed with legs elevated and she became more alert. Resident declined going out to ER. HR in bed was 60. Later resident was able to have BM without problems and transferring was fine. BP then was 140/ 5. Standing 13/58. Supine 140/60. Currently resident thinks she has diarrhea. Staff think stool is soft but not watery. resident is currently being treated for septic left shoulder with IV Vanco and is on Acidophilus. She had some loose stools on 12/14/16. Resident denies chest pain, palpitations, new weakness, pain, increased confusion, or difficulty speaking. END NOTE - History Of Current Complaint Time Seen by Provider: 12/19/16 11:14 Hx Obtained From: Patient Onset/Duration: Lasting Hours, Still Present Timing: Constant Context: Other - Found unresponsive by danny nursing staff Activity At Onset: At Rest Associated Head Trauma: No Aggravating Factor(s): Nothing Alleviating Factor(s): Nothing Associated Signs And Symptoms: Diarrhea, Weakness - General, Other - Increased urination frequency; general weakness - Allergies/Home Medications Allergies/Adverse Reactions: Allergies Allergy/AdvReac Type Severity Reaction Status Date / Time Penicillins Allergy Unknown Unknown Verified 11/04/16 21:14 Reaction Details Home Medications: Home Medications Acetaminophen SUPP* [Tylenol Supp*] 650 mg SC Q6H PRN 12/19/16 [History Confirmed 12/19/16] Acetaminophen TAB* [Tylenol TAB*] 650 mg PO Q6HR PRN 12/19/16 [History Confirmed 12/19/16] Alum & Mag Hydrox-Simethicone [Mylanta 200-200-20 mg/5Ml] 15 ml PO Q4HR PRN [History Confirmed 12/19/16] Bisacodyl SUPP* [Dulcolax Supp*] 10 mg SC DAILY PRN 12/19/16 [History Confirmed 12/19/16] Cholecalciferol CAP/TAB(NF) [Vitamin D3 CAP/TAB (NF)] 50,000 unit PO MONTHLY [History Confirmed 12/19/16] Cyanocobalamin INJ * [Vitamin B12 INJ *] 1,000 mcg IM MONTHLY 12/19/16 [History Confirmed 12/19/16] Docusate CAP* [Colace Cap*] 100 mg PO BID 12/19/16 [History Confirmed 12/19/16] Magnesium Hydroxide LIQ* [Milk of Magnesia LIQ*] 30 ml PO QAM PRN 12/19/16 [ History Confirmed 12/19/16] Methotrexate Sodium [Trexall] 10 mg PO FR 12/19/16 [History Confirmed 12/19/16] Nutritional Supplements [Boost] 1 can PO DAILY 12/19/16 [History Confirmed 12/19] PMH/Surg Hx/FS Hx/Imm Hx Endocrine/Hematology History: Reports: Hx Thyroid Disease - hypothyroidism Denies: Hx Anticoagulant Therapy, Hx Blood Disorders, Hx Diabetes, Hx Anemia , Hx Unexplained Bleeding Cardiovascular History: Reports: Hx Hypercholesterolemia, Hx Hypertension, Hx Syncope, Other Cardiovascular Problems/Disorders - hyperlipidemia Denies: Hx Congestive Heart Failure, Hx Pacemaker/ICD Respiratory History: Reports: Hx Lung Cancer, Hx Pneumonia - 16 yrs ago., Hx Seasonal Allergies Denies: Hx Asthma, Hx Chronic Obstructive Pulmonary Disease (COPD) GI History: Reports: Hx Diverticulosis, Other GI Disorders - DIVERTICULOSIS Denies: Hx Ulcer History: Denies: Hx Dialysis, Hx Renal Disease Musculoskeletal History: Reports: Hx Arthritis, Other Musculoskeletal History - RA Denies: Hx Back Problems, Hx Osteoporosis Sensory History: Reports: Hx Cataracts - removed, Hx Contacts or Glasses, Hx Hearing Aid Opthamlomology History: Reports: Hx Cataracts - removed, Hx Contacts or Glasses Neurological History: Denies: Hx Dementia, Hx Seizures Psychiatric History: Denies: Hx Panic Disorder - Cancer History Cancer Type, Location and Year: lung cancer two years ago, small, removed, no chemo - Surgical History Surgery Procedure, Year, and Place: BILATERAL KNEE REPLACEMENT, CHOLECYSTECTOMY , APPENDECTOMY, RIGHT PARTIAL PNEUMONECTOMY Infectious Disease History: Denies: Hx Hepatitis, Hx Human Immunodeficiency Virus (HIV), Traveled Outside the [place] in Last 30 Days - Family History Known Family History: Positive: Hypertension - Social History Alcohol Use: Daily Alcohol Amount: 1 glass of wine per day Hx Substance Use: No Substance Use Type: Reports: None Hx Tobacco Use: Yes - 28 YRS AGO Smoking Status (MU): Former Smoker Amount Used/How Often: quit smoking over 25 yrs ago. Have You Smoked in the Last Year: No Review of Systems Constitutional: Negative Negative: Fever, Chills Eyes: Negative Negative: Erythema ENT: Negative Negative: Sore Throat Cardiovascular: Negative Negative: Chest Pain Respiratory: Negative Negative: Shortness Of Breath, Cough Positive: Abdominal Pain, Diarrhea - since resolved. Negative: Vomiting Positive: frequency - increased. Negative: dysuria, hematuria Musculoskeletal: Negative Negative: Myalgia, Edema Skin: Negative Negative: Rash Positive: Weakness - general Psychological: Normal All Other Systems Reviewed And Are Negative: Yes Physical Exam Triage Information Reviewed: Yes Vital Signs On Initial Exam: Temp Pulse Resp BP Pulse Ox 98.7 F 61 20 117/62 95 12/19/16 11:26 12/19/16 11:26 12/19/16 11:26 12/19/16 11:26 12/19/16 11:26 Vital Signs Reviewed: Yes Appearance: Positive: Well-Appearing, No Pain Distress, Well-Nourished Skin: Positive: Warm, Dry Head/Face: Positive: Other - Normocephalic; Atraumatic Eyes: Positive: Conjunctiva Clear ENT: Positive: Normal ENT inspection Dental: Negative: Cervical Lymphadenopathy Neck: Positive: Other: - Full ROM Respiratory/Lung Sounds: Positive: Other - Normal Effort. Negative: Rales, Rhonchi, Stridor, Tracheal Deviation, Wheezes Cardiovascular: Positive: RRR, Other - Heart sounds normal; Intact distal pulses ; The pedal pulses are 2+ and symmetric. Radial pulses are 2+ and symmetric. Negative: Murmur Abdomen Description: Positive: Nontender, Soft, Other: - No Rebound. Negative: Distended, Guarding Bowel Sounds: Positive: Present Musculoskeletal: Positive: Other - RIGHT ANKLE SWOLLEN AND WARM TO TOUCH Neurological: Positive: Alert, Oriented to Person Place, Time Psychiatric: Positive: Affect/Mood Appropriate Diagnostics - Laboratory Result Diagrams: 12/19/16 12:05 12/19/16 12:05 Lab Statement: Any lab studies that have been ordered have been reviewed, and results considered in the medical decision making process. - Radiology CXR Xray Interpretation: No Acute Changes - IMPRESSION: POSTSURGICAL CHANGES. HYPERINFLATION. NO ACTIVE DISEASE. Radiology Interpretation Completed By: Radiologist - EKG 14:42 Cardiac Rate: NL - 68 bpm EKG Rhythm: Sinus Rhythm EKG Interpretation: No STEMI EKG Comparison: No Significant Change - 10/29/16 Course/Dx Assessment/Plan: Started the patient on imperative antibiotics, because we could not contact Ortho and we couldnt r/o septic joint - Diagnoses Provider Diagnoses: SYNCOPE - Physician Notifications Discussed Care Of Patient With: Dr. Farnsworth (Ortho) at 15:38 Discussed the possibility of infected hardware or septic joint. He is going to see the patient. Discharge - Discharge Plan Condition: Stable Disposition: ADMITTED TO [facility] The documentation as recorded by the Te nelson Matthew accurately reflects the service I personally performed and the decisions made by me, Jai Bowen MD.
== END 2016-12-21 12:10 | disposition home or self-care (01) | DRG 312 ==
LOC: ED 11:11 → MEDTELE 14:09
PROVIDERS: ADMIT Internal Medicine; ATTEND Internal Medicine
DX: R55 Syncope and collapse (principal); M06.9 Rheumatoid arthritis, unspecified; I08.1 Rheumatic disorders of both mitral and tricuspid valves; E78.5 Hyperlipidemia, unspecified; E78.00 Pure hypercholesterolemia, unspecified; K57.90 Diverticulosis of intestine, part unspecified, without perforation or abscess without bleeding; E03.9 Hypothyroidism, unspecified; Z96.653 Presence of artificial knee joint, bilateral; Z88.0 Allergy status to penicillin; Z85.118 Personal history of other malignant neoplasm of bronchus and lung; Z87.891 Personal history of nicotine dependence
CPT/HCPCS: 36415; 71010; 80048; 80053; 83605; 84484; 85025; 85652; 86140; 87040; 87641; 93005; A9270-GY; J0692; J1644

== ENCOUNTER 2018-01-22 08:35 | Day surgery (SDC) | payer MEDICARE, OTHER ==
[~2018-01-22 08:35] MED LIST: Buffered Lidocaine 0.9% SYRIN* 5 ML/SYR SYRINGE INTRADERM ONE; Famotidine IV* 10 MG/ML 2 ML (20 mg) IV ONE; Vancomycin(*) 750 MG in NS 0.9% 250 ML* 250 ML IVPB ONE
[2018-01-22] MEDS ORDERED: Bupivacaine 0.5%* 50 ML VIAL ONE (08:47)
[2018-01-22] MEDS ORDERED: Famotidine TAB* 20 MG ONE (08:56)
[2018-01-22] MEDS ORDERED: Buffered Lidocaine 0.9% SYRIN* 5 ML/SYR SYRINGE ONE (08:56)
[2018-01-22] MEDS ORDERED: fentaNYL* 50 MCG/ML 2 ML VIAL (100 MCG VIAL) ONE (09:55)
[2018-01-22] MEDS ORDERED: Midazolam* 1 MG/ML 2 ML VIAL (2 MG) ONE (09:55)
[2018-01-22] MEDS ORDERED: Propofol* 10 MG/ML 20 ML BTL IV PUSH ONE (10:03)
[2018-01-22] MEDS ORDERED: Naloxone* 0.4 MG/ML 1 ML VIAL IV PRN (10:36)
--- NOTE | 2018-01-22 11:46 | OP ---
Operative Report - Blank - Operative Report Date of Operation: 01/22/18 Note: PATIENT: Yessi Paniagua DATE OF : 1930 DATE OF SURGERY: 01/22/2018 SURGEON: Rohan Nation MD COMPRESSOR STATION ENGINEER CHIEF: BIANCA Pollock, whos assistance was necessary for positioning, retraction, help with instrumentation, and closure. ANESTHESIOLOGIST: Dr. Montano PREOPERATIVE DIAGNOSIS: Right ankle painful retained hardware POSTOPERATIVE DIAGNOSIS: Right ankle painful retained hardware OPERATION: Right ankle removal of implants, deep. ANESTHESIA: MAC + local anesthetic IMPLANTS: 2 screws and 1 washer removed, none implanted TOURNIQUET TIME: none SPECIMENS: none ESTIMATED BLOOD LOSS: minimal COMPLICATIONS: none STATUS: Stable from the operating room to the recovery room and then home. INDICATIONS FOR PROCEDURE: Yessi had a prior right ankle ORIF. The medial screws had backed out and were causing prominence and tenting of the skin, with concern for impending ulceration. Both operative and non operative treatment alternatives were reviewed. Further, the nature and risks of surgery were reviewed in careful detail, in the office as well as the pre-operative holding area. Our discussions regarding the risks of surgery included, but were not limited to, infection, wound problems, nerve injury, neuroma, RSD, persistent symptoms, blood clot, need for further surgery, failure of the surgery, and even the remote chance of catastrophic complication, including loss of limb. DESCRIPTION OF PROCEDURE: The patient was seen in the preoperative holding unit and informed written consent was obtained. The appropriate extremity was marked. The patient was then brought to the operating room and carefully positioned on the operating room table. Anesthesia was induced. All bony prominences were padded with great care. A chlorhexidine based pre-scrub was performed followed by a chloraprep prep and drape in standard sterile fashion. A surgical safety pause was then conducted in which we confirmed the appropriate patient, extremity, planned procedure, availability of equipment, indication and administration of prophylactic antibiotics, and DVT prophylaxis in the form of a compression boot on the non-surgical extremity. I utilized a 2cm incision over the prominent hardware, ellipsing out the area that was at risk of ulceration. I used blunt dissection to expose the heads of the screws and took great care not to disturb the neurovascular structures. The hardware was exposed and a screw courtesy van driver was used to remove the screws. Fluoroscopy was then utilized to confirm that all of the medial hardware had been removed. There was no longer tenting of the medial skin. There were no rough edges on the bone. At this point, we irrigated copiously and then closed in layers meticulously utilizing 3-0 Monocryl and 3-0 nylon for the skin. A sterile dressing was then applied. The patient was then awakened from anesthesia and transferred to the recovery room in stable condition. There were no complications. All needle and sponge counts were correct at the end of the case. ATTESTATION: I attest I was present and scrubbed and performed the critical portions of the procedure myself. POSTOPERATIVE PLAN: The plan is to remove the sutures in 2 weeks. She will be weightbearing as tolerated in a postop shoe.
[2018-01-22 12:10] VITALS: BP 142/99
--- NOTE | 2018-01-22 14:39 | RAD ---
CPT II Codes: G9500 INDICATION: Removal of medial hardware Fluoroscopic services provided for referring physician. 1.6 seconds of fluoroscopy time was used. Single spot image demonstrates removal of tibial hardware. IMPRESSION: Fluoroscopic services provided for referring physician.
== END 2018-01-22 12:17 | disposition home or self-care (01) ==
LOC: OR 08:35
PROVIDERS: ATTEND Orthopaedic Surgery
DX: T84.84XA Pain due to internal orthopedic prosthetic devices, implants and grafts, initial encounter (principal); Y83.1 Surgical operation with implant of artificial internal device as the cause of abnormal reaction of the patient, or of later complication, without mention of misadventure at the time of the procedure; Z87.891 Personal history of nicotine dependence; Z85.038 Personal history of other malignant neoplasm of large intestine; Z85.118 Personal history of other malignant neoplasm of bronchus and lung; Z85.05 Personal history of malignant neoplasm of liver; E03.9 Hypothyroidism, unspecified; M06.9 Rheumatoid arthritis, unspecified; I65.29 Occlusion and stenosis of unspecified carotid artery
CPT/HCPCS: 76000; 88300; A9270-GY; J2250; J2704; J3010; J3370